=== PATIENT | male | born 1955 | race Caucasian/White ===

== ENCOUNTER 2017-01-17 13:46 | Inpatient (IN) ==
--- NOTE | 2017-01-17 13:54 | Emergency Department Note ---
Disposition Clinical Impression: Atrial fibrillation with rapid ventricular response, CHF (congestive heart failure) Disposition: Admitted As Inpatient Condition: Good General Adult HPI - General Stated complaint: "Afib" from UC Time Seen by Provider: 01/17/17 13:52 - Related Data Home Medications Medication Instructions Recorded Confirmed Doxycycline Hyclate [Doxycycline 100 mg PO Q48H 01/17/17 01/17/17 Hyclate] Lisinopril [Zestril] 20 mg PO DAILY 01/17/17 01/17/17 Metoprolol [Lopressor] 50 mg PO BID 01/17/17 01/17/17 Allergies Allergy/AdvReac Type Severity Reaction Status Date / Time Amoxicillin Allergy Rash Verified 01/17/17 16:26 Milk Containing Products Allergy Rash Verified 01/17/17 16:26 Penicillins [PCN] Allergy Rash Verified 07/26/15 14:43 Past Medical History - Past Medical History Medical history: Reports: hypertension Surgical history: Reports: non-contributory Psychiatric history: Reports: no psych history - Social History Smoking Status: Never smoker Smokeless Tobacco Status: No Alcohol use: Reports: none Drug use: Reports: none Course Vital Signs Temperature 97.6 F 01/17/17 13:50 Pulse Rate 131 01/17/17 13:50 Respiratory Rate 16 01/17/17 13:50 Blood Pressure 188/153 01/17/17 13:50 O2 Sat by Pulse Oximetry 96 01/17/17 13:50 Temperature 97.6 F 01/17/17 19:25 Pulse Rate 112 01/17/17 19:25 Respiratory Rate 18 01/17/17 19:25 Blood Pressure 144/97 01/17/17 19:25 O2 Sat by Pulse Oximetry 94 L 01/17/17 19:25 Oxygen Delivery Oxygen Delivery Room Air Medical Decision Making - Lab Data Result diagrams: 01/17/17 14:09 01/17/17 14:09 Lab Results 01/17/17 01/17/17 01/17/17 Range/Units 14:09 14:09 14:09 WBC 11.5 H (4.3-11.1) K/mcL RBC 5.43 (4.19-5.50) M/mcL Hgb 14.4 (12.9-16.9) g/dL Hct 45.1 (37.5-50.1) % MCV 83.1 (83.0-100.0) fL MCH 26.5 L (28.0-33.3) pg MCHC 31.9 (31.6-35.5) g/dL RDW 18.4 H (11.5-14.5) % Plt Count 389 (140-400) K/mcL MPV 11.6 (9.4-12.4) fL Immature Gran % 0.5 (0-4) % Seg Neutrophils % 78.9 % Lymphocytes % 12.8 % Monocytes % 6.2 % Eosinophils % 0.9 % Basophils % 0.7 % Neutrophils # 9.1 H (1.6-8.9) K/mcL Lymphocytes # 1.5 (0.6-4.6) K/mcL Monocytes # 0.7 (0.0-1.3) K/mcL Eosinophils # 0.1 (0.0-0.6) K/mcL Basophils # 0.1 (0.0-0.2) K/mcL PT (9.4-12.1) Seconds INR APTT (26.0-36.0) Seconds Sodium 140 (136-145) mEq/L Potassium 4.6 H (3.5-4.5) mEq/L Chloride 108 (98-109) mEq/L Carbon Dioxide 19 (19-29) mEq/L BUN 25 (8-26) mg/dL Creatinine 1.11 (0.72-1.25) mg/dL Est GFR ( Amer) > 60 (> 60) Est GFR (Non-Af Amer) > 60 (> 60) BUN/Creatinine Ratio 23 (6-26) Glucose 128 H (70-99) mg/dL Calculated Osmolality 296 (280-300) Calcium 9.4 (8.6-10.8) mg/dL Magnesium 1.6 (1.6-2.6) mg/dL Total Bilirubin 1.8 H (0.2-1.2) mg/dL AST 45 H (5-34) Units/L ALT 50 (0-55) Units/L Alkaline Phosphatase 264 H (38-126) Units/L Troponin I 0.09 H* (0-0.03) ng/mL B-Natriuretic Peptide (0-100) pg/mL Serum Total Protein 7.5 (6.0-8.3) g/dL Albumin 3.4 L (3.5-5.0) g/dL Globulin 4.1 H (2.4-3.5) g/dL Albumin/Globulin Ratio 0.8 L (1.1-2.2) TSH 3.653 (0.350-4.840) mcIU/mL 01/17/17 01/17/17 Range/Units 14:09 14:09 WBC (4.3-11.1) K/mcL RBC (4.19-5.50) M/mcL Hgb (12.9-16.9) g/dL Hct (37.5-50.1) % MCV (83.0-100.0) fL MCH (28.0-33.3) pg MCHC (31.6-35.5) g/dL RDW (11.5-14.5) % Plt Count (140-400) K/mcL MPV (9.4-12.4) fL Immature Gran % (0-4) % Seg Neutrophils % % Lymphocytes % % Monocytes % % Eosinophils % % Basophils % % Neutrophils # (1.6-8.9) K/mcL Lymphocytes # (0.6-4.6) K/mcL Monocytes # (0.0-1.3) K/mcL Eosinophils # (0.0-0.6) K/mcL Basophils # (0.0-0.2) K/mcL PT 15.7 H (9.4-12.1) Seconds INR 1.4 APTT 27.1 (26.0-36.0) Seconds Sodium (136-145) mEq/L Potassium (3.5-4.5) mEq/L Chloride (98-109) mEq/L Carbon Dioxide (19-29) mEq/L BUN (8-26) mg/dL Creatinine (0.72-1.25) mg/dL Est GFR ( Amer) (> 60) Est GFR (Non-Af Amer) (> 60) BUN/Creatinine Ratio (6-26) Glucose (70-99) mg/dL Calculated Osmolality (280-300) Calcium (8.6-10.8) mg/dL Magnesium (1.6-2.6) mg/dL Total Bilirubin (0.2-1.2) mg/dL AST (5-34) Units/L ALT (0-55) Units/L Alkaline Phosphatase (38-126) Units/L Troponin I (0-0.03) ng/mL B-Natriuretic Peptide 1175 H (0-100) pg/mL Serum Total Protein (6.0-8.3) g/dL Albumin (3.5-5.0) g/dL Globulin (2.4-3.5) g/dL Albumin/Globulin Ratio (1.1-2.2) TSH (0.350-4.840) mcIU/mL Critical Care Time Critical Care Time: Yes Total Critical Care Time: 30 Attestation: New-onset A. fib with RVR requiring IV rate control agents. Troponin positive. Patient admitted to the medicine service Attestation Statement - Attestation Attestation: I examined this patient and my medical decision-making was reviewed with the ENGINEERING TECHNICIAN PARKING/PA/Advanced Practice Nurse/Resident Physician. I agree with the documented findings, disposition and treatment plan as described except to the extent set forth below. [id number] time provided Patient sent from urgent care due to new onset atrial fibrillation. The patient appears in no acute distress on exam. EKG reviewed by me. 14:45: Patient's troponin is elevated. This could be due to demand ischemia. He will be admitted to the medicine service
[2017-01-17] MEDS ORDERED: *HR* Metoprolol 5 MG/5 ML VIAL IVP ONE ×2 (13:56→14:35)
[2017-01-17 14:16] LABS: Basophils # 0.1 K/mcL (0.0-0.2); Basophils % 0.7 %; Eosinophils # 0.1 K/mcL (0.0-0.6); Eosinophils % 0.9 %; Hematocrit 45.1 % (37.5-50.1); Hemoglobin 14.4 g/dL (12.9-16.9); Immature Granulocytes % 0.5 % (0-4); Lymphocytes # 1.5 K/mcL (0.6-4.6); Lymphocytes % 12.8 %; Mean Corpuscular HGB Conc 31.9 g/dL (31.6-35.5); Mean Corpuscular Hemoglobin 26.5 pg (28.0-33.3); Mean Corpuscular Volume 83.1 fL (83.0-100.0); Mean Platelet Volume 11.6 fL (9.4-12.4); Monocytes # 0.7 K/mcL (0.0-1.3); Monocytes % 6.2 %; Neutrophils # 9.1 K/mcL (1.6-8.9); Platelet Count 389 K/mcL (140-400); Red Blood Count 5.43 M/mcL (4.19-5.50); Red Cell Distribution Width 18.4 % (11.5-14.5); Segmented Neutrophils % 78.9 %
[2017-01-17 14:30] LABS: Alanine Aminotransferase 50 Units/L (0-55); Albumin 3.4 g/dL (3.5-5.0); Albumin/Globulin Ratio 0.8 (1.1-2.2); Alkaline Phosphatase 264 Units/L (38-126); Aspartate Amino Transferase 45 Units/L (5-34); BUN/Creatinine Ratio 23 (6-26); Bilirubin,Total 1.8 mg/dL (0.2-1.2); Blood Urea Nitrogen 25 mg/dL (8-26); Calcium 9.4 mg/dL (8.6-10.8); Carbon Dioxide 19 mEq/L (19-29); Chloride 108 mEq/L (98-109); Globulin 4.1 g/dL (2.4-3.5); Glucose 128 mg/dL (70-99); Magnesium 1.6 mg/dL (1.6-2.6); Osmolality,Calculated 296 (280-300); Potassium 4.6 mEq/L (3.5-4.5); Sodium 140 mEq/L (136-145); Total Protein 7.5 g/dL (6.0-8.3); eGFR For African Americans > 60 (> 60); eGFR For Non-African Americans > 60 (> 60)
[2017-01-17] MEDS ORDERED: Aspirin 81 MG TAB.CHEW PO ONE (14:35)
[2017-01-17 14:36] LABS: INR 1.4; Prothrombin Time 15.7 Seconds (9.4-12.1)
[2017-01-17 14:39] LABS: Activated Partial Thrombo Time 27.1 Seconds (26.0-36.0)
[2017-01-17] MEDS ORDERED: *HR* Enoxaparin 100 MG/ML SYRINGE SQ STA (14:39)
--- NOTE | 2017-01-17 14:43 | Emergency Department Note ---
Disposition Clinical Impression: Atrial fibrillation with rapid ventricular response CHF (congestive heart failure) Qualifiers: Congestive heart failure type: unspecified congestive heart failure type Congestive heart failure chronicity: acute Qualified Code(s): I50.9 - Heart failure, unspecified Disposition: Admitted As Inpatient Condition: Good Referrals: NO,PCP [Non-Partnered Physician] - Forms: ED Satisfaction Letter Time of Disposition: 14:50 SOB HPI - General Chief Complaint: ED Arrhythmia/Palpitations Stated Complaint: "Afib" from UC Time Seen by Provider: 01/17/17 13:52 Source: patient, family Mode of arrival: ambulatory Limitations: no limitations Nursing Notes Reviewed: Yes Vital Signs Reviewed: Yes - History of Present Illness 61-year-old male with past medical history of hypertension presents with shortness of breath worsening over the last week with associated nonproductive cough, fever and chills, and diarrhea. He has sick contacts similar symptoms and thought that he must have a viral syndrome. Additionally, he notes 2 pedal edema bilaterally and 10 pounds of weight gain over the last 2 weeks. He was seen in urgent care for this and found to be in atrial fibrillation with rapid ventricular response at 140. He was sent here for further evaluation and management. He denies any headache, confusion, chest pain, abdominal pain, nausea or vomiting, rashes, or calf tenderness. Pt Subjective Complaint: shortness of breath - Related Data Home Medications Medication Instructions Recorded Confirmed Blood Pressure Medication 12/19/16 Losartan 12/19/16 Previous Rx's Medication Instructions Recorded GuaiFENesin/Codeine [Robitussin 5 ml PO Q6HR PRN #120 ml 12/19/16 w/Codeine] Levofloxacin [Levaquin] 500 mg PO DAILY #10 tablet 12/19/16 MethylPREDNISolone [Medrol] 4 mg PO TAPER #21 tablet 12/19/16 Allergies Allergy/AdvReac Type Severity Reaction Status Date / Time Penicillins [PCN] Allergy Rash Verified 07/26/15 14:43 All systems ED: reviewed and negative except as stated. Past Medical History - Past Medical History Attestation: Yes The following information was validated with the patient. Source: patient Medical history: Reports: hypertension Surgical history: Reports: non-contributory Psychiatric history: Reports: no psych history - Social History Smoking Status: Never smoker Smokeless Tobacco Status: No Alcohol use: Reports: none Drug use: Reports: none Physical Exam - Head Head exam: atraumatic, normocephalic, normal inspection - Eye Eye exam: Present: normal appearance, PERRL, EOMI - ENT ENT exam: normal exam, normal oropharynx, mucous membranes moist - Neck Neck exam: Present: normal inspection, full ROM, trachea midline - Chest Chest inspection: Present: normal inspection, symmetric chest wall rise - Respiratory Respiratory exam: Clear to auscultation bilaterally without wheezes rales or rhonchi Cardiovascular Irregularly irregular without murmurs, rubs, or gallops. - Abdominal Exam Abdominal exam: Present: soft, Non-Tender. Absent: tenderness, distention, guarding, rebound, rigidity - Extremities Exam Mild bilateral pedal edema without erythema or Tenderness. Normal Pulses in all extremities. - Back Exam Back exam: Present: normal inspection, full ROM. Absent: tenderness, CVA tenderness (R), CVA tenderness (L) - Neurological Exam Neurological exam: Present: alert, oriented X3, CN II-XII intact - Psychiatric Psychiatric exam: Present: normal affect, normal mood - Skin Skin exam: Present: warm, dry, intact, normal color - General Limitations: no limitations General appearance: alert Course - Reevaluation(s) Reevaluation #1: Patient found to be in atrial fibrillation with rapid ventricular response initially at 144. Patient received 5 mg of Lopressor IV with significant improvement. Repeat EKG shows A. fib at 106. Chest x-ray shows congestive heart failure. Fluid bolus was canceled and not given by nurse. Patient is given Lasix in the emergency department. Troponin mildly elevated at 0.09. Note chest pain. No signs of ischemia on either EKG. This is likely due to elevated demand. Patient received aspirin and Lovenox in the emergency department. Hospitalist was paged. Time: 14:59 Reevaluation #2: Heart rate 107 on reevaluation. Blood pressure 150 systolic. Patient accepted to Dr[address] Reyes. Time: 15:44 Vital Signs Temperature 97.6 F 01/17/17 13:50 Pulse Rate 131 01/17/17 13:50 Respiratory Rate 16 01/17/17 13:50 Blood Pressure 188/153 01/17/17 13:50 O2 Sat by Pulse Oximetry 96 01/17/17 13:50 Temperature 97.6 F 01/17/17 13:50 Pulse Rate 123 01/17/17 14:12 Respiratory Rate 16 01/17/17 14:12 Blood Pressure 188/153 01/17/17 14:12 O2 Sat by Pulse Oximetry 96 01/17/17 14:12 Oxygen Delivery Oxygen Delivery Room Air Shortness of Breath/Dyspnea - Lab Data Result diagrams: 01/17/17 14:09 01/17/17 14:09 Lab Results 01/17/17 01/17/17 01/17/17 Range/Units 14:09 14:09 14:09 WBC 11.5 H (4.3-11.1) K/mcL RBC 5.43 (4.19-5.50) M/mcL Hgb 14.4 (12.9-16.9) g/dL Hct 45.1 (37.5-50.1) % MCV 83.1 (83.0-100.0) fL MCH 26.5 L (28.0-33.3) pg MCHC 31.9 (31.6-35.5) g/dL RDW 18.4 H (11.5-14.5) % Plt Count 389 (140-400) K/mcL MPV 11.6 (9.4-12.4) fL Immature Gran % 0.5 (0-4) % Seg Neutrophils % 78.9 % Lymphocytes % 12.8 % Monocytes % 6.2 % Eosinophils % 0.9 % Basophils % 0.7 % Neutrophils # 9.1 H (1.6-8.9) K/mcL Lymphocytes # 1.5 (0.6-4.6) K/mcL Monocytes # 0.7 (0.0-1.3) K/mcL Eosinophils # 0.1 (0.0-0.6) K/mcL Basophils # 0.1 (0.0-0.2) K/mcL PT (9.4-12.1) Seconds INR APTT (26.0-36.0) Seconds Sodium 140 (136-145) mEq/L Potassium 4.6 H (3.5-4.5) mEq/L Chloride 108 (98-109) mEq/L Carbon Dioxide 19 (19-29) mEq/L BUN 25 (8-26) mg/dL Creatinine 1.11 (0.72-1.25) mg/dL Est GFR ( Amer) > 60 (> 60) Est GFR (Non-Af Amer) > 60 (> 60) BUN/Creatinine Ratio 23 (6-26) Glucose 128 H (70-99) mg/dL Calculated Osmolality 296 (280-300) Calcium 9.4 (8.6-10.8) mg/dL Magnesium 1.6 (1.6-2.6) mg/dL Total Bilirubin 1.8 H (0.2-1.2) mg/dL AST 45 H (5-34) Units/L ALT 50 (0-55) Units/L Alkaline Phosphatase 264 H (38-126) Units/L Troponin I 0.09 H* (0-0.03) ng/mL Serum Total Protein 7.5 (6.0-8.3) g/dL Albumin 3.4 L (3.5-5.0) g/dL Globulin 4.1 H (2.4-3.5) g/dL Albumin/Globulin Ratio 0.8 L (1.1-2.2) TSH 3.653 (0.350-4.840) mcIU/mL 01/17/17 Range/Units 14:09 WBC (4.3-11.1) K/mcL RBC (4.19-5.50) M/mcL Hgb (12.9-16.9) g/dL Hct (37.5-50.1) % MCV (83.0-100.0) fL MCH (28.0-33.3) pg MCHC (31.6-35.5) g/dL RDW (11.5-14.5) % Plt Count (140-400) K/mcL MPV (9.4-12.4) fL Immature Gran % (0-4) % Seg Neutrophils % % Lymphocytes % % Monocytes % % Eosinophils % % Basophils % % Neutrophils # (1.6-8.9) K/mcL Lymphocytes # (0.6-4.6) K/mcL Monocytes # (0.0-1.3) K/mcL Eosinophils # (0.0-0.6) K/mcL Basophils # (0.0-0.2) K/mcL PT 15.7 H (9.4-12.1) Seconds INR 1.4 APTT 27.1 (26.0-36.0) Seconds Sodium (136-145) mEq/L Potassium (3.5-4.5) mEq/L Chloride (98-109) mEq/L Carbon Dioxide (19-29) mEq/L BUN (8-26) mg/dL Creatinine (0.72-1.25) mg/dL Est GFR ( Amer) (> 60) Est GFR (Non-Af Amer) (> 60) BUN/Creatinine Ratio (6-26) Glucose (70-99) mg/dL Calculated Osmolality (280-300) Calcium (8.6-10.8) mg/dL Magnesium (1.6-2.6) mg/dL Total Bilirubin (0.2-1.2) mg/dL AST (5-34) Units/L ALT (0-55) Units/L Alkaline Phosphatase (38-126) Units/L Troponin I (0-0.03) ng/mL Serum Total Protein (6.0-8.3) g/dL Albumin (3.5-5.0) g/dL Globulin (2.4-3.5) g/dL Albumin/Globulin Ratio (1.1-2.2) TSH (0.350-4.840) mcIU/mL - EKG Data EKG attestation: Yes I reviewed and interpreted this EKG. EKG results narrative: Atrial fibrillation with rapid ventricular response at 144. No ST elevation or definite depression. Nonspecific diffuse T wave changes. Atrial fibrillation is new when compared with 08/25/2011. Repeat EKG shows atrial fibrillation at 106 with left axis deviation. No ST elevation or depression. Unchanged from prior EKG other than rate.
[2017-01-17 14:52] LABS: Thyroid Stimulating Hormone 3.653 mcIU/mL (0.350-4.840)
[2017-01-17] MEDS ORDERED: Furosemide 40 MG/4 ML VIAL IVP ONE (14:54)
[2017-01-17] MEDS: 0.9 % Sodium Chloride 500 ML IV ONE ×2 (16:14→20:18)
[2017-01-17] MEDS ORDERED: Naloxone 0.4 MG/ML INJ IVP PRN (16:39)
--- NOTE | 2017-01-17 16:55 | Internal Med History&Physical ---
Date of Encounter: 01/17/17 Time of Encounter: 16:52 Assessment and Plan (1) Atrial fibrillation with rapid ventricular response Current visit: Yes Status: Acute Patient with new onset Afib with RVR, initial HR 144. Patient already taking 50mg lopressor BID for hypertension. Given total of 10mg IVP metoprolol in ED. 1mg/kg Lovenox SQ BID Cardizem drip continuous hotel guest service agent consult to cardiology (2) CHF (congestive heart failure) Current visit: Yes Status: Acute Patient presents with SOB and BLE edema, with increase in weiht by 10 obs in the last 2 weeks. Patient denies any history of CHF. He had an echocardiogram which showed LVEF of 60%, normal LV systolic function, Severe LV concentric hypertrophy, moderate diastolic dysfunction. CXR today shows mild cardiomegaly, pulmonary edema, and probable small pleural effusions, compatible with CHF. Lasix 40mg IVP given in ED Lasix 40mg IVP BID continuous hotel guest service agent serial troponins consult to cardiology Qualifiers: Congestive heart failure type: diastolic Congestive heart failure chronicity: acute Qualified Code(s): I50.31 - Acute diastolic (congestive) heart failure (3) Hypertension Current visit: Yes Status: Acute Continue home dose of lisinopril and metoprolol. Qualifiers: Hypertension type: essential hypertension Qualified Code(s): I10 - Essential (primary) hypertension (4) Elevated troponin Current visit: Yes Status: Acute Troponin of 0.09. EKG shows Afib with RVR, no ST elevations or depressions. Troponin elevation likely demand ischemia. Continuous hotel guest service agent serial troponins (5) DVT prophylaxis Current visit: Yes Status: Acute anti-embolic stockings therapeutic dose of lovenox given for new onset afib. Internal Medicine - H&P: HPI Chief complaint: shortness of breath Admitted From: Emergency Dept Plans for Post Hospital Care: Home History of present illness: Mr. Munguia is a 61 year old male with hypertension, and arthritis who presented to the emergency department after being sent over from urgent care for atrial fibrillation with rapid ventricular response. Patient reports he had a cough, chills, and sweats since about Thursday, he reports his lower extremities started swelling. He noticed he was feeling short of breath going up stairs and walking around. He reports he has gained 10 pounds of weight in the last 2 weeks. He thought he had a viral illness which is why he went to urgent care. He was found to be in atrial fibrillation with rapid ventricular response and heart rate of 144. Evaluation in the emergency department included a chest x-ray which showed mild cardiomegaly, pulmonary edema, and probable small pleural effusions, compatible with CHF. Troponin was found to be elevated 0.09. This is felt to be demand ischemia. EKG was repeated with a rate of [address] elevations or depressions. Patient was given a therapeutic dose of Lovenox, 40 mg of IV Lasix, and a total of 10 mg of IV metoprolol. On my exam, patient is alert and oriented in no acute distress. Heart is tachycardic, bilateral lower extremities have +2 edema. Lungs with fine crackles. Past Med Surg Social Fam HX - Past Medical History Medical history: arthritis, hypertension Psychiatric history: no psych history - Past Surgical History Surgical History: orthopedic, other (Left knee, right knee, left shoulder replacement, urethral stent) - Social History Smoking Status: Never smoker Smokeless Tobacco Status: No Alcohol use: rarely Drug use: none - Family History Mother Living Status: Age at : 86 Father Living Status: Age at : 86 Hx Family Cardiac Disorders: Yes Hx Family Endocrine Disorder: Yes (diabetes) Internal Medicine - H&P: Meds Doxycycline Hyclate [Doxycycline Hyclate] 100 mg PO Q48H 01/17/17 [History] Lisinopril [Zestril] 20 mg PO DAILY 01/17/17 [History] Metoprolol [Lopressor] 50 mg PO BID 01/17/17 [History] Allergies Amoxicillin Allergy (Verified 01/17/17 16:26) Rash Milk Containing Products Allergy (Verified 01/17/17 16:26) Rash Penicillins [PCN] Allergy (Verified 07/26/15 14:43) Rash All Systems PM: A 10-system review of systems was performed and is negative for pertinent findings except as documented above in the HPI. - Constitutional Constitutional: chills, night sweats, weight gain, no fever(s) - EENT Eyes: no change in vision, no discharge, no pain, no photophobia Ears: no ear discharge, no ear pain, no tinnitus Nose, mouth and throat: nasal congestion, nasal discharge, sinus pressure, no dysphagia, no neck pain, no sore throat - Cardiovascular Cardiovascular ROS IM: dyspnea, dyspnea on exertion, no chest pain, no diaphoresis, no lightheadedness, no palpitations, no syncope - Respiratory Respiratory: cough, dyspnea, dyspnea on exertion, no wheezing, no excessive phlegm production - Gastrointestinal Gastrointestinal: no abdominal pain, no diarrhea, no hematemesis, no hematochezia, no melena, no nausea, no vomiting - Musculoskeletal Musculoskeletal ROS IM: no numbness, no tingling - Integumentary Integumentary IM: no rash, no unusual bruising - Neurological Neurological ROS: no confusion, no convulsions, no focal weakness, no numbness, no tingling, no tremor(s) - Hematologic/Lymphatic Hematologic/Lymphatic: no easy bruising - Constitutional Vitals: Temp Pulse Resp BP Pulse Ox 97.6 F 125 16 129/114 96 01/17/17 13:50 01/17/17 16:30 01/17/17 16:42 01/17/17 16:42 01/17/17 16:30 General appearance: Present: A&O X 3, pleasant, no acute distress - Head Head exam: Present: atraumatic, normocephalic - Eye Eye exam: Present: PERRL, conjuntiva pink, sclera anicteric Pupils: Present: PERRL - Neck Neck exam general surgery: Present: supple, trachea midline. Absent: lymphadenopathy - Respiratory Respiratory exam: Absent: accessory muscle use, rales, rhonchi, wheezes Additional comments: mild crackles - Cardiovascular Cardiovascular exam: Present: +S1, +S2, tachycardia. Absent: diastolic murmur, gallop, rubs, systolic murmur - GI/Abdominal GI/Abdominal exam: Present: normal bowel sounds, soft, no peritoneal signs. Absent: distended, tenderness - Extremities Exam Extremities exam: Present: warm, radial pulses palpable and symetrical. Absent : calf tenderness, cyanotic, pedal edema - Neurological Exam Neurological exam: Present: CN II-XII intact, oriented X3, no focal deficits. Absent: facial droop, speech deficit - Skin Skin exam: Present: dry, intact Internal Med - H&P Results - Labs CBC & Chem 7: 01/17/17 14:09 01/17/17 14:09 Labs: All Lab Results (24 Hours) 01/17/17 01/17/17 01/17/17 Range/Units 14:09 14:09 14:09 WBC 11.5 H (4.3-11.1) K/mcL RBC 5.43 (4.19-5.50) M/mcL Hgb 14.4 (12.9-16.9) g/dL Hct 45.1 (37.5-50.1) % MCV 83.1 (83.0-100.0) fL MCH 26.5 L (28.0-33.3) pg MCHC 31.9 (31.6-35.5) g/dL RDW 18.4 H (11.5-14.5) % Plt Count 389 (140-400) K/mcL MPV 11.6 (9.4-12.4) fL Immature Gran % 0.5 (0-4) % Seg Neutrophils % 78.9 % Lymphocytes % 12.8 % Monocytes % 6.2 % Eosinophils % 0.9 % Basophils % 0.7 % Neutrophils # 9.1 H (1.6-8.9) K/mcL Lymphocytes # 1.5 (0.6-4.6) K/mcL Monocytes # 0.7 (0.0-1.3) K/mcL Eosinophils # 0.1 (0.0-0.6) K/mcL Basophils # 0.1 (0.0-0.2) K/mcL PT (9.4-12.1) Seconds INR APTT (26.0-36.0) Seconds Sodium 140 (136-145) mEq/L Potassium 4.6 H (3.5-4.5) mEq/L Chloride 108 (98-109) mEq/L Carbon Dioxide 19 (19-29) mEq/L BUN 25 (8-26) mg/dL Creatinine 1.11 (0.72-1.25) mg/dL Est GFR ( Amer) > 60 (> 60) Est GFR (Non-Af Amer) > 60 (> 60) BUN/Creatinine Ratio 23 (6-26) Glucose 128 H (70-99) mg/dL Calculated Osmolality 296 (280-300) Calcium 9.4 (8.6-10.8) mg/dL Magnesium 1.6 (1.6-2.6) mg/dL Total Bilirubin 1.8 H (0.2-1.2) mg/dL AST 45 H (5-34) Units/L ALT 50 (0-55) Units/L Alkaline Phosphatase 264 H (38-126) Units/L Troponin I 0.09 H* (0-0.03) ng/mL B-Natriuretic Peptide (0-100) pg/mL Serum Total Protein 7.5 (6.0-8.3) g/dL Albumin 3.4 L (3.5-5.0) g/dL Globulin 4.1 H (2.4-3.5) g/dL Albumin/Globulin Ratio 0.8 L (1.1-2.2) TSH 3.653 (0.350-4.840) mcIU/mL 01/17/17 01/17/17 Range/Units 14:09 14:09 WBC (4.3-11.1) K/mcL RBC (4.19-5.50) M/mcL Hgb (12.9-16.9) g/dL Hct (37.5-50.1) % MCV (83.0-100.0) fL MCH (28.0-33.3) pg MCHC (31.6-35.5) g/dL RDW (11.5-14.5) % Plt Count (140-400) K/mcL MPV (9.4-12.4) fL Immature Gran % (0-4) % Seg Neutrophils % % Lymphocytes % % Monocytes % % Eosinophils % % Basophils % % Neutrophils # (1.6-8.9) K/mcL Lymphocytes # (0.6-4.6) K/mcL Monocytes # (0.0-1.3) K/mcL Eosinophils # (0.0-0.6) K/mcL Basophils # (0.0-0.2) K/mcL PT 15.7 H (9.4-12.1) Seconds INR 1.4 APTT 27.1 (26.0-36.0) Seconds Sodium (136-145) mEq/L Potassium (3.5-4.5) mEq/L Chloride (98-109) mEq/L Carbon Dioxide (19-29) mEq/L BUN (8-26) mg/dL Creatinine (0.72-1.25) mg/dL Est GFR ( Amer) (> 60) Est GFR (Non-Af Amer) (> 60) BUN/Creatinine Ratio (6-26) Glucose (70-99) mg/dL Calculated Osmolality (280-300) Calcium (8.6-10.8) mg/dL Magnesium (1.6-2.6) mg/dL Total Bilirubin (0.2-1.2) mg/dL AST (5-34) Units/L ALT (0-55) Units/L Alkaline Phosphatase (38-126) Units/L Troponin I (0-0.03) ng/mL B-Natriuretic Peptide 1175 H (0-100) pg/mL Serum Total Protein (6.0-8.3) g/dL Albumin (3.5-5.0) g/dL Globulin (2.4-3.5) g/dL Albumin/Globulin Ratio (1.1-2.2) TSH (0.350-4.840) mcIU/mL - Diagnostic Studies Chest x-ray Additional comments: Chest X-Ray 01/17/17 14:35 IMPRESSION: Cardiomegaly, pulmonary edema, and probable small pleural effusions, compatible with CHF. D/ / Tera Llamas MD / Tera Llamas MD Interpreting Provider: Tera Llamas MD
[2017-01-17] MEDS ORDERED: Calcium Gluconate 1,000 MG in D5% in Water 100 ML IVPB ONE (20:03)
[2017-01-17] MEDS ORDERED: Furosemide 20 MG/2 ML VIAL IVP ONE (23:23)
--- NOTE | 2017-01-17 23:44 | Event Note ---
Date of Encounter: 01/17/17 Time of Encounter: 23:41 Patient seen and examined with nurse practitioner. Agree with assessment and plan. Patient presents with heart failure symptoms due to atrial fibrillation with rapid ventricular response. Patient was started on Cardizem drip for a control. Will start Lasix 40 mg IV twice a day. He had the recent echo showing concentric LVH and diastolic dysfunction. His child's score is tool because of hypertension and congestive heart failure. He is on full dose Lovenox. He denies any chest pain. He has risk factors for coronary disease including a huge hypertension male sex and the brother who recently had cabbage at the age of 56. cardiology service to see the patient. He has been getting doxycycline by his orthopedic surgeon for left shoulder infection. Inpatient admission
[2017-01-18 04:33] LABS: Basophils # 0.1 K/mcL (0.0-0.2); Basophils % 0.8 %; Eosinophils # 0.1 K/mcL (0.0-0.6); Eosinophils % 1.3 %; Hematocrit 41.4 % (37.5-50.1); Immature Granulocytes % 0.7 % (0-4); Lymphocytes # 1.7 K/mcL (0.6-4.6); Lymphocytes % 16.1 %; Mean Corpuscular HGB Conc 31.4 g/dL (31.6-35.5); Mean Corpuscular Hemoglobin 26.1 pg (28.0-33.3); Mean Platelet Volume 11.3 fL (9.4-12.4); Monocytes # 0.6 K/mcL (0.0-1.3); Monocytes % 6.2 %; Neutrophils # 7.8 K/mcL (1.6-8.9); Platelet Count 331 K/mcL (140-400); Red Blood Count 4.99 M/mcL (4.19-5.50); Red Cell Distribution Width 17.8 % (11.5-14.5); Segmented Neutrophils % 74.9 %
[2017-01-18 04:50] LABS: BUN/Creatinine Ratio 25 (6-26); Blood Urea Nitrogen 31 mg/dL (8-26); Carbon Dioxide 21 mEq/L (19-29); Chloride 107 mEq/L (98-109); Glucose 126 mg/dL (70-99); Osmolality,Calculated 298 (280-300); Sodium 140 mEq/L (136-145); eGFR For African Americans > 60 (> 60); eGFR For Non-African Americans 59 (> 60)
[2017-01-18] MEDS: *HR* Enoxaparin 100 MG/ML SYRINGE SQ SCH ×2 (05:47→17:25)
[2017-01-18] MEDS ORDERED: Furosemide 20 MG/2 ML VIAL IVP SCH (08:00)
[2017-01-18] MEDS: Aspirin Enteric Coated 81 MG Tablet PO SCH (08:32)
[2017-01-18] MEDS: Doxycycline 100 MG CAPSULE PO SCH (08:32)
[2017-01-18] MEDS: Lisinopril 20 MG TABLET PO SCH (08:33)
[2017-01-18] MEDS: Furosemide 20 MG/2 ML VIAL IVP SCH ×2 (08:37→17:25)
--- NOTE | 2017-01-18 08:39 | Cardiology Consult Note ---
Date of Encounter: 01/18/17 Time of Encounter: 08:34 Assessment and Plan (1) Atrial fibrillation with rapid ventricular response Current Visit: Yes Status: Acute Patient with new onset Afib with RVR, initial HR 140s. Reports previously drinking 80 fluid oz of pop/day. Reports stopped 2 weeks ago. On Lopressor 50mg BID as home med. Currently on Cardizem gtt at 5mg/hr and HR 70s at bedside. Will transition to PO Cardizem CD 120mg daily. CHADSVASC 2 (HTN, CHF). Anticoagulation warranted. Currently on therapeutic Lovenox. Discussed Coumadin vs. NOACs. He prefers NOAC. Will [place] check. Echo to evaluate structure and function. Most recent echo 07/2016 showed preserved EF 60% with moderate diastolic dysfunction, severe concentric LVH, mild MR. K 4.0, Mag 1.6--replace. TSH 3.653. Recommend sleep study as outpt for DANA evaluation. (2) CHF (congestive heart failure) Current Visit: Yes Status: Acute Patient presents with SOB and BLE edema, with 12 pound weight gain in the last 2 weeks. CHF likely secondary to A-Fib with RVR onset. Suspected diastolic CHF. Echo 07/2016 LVEF of 60%, severe concentric LVH, moderate diastolic dysfunction. CXR today shows mild cardiomegaly, pulmonary edema, and probable small pleural effusions, compatible with CHF. BNP 1175. Agree with IV Lasix 40mg BID. Cumulative I/O negative -1365mL. Recommend Strict I/O, daily weights, Na and fluid restriction. Recheck echo to evaluate structure and function. Qualifiers: Congestive heart failure type: diastolic Congestive heart failure chronicity: acute Qualified Code(s): I50.31 - Acute diastolic (congestive) heart failure (3) Elevated troponin Current Visit: Yes Status: Acute Troponin 0.09, 0.10, 0.08--flat and adynamic in setting of A-Fib with RVR, rate 140s on presentation and with hypertensive urgency on admission--BP recorded as 188/153. Suspect demand ischemia, nondiagnostic for ACS. Pt denies chest pain. Check echo to evaluate structure and function. (4) Hypertension Current Visit: Yes Status: Acute Not well controlled. 160s systolic this AM. Continue Lopressor and Lisinopril. Starting PO Cardizem for HR control. Continue to monitor and adjust antihypertensives as necessary. Qualifiers: Hypertension type: essential hypertension Qualified Code(s): I10 - Essential (primary) hypertension Discussion w patient/family: The assessment and plan as outlined above was discussed with the patient and/or family members who expressed understanding and agreement. All questions were answered. Thank you for involving us in the care of your patient. Please call with any questions. I will discuss all the above with Dr. Alex and make changes as necessary. History of Present Illness Consult date: 01/18/17 Requesting physician: Jonny Randhawa Consult reason: A-Fib Chief complaint: Dyspnea, lower extremity edema History of present illness: Mr. Munguia is a 61 year old male with PMH of hypertension and arthritis who presented to the ED after being sent over from urgent care for A-Fib with RVR. Reports cough, chills, and sweats since Thursday. He started having lower extremity edema on Thursday. He noticed he was feeling short of breath going up stairs Thursday evening, which was new. He reports he has gained 12 pounds of weight in the last 2 weeks. He thought he had a viral illness which is why he went to urgent care. He was found to be in A-Fib with RVR, HR of 144. CXR shows mild cardiomegaly, pulmonary edema, and probable small pleural effusions, compatible with CHF. BNP 1175. Troponin 0.09, 0.10, 0.08. Patient was given a therapeutic dose of Lovenox, 40 mg of IV Lasix, and a total of 10 mg of IV metoprolol, started on Cardizem gtt. HR currently 70s at bedside, A-Fib on Cardizem gtt 5mg/hr. Pt denies chest pain or palpitations. Negative stress test 2013. Echo 07/2016 EF 60%, severe concentric LVH, moderate diastolic dysfunction , RV mildly dilated with normal function, mild [place] Pt admits to drinking up to 80 fluid ounces of pop up until 2 weeks ago when he stopped. Past Med Surg Social Fam HX - Past Medical History Medical history: arthritis, hypertension Psychiatric history: no psych history - Past Surgical History Surgical History: orthopedic, other (Left knee, right knee, left shoulder replacement, urethral stent) - Social History Smoking Status: Never smoker Smokeless Tobacco Status: No Alcohol use: rarely Drug use: none - Family History Mother Living Status: Age at : 86 Father Living Status: Age at : 86 Hx Family Cardiac Disorders: Yes Hx Family Endocrine Disorder: Yes (diabetes) Medications and Allergies Doxycycline Hyclate [Doxycycline Hyclate] 100 mg PO Q48H 01/17/17 [History] Lisinopril [Zestril] 20 mg PO DAILY 01/17/17 [History] Metoprolol [Lopressor] 50 mg PO BID 01/17/17 [History] Allergies Amoxicillin Allergy (Verified 01/17/17 16:26) Rash Milk Containing Products Allergy (Verified 01/17/17 16:26) Rash Penicillins [PCN] Allergy (Verified 07/26/15 14:43) Rash All Systems Review: A 10-system review of systems was performed and is negative for pertinent findings except as documented above in the HPI. - Constitutional Constitutional: chills, night sweats, weight gain - Cardiovascular Cardiovascular: as per HPI, dyspnea on exertion, leg edema - Respiratory Respiratory: cough, dyspnea Physical Examination Vital Signs, Last 4 Hours Temp Pulse Resp BP Pulse Ox 01/18/17 07:02 98.0 F 76 16 167/98 95 Vital Signs Temp Pulse Resp BP Pulse Ox 01/18/17 07:02 98.0 F 76 16 167/98 95 01/18/17 03:42 97.4 F L 87 18 170/94 95 01/17/17 23:44 97.4 F L 88 16 156/105 96 01/17/17 19:25 97.6 F 112 18 144/97 94 L 01/17/17 16:42 16 129/114 01/17/17 16:30 125 16 129/114 96 01/17/17 16:00 110 16 143/125 96 01/17/17 15:11 114 16 150/114 97 01/17/17 14:41 127 16 151/138 96 01/17/17 14:12 123 16 188/153 96 01/17/17 13:50 97.6 F 131 16 188/153 96 Intake and Output 01/17/17 01/18/17 01/18/17 22:59 07:59 15:59 Intake Total 120 / 120 Output Total Balance 120 / 120 Intake: IV Fluids Cardizem 125 MG In Dextrose 5% 100 ML @ 5 MG /HR 5 mls/hr IVC .Q24H [facility] Rx#:[id number] Calcium Gluconate 1,000 MG In Dextrose 5% 100 ML @ 220 mls/hr IVPB ONCE ONE Rx#:[id number] Oral 120 / 120 Output: Urine Other: Meal Breakfast Percent of Meal Consumed 100% Weight Patient Weight 01/19/17 00:59 Weight 93.803 kg General: Conversant, No Apparent Distress HEENT: Atraumatic, Normocephaly, Mucus Membranes Moist Neck: Normal carotid pulses Cardiac: Other (irregularly irregular) Lungs: Other (mild crackles at bases) Neuro: Alert and responsive, No focal deficits noted Abdomen: Soft, Non-Tender Skin: No rashes noted on visualized skin Musculoskeletal: No Chest Wall Tenderness Extremities: Other (mild BLE edema, WILBERT hose on) Results 01/18/17 04:01 01/18/17 04:01 Lab Results 01/17/17 01/18/17 01/18/17 19:47 04:01 04:01 WBC 10.4 Hgb 13.0 Hct 41.4 Plt Count 331 Sodium Potassium Chloride Carbon Dioxide BUN Creatinine Glucose Calcium Troponin I 0.10 H* 0.08 H* 01/18/17 04:01 WBC Hgb Hct Plt Count Sodium 140 Potassium 4.0 Chloride 107 Carbon Dioxide 21 BUN 31 H Creatinine 1.24 Glucose 126 H Calcium 9.0 Troponin I Short CBC 01/18/17 01/17/17 Range/Units 04:01 14:09 WBC 10.4 11.5 H (4.3-11.1) K/mcL Hgb 13.0 14.4 (12.9-16.9) g/dL Hct 41.4 45.1 (37.5-50.1) % Plt Count 331 389 (140-400) K/mcL Neutrophils # 7.8 9.1 H (1.6-8.9) K/mcL BMP 01/18/17 01/17/17 Range/Units 04:01 14:09 Sodium 140 140 (136-145) mEq/L Potassium 4.0 4.6 H (3.5-4.5) mEq/L Chloride 107 108 (98-109) mEq/L Carbon Dioxide 21 19 (19-29) mEq/L BUN 31 H 25 (8-26) mg/dL Creatinine 1.24 1.11 (0.72-1.25) mg/dL Glucose 126 H 128 H (70-99) mg/dL Calcium 9.0 9.4 (8.6-10.8) mg/dL Cardiac Enzymes 01/18/17 01/17/17 01/17/17 Range/Units 04:01 19:47 14:09 Troponin I 0.08 H* 0.10 H* 0.09 H* (0-0.03) ng/mL Liver Function 01/17/17 Range/Units 14:09 Total Bilirubin 1.8 H (0.2-1.2) mg/dL AST 45 H (5-34) Units/L ALT 50 (0-55) Units/L Alkaline Phosphatase 264 H (38-126) Units/L Albumin 3.4 L (3.5-5.0) g/dL Impressions Chest X-Ray 01/17/17 14:35 IMPRESSION: Cardiomegaly, pulmonary edema, and probable small pleural effusions, compatible with CHF. D/ / Tera Llamas MD / Tera Llamas MD Interpreting Provider: Tera Llamas MD Active Medications Aspirin (Aspirin Ec) 81 mg PO DAILY [facility] Stop: 07/20/17 09:01 Last Admin: 01/18/17 08:32 Dose: 81 mg Doxycycline Hyclate (Doxycycline) 100 mg PO Q48H [facility] Stop: 07/20/17 09:01 Last Admin: 01/18/17 08:32 Dose: 100 mg Enoxaparin Sodium (Lovenox) 90 mg 1 mg/kg (90 mg) SQ Q12HR [facility] PRN Reason: Protocol Stop: 07/20/17 06:01 Last Admin: 01/18/17 05:47 Dose: 90 mg Furosemide (Lasix) 40 mg IVP BIDDIURETIC [facility] Stop: 07/20/17 08:01 Last Admin: 01/18/17 08:37 Dose: 40 mg Diltiazem HCl 125 mg/ Dextrose 125 mls @ 5 mls/hr IVC .Q24H [facility] PRN Reason: 5 MG/HR Stop: 07/19/17 18:31 Last Infusion: 01/18/17 05:51 Dose: 5 mg/hr, 5 mls/hr Lisinopril (Zestril) 20 mg PO DAILY [facility] PRN Reason: Protocol Stop: 07/20/17 09:01 Last Admin: 01/18/17 08:33 Dose: 20 mg Metoprolol Tartrate (Lopressor) 50 mg PO BID [facility] Stop: 07/19/17 21:01 Last Admin: 01/18/17 08:32 Dose: 50 mg Naloxone HCl (Narcan) 0.4 mg IVP Q2MIN PRN PRN Reason: Opioid Reversal Stop: 07/19/17 16:40 - Imaging and Cardiology Chest Xray: report reviewed Stress Test: report reviewed Echo: report reviewed - EKG Interpretation EKG results cardiology: personally reviewed (A-Fib, rate 106.), other (24 hour tele AVG HR 90, A-Fib, 4 beat run NSVT) Consult Discharge Plan - Plan Referrals: Miriam Marinelli MD [Primary Care Provider] - (web request sent on )
[2017-01-18] MEDS ORDERED: Magnesium Sulfate 2 GM in D5% in Water 100 ML IVPB ONE (09:24)
[2017-01-18] MEDS: Diltiazem CD (24hr) 120 MG CAPSULE PO SCH (11:01)
--- NOTE | 2017-01-18 11:05 | Internal Med Progress Note ---
Date of Encounter: 01/18/17 Time of Encounter: 09:20 - Assessment and plan (1) Atrial fibrillation with rapid ventricular response Current Visit: Yes Status: Acute Assessment and plan: Newly diagnosed Afib with RVR, initial HR 140s. On Lopressor 50mg BID as home med. d/c Cardizem drip and transition to po CHADSVASC 2 (HTN, CHF). Follow ECHO Continue Lovenox Will transition to po before d/c Continuous telemetry (2) CHF (congestive heart failure) Current Visit: Yes Status: Acute Assessment and plan: Patient with evidence of fulid overload on admission-Crackles, Pulm edema on CXR , leg swelling ECHO 07/2016 LVEF of 60%, severe concentric LVH, moderate diastolic dysfunction. I/O negative -1365mL Continue Lasix IV 40bid Continue Strict I/O Daily weights Follow ECHO Qualifiers: Congestive heart failure type: diastolic Congestive heart failure chronicity: acute Qualified Code(s): I50.31 - Acute diastolic (congestive) heart failure (3) DVT prophylaxis Current Visit: Yes Status: Acute Assessment and plan: On lovenox for Afib (4) Elevated troponin Current Visit: Yes Status: Acute Assessment and plan: Secondary to ischemia, downtrending now (5) Hypertension Current Visit: Yes Status: Chronic Assessment and plan: Controlled, continue meds Qualifiers: Hypertension type: essential hypertension Qualified Code(s): I10 - Essential (primary) hypertension - Subjective Interval history: Seen and examined at bedside reports improvement His leg edema is decreasing and his shortness of breath has improved - Constitutional Vitals: Temp Pulse Resp BP Pulse Ox 98.2 F 65 16 101/59 94 L 01/18/17 11:02 01/18/17 11:02 01/18/17 11:02 01/18/17 11:02 01/18/17 11:02 General appearance: Present: A&O X 3, pleasant, no acute distress - Head Head exam: Present: atraumatic - Eye Eye exam: Present: PERRL, conjuntiva pink, sclera anicteric Pupils: Present: PERRL - Neck Neck exam general surgery: Present: supple, trachea midline. Absent: lymphadenopathy - Respiratory Respiratory exam: Present: rales. Absent: accessory muscle use, rhonchi, wheezes - Cardiovascular Cardiovascular exam: Present: irregular rhythm, +S1, +S2. Absent: diastolic murmur, gallop, JVD, rubs, systolic murmur - GI/Abdominal GI/Abdominal exam: Present: normal bowel sounds, soft, no peritoneal signs. Absent: distended, tenderness - Extremities Exam Extremities exam: Present: warm, radial pulses palpable and symetrical. Absent : calf tenderness, cyanotic, pedal edema - Neurological Exam Neurological exam: Present: CN II-XII intact, oriented X3, no focal deficits. Absent: pronater drift, facial droop, speech deficit - Skin Skin exam: Present: dry, intact Internal Medicine: Result - Labs CBC & Chem 7: 01/18/17 04:01 01/18/17 04:01 Labs: Short CBC 01/18/17 Range/Units 04:01 WBC 10.4 (4.3-11.1) K/mcL Hgb 13.0 (12.9-16.9) g/dL Hct 41.4 (37.5-50.1) % Plt Count 331 (140-400) K/mcL Neutrophils # 7.8 (1.6-8.9) K/mcL BMP 01/18/17 04:01 Sodium 140 Potassium 4.0 Chloride 107 Carbon Dioxide 21 BUN 31 H Creatinine 1.24 Glucose 126 H Calcium 9.0 Cardiac Enzymes 01/17/17 01/18/17 Range/Units 19:47 04:01 Troponin I 0.10 H* 0.08 H* (0-0.03) ng/mL - ABG Interpretation ABG results: PT/INR, D-dimer PT 15.7 Seconds (9.4-12.1) H 01/17/17 14:09 - VTE Documentation of Mechanical Device: Graduated compression elastic hosiery Consult Discharge Plan - Plan Referrals: Miriam Marinelli MD [Primary Care Provider] - (web request sent on )
--- NOTE | 2017-01-18 21:30 | ECHO - Doppler Report ---
Echocardiogram Name: Perfecto Munguia Date of Study: 01/18/2017 Date: 1955 Ht: 67.0 in Medical Record#: [id number] Age: 61 Wt: 200.0 lb Gender: Male BSA: 2.02 Order #: [id number] Location: [facility] Room #: [id number] Reading Physician: Robert Alex DO, AYAKA, GOLD JOSUE [employer] Technician: Kenia Gastelum RDCS Ordering Physician: Luis Enrique Bearden CNP Primary Physician: Miriam Marinelli MD Indications: Atrial fibrillation, Congestive heart failure Impressions: LVEF 35%. Severe concentric left ventricular hypertrophy. Moderate global left ventricular systolic dysfunction. Indeterminate diastolic function. Mildly dilated and hypokinetic right ventricle. Moderate to severe biatrial enlargement. Mild mitral regurgitation. Mild pulmonary hypertension. Left Ventricular Wall Motion: Rest Echo Findings The apex, apical inferior, mid inferior, basal inferior, apical anterior, mid anterior, basal anterior, apical septal, mid inferior septal, basal inferior septal, apical lateral, mid anterior lateral, basal anterior lateral, mid anterior septal, mid inferior lateral, basal anterior septal and basal inferior lateral avila were hypokinetic. Findings: Study Quality * Technically adequate exam. ECG Findings * Atrial fibrillation. Left Ventricle * LVEF 35%. * Severe concentric left ventricular hypertrophy. * Moderate global left ventricular systolic dysfunction. * Indeterminate diastolic function. Right Ventricle * Mildly dilated and hypokinetic right ventricle. Left Atrium * Moderate to severely dilated left atrium. Right Atrium * Moderate to severely dilated right atrium. Interatrial Septum * No evidence of PFO by color Doppler. Aortic Valve * Trileaflet aortic valve. * Mildly sclerotic aortic valve leaflets. * No aortic regurgitation. * No aortic stenosis. Mitral Valve * Moderate mitral annular calcification * Mildly thickened mitral valve leaflets. * Mild mitral regurgitation. * No mitral stenosis. Tricuspid Valve * Normal tricuspid valve structure and function. * Trace tricuspid regurgitation. * Mild pulmonary hypertension. Pulmonic Valve * Normal pulmonic valve structure. * Mild pulmonic regurgitation. Aorta * Normally sized aortic root. Pericardium * The pericardium appears normal. IVC * Normal IVC dimensions and inspiratory collapse. Pulmonary Artery * Normal visualized portions of the main pulmonary artery. History Hypertension 07-21-16 a Previous Echo was performed. Measurements: BP: 152/ 93 2D Normal Values RVIDd: 3.60 cm <2.7 cm IVSd: 1.70 cm 0.6 - 1.0 cm LVIDd: 5.00 cm 3.7 - 5.6 cm LVPWd: 1.70 cm 0.6 - 1.1 cm LVIDs: 4.20 cm 1.5 - 3.6 cm AO: 3.50 cm < 4.0 cm LA: 4.25 cm 2.0 - 4.0cm %FS: 16.00 cm >25 % LVOT Diam: 2.00 cm LA volume: 88 Mitral Valve Peak E:1.47 m/sec Peak A:.35 m/sec E/A Ratio:4.2 Peak E' Lat Marquis:6.04 cm/s Peak E' Med Marquis:4.41 cm/s E/E' Lat Ratio:24.3 E/E' Med Ratio:33.3 Tricuspid Valve TV Regurg Peak Grad: 31.00mmHg TV Regurg Peak Marquis: 2.80m/sec Updated by Robert Alex DO, AYAKA, GOLD JOSUE on 01/18/2017 9:23:11 PM electronically signed on 01/18/2017 9:24:04 PM with status of Final Wall Motion Rosales: 1=Normal, 2=Hypokinesis, 3=Akinesis, 4=Dyskinesis, 5=Aneurysmal, 6=Hyperkinetic, X=Not Visualized (Blank)=Missing
[2017-01-19 05:33] LABS: Basophils # 0.1 K/mcL (0.0-0.2); Basophils % 0.7 %; Eosinophils # 0.4 K/mcL (0.0-0.6); Hematocrit 40.5 % (37.5-50.1); Immature Granulocytes % 0.3 % (0-4); Lymphocytes # 1.8 K/mcL (0.6-4.6); Lymphocytes % 24.4 %; Mean Corpuscular HGB Conc 32.1 g/dL (31.6-35.5); Mean Corpuscular Hemoglobin 26.7 pg (28.0-33.3); Mean Corpuscular Volume 83.2 fL (83.0-100.0); Mean Platelet Volume 11.2 fL (9.4-12.4); Monocytes # 0.6 K/mcL (0.0-1.3); Monocytes % 8.6 %; Neutrophils # 4.4 K/mcL (1.6-8.9); Platelet Count 282 K/mcL (140-400); Red Blood Count 4.87 M/mcL (4.19-5.50); Red Cell Distribution Width 18.3 % (11.5-14.5)
[2017-01-19] MEDS: *HR* Enoxaparin 100 MG/ML SYRINGE SQ SCH (05:34)
[2017-01-19 05:47] LABS: BUN/Creatinine Ratio 26 (6-26); Blood Urea Nitrogen 24 mg/dL (8-26); Calcium 8.4 mg/dL (8.6-10.8); Carbon Dioxide 27 mEq/L (19-29); Chloride 106 mEq/L (98-109); Glucose 88 mg/dL (70-99); Osmolality,Calculated 297 (280-300); Potassium 3.4 mEq/L (3.5-4.5); Sodium 142 mEq/L (136-145); eGFR For African Americans > 60 (> 60); eGFR For Non-African Americans > 60 (> 60)
[2017-01-19] MEDS: Aspirin Enteric Coated 81 MG Tablet PO SCH (08:46)
[2017-01-19] MEDS: Furosemide 20 MG/2 ML VIAL IVP SCH ×2 (08:46→17:37)
[2017-01-19] MEDS: Spironolactone 25 MG TABLET PO SCH (08:46)
[2017-01-19] MEDS: Diltiazem CD (24hr) 120 MG CAPSULE PO SCH (08:46)
[2017-01-19] MEDS: Lisinopril 20 MG TABLET PO SCH (08:46)
--- NOTE | 2017-01-19 09:49 | Internal Med Progress Note ---
Date of Encounter: 01/19/17 Time of Encounter: 09:47 - Assessment and plan (1) Epistaxis Current Visit: Yes Status: Acute Assessment and plan: ENT consulted Hold Lovenox Continue ASA Monitor hemoglobin (2) Atrial fibrillation with rapid ventricular response Current Visit: Yes Status: Acute Assessment and plan: Newly diagnosed Afib with RVR, initial HR 140s. Edwin has been controlled on metoprolol and Cardizem Findings noted on left ventricular systolic dysfunction d/c Cardizem CHADSVASC 2 (HTN, CHF). Increase metoprolol po, due to epistaxis, add spironolactone. Cardiology input appreciated. (3) CHF (congestive heart failure) Current Visit: Yes Status: Acute Assessment and plan: Patient with evidence of fulid overload on admission-Crackles, Pulm edema on CXR , leg swelling ECHO 07/2016 LVEF of 60%, severe concentric LVH, moderate diastolic dysfunction. ECHO today with severe LV dysfunction, EF 35%, I/O negative -1365mL Continue Lasix IV 40bid Continue Strict I/O Daily weights Qualifiers: Congestive heart failure type: combined Congestive heart failure chronicity : acute Qualified Code(s): I50.41 - Acute combined systolic (congestive) and diastolic (congestive) heart failure (4) DVT prophylaxis Current Visit: Yes Status: Acute Assessment and plan: SCDs for now (5) Elevated troponin Current Visit: Yes Status: Acute Assessment and plan: Secondary to ischemia, downtrending now (6) Hypertension Current Visit: Yes Status: Chronic Assessment and plan: Controlled, continue meds Qualifiers: Hypertension type: essential hypertension Qualified Code(s): I10 - Essential (primary) hypertension - Subjective Interval history: Seen and examined at bedside reports improvement His leg edema is decreasing and his shortness of breath has improved He has nose bleed this morning, not responding to pressure/pinchmg the nose ENT has been consulted and Lovenox has been held Vital signs are stable. Echocardiogram revealed left ventricular ejection fraction 55%, severe left ventricular hypertrophy, moderate global hypokinesis, moderate to severe biatrial enlargement. Patient will be continued on metoprolol, with increasing doses, Cardizem was stopped, spironolactone will be added. - Constitutional Vitals: Temp Pulse Resp BP Pulse Ox 97.4 F L 85 16 175/97 96 01/19/17 08:17 01/19/17 08:17 01/19/17 08:17 01/19/17 08:17 01/19/17 08:17 General appearance: Present: A&O X 3, pleasant, no acute distress - Head Head exam: Present: atraumatic, normocephalic - Eye Eye exam: Present: PERRL, conjuntiva pink, sclera anicteric Pupils: Present: PERRL - ENT Additional comments: Dileep epistaxis from left nostril - Neck Neck exam general surgery: Present: supple, trachea midline. Absent: lymphadenopathy - Respiratory Respiratory exam: Present: CTAB. Absent: accessory muscle use, rales, rhonchi, wheezes - Cardiovascular Cardiovascular exam: Present: RRR, +S1, +S2. Absent: diastolic murmur, gallop, rubs, systolic murmur - GI/Abdominal GI/Abdominal exam: Present: normal bowel sounds, soft, no peritoneal signs. Absent: distended, tenderness - Extremities Exam Extremities exam: Present: pedal edema (trace), warm, radial pulses palpable and symetrical. Absent: calf tenderness, cyanotic - Neurological Exam Neurological exam: Present: CN II-XII intact, oriented X3, no focal deficits. Absent: pronater drift, facial droop, speech deficit - Skin Skin exam: Present: dry, intact Internal Medicine: Result - Labs CBC & Chem 7: 01/19/17 05:07 01/19/17 05:07 Labs: Short CBC 01/19/17 Range/Units 05:07 WBC 7.2 (4.3-11.1) K/mcL Hgb 13.0 (12.9-16.9) g/dL Hct 40.5 (37.5-50.1) % Plt Count 282 (140-400) K/mcL Neutrophils # 4.4 (1.6-8.9) K/mcL BMP 01/19/17 05:07 Sodium 142 Potassium 3.4 L Chloride 106 Carbon Dioxide 27 BUN 24 Creatinine 0.91 Glucose 88 Calcium 8.4 L - ABG Interpretation ABG results: PT/INR, D-dimer PT 15.7 Seconds (9.4-12.1) H 01/17/17 14:09 - VTE Documentation of Mechanical Device: Graduated compression elastic hosiery Consult Discharge Plan - Plan Referrals: Miriam Marinelli MD [Primary Care Provider] - (web request sent on )
[2017-01-19] MEDS ORDERED: *HR* Metoprolol 5 MG/5 ML VIAL IVP ONE ×2 (10:07→10:15)
--- NOTE | 2017-01-19 10:27 | Cardiology Progress Note ---
Date of Encounter: 01/19/17 Time of Encounter: 10:23 Assessment and Plan (1) Atrial fibrillation with rapid ventricular response Current Visit: Yes Status: Acute Patient with presumed new onset Afib with RVR, initial HR 140s. Reports previously drinking 80 fluid oz of pop/day. Reports stopped 2 weeks ago. On Lopressor 50mg BID as home med. Was transitioned to PO Cardizem CD 120mg daily yesterday. Echo resulted--EF declined 35%, severe concentic LVH, moderate global LV systolic dysfunction, mildly dilated and hypokinetic RV. Moderate-severe biatrial enlargement, mild MR. Tachycardia induced vs ischemic. Given low EF, will stop Cardizem. HR currently 120s at bedside. Will give dose of IV Lopressor 5mg and increase BB to Lopressor 100mg BID. Plan to transition to long acting Toprol XL once HR control is achieved. CHADSVASC 2 (HTN, CHF). Anticoagulation warranted. Currently on therapeutic Lovenox, but AM dose held due to epistaxis that started last night. ENT consulted.. Discussed Coumadin vs. NOACs. He prefers NOAC. Will [place] check, but AC on hold due to the epistaxis. Recommend sleep study as outpt for DANA evaluation. (2) CHF (congestive heart failure) Current Visit: Yes Status: Acute Patient presents with SOB and BLE edema, with 12 pound weight gain in the last 2 weeks. CHF could be secondary to A-Fib with RVR onset, but cannot rule out ischemic cause. Echo 07/2016 LVEF of 60%, severe concentric LVH, moderate diastolic dysfunction. Echo yesterday shows EF has declined to 35%, severe concentic LVH, moderate global LV systolic dysfunction, mildly dilated and hypokinetic RV. Moderate- severe biatrial enlargement, mild MR. CXR mild cardiomegaly, pulmonary edema, and probable small pleural effusions, compatible with CHF. BNP 1175. Agree with IV Lasix 40mg BID. Cumulative I/O negative -1880mL. Recommend Strict I/O, daily weights, Na and fluid restriction. Given new EF of 35%, recommend ischemic evaluation with LHC. R/B/A discussed. Pt declines today, but will consider during stay. Also having epistaxis, ENT consult placed. Once epistaxis resolves and if pt is agreeable, recommend LHC during stay. Qualifiers: Congestive heart failure type: combined Congestive heart failure chronicity : acute Qualified Code(s): I50.41 - Acute combined systolic (congestive) and diastolic (congestive) heart failure (3) Elevated troponin Current Visit: Yes Status: Acute Troponin 0.09, 0.10, 0.08--flat and adynamic in setting of A-Fib with RVR, rate 140s on presentation and with hypertensive urgency on admission--BP recorded as 188/153. Suspect demand ischemia, nondiagnostic for ACS. Pt denies chest pain. Echo shows reduced EF, recommend LHC during stay if pt agreeable and once epistaxis resolves. (4) Hypertension Current Visit: Yes Status: Chronic Not well controlled. Increasing BB for HR and BP control. Continue to monitor and adjust antihypertensives as necessary. Qualifiers: Hypertension type: essential hypertension Qualified Code(s): I10 - Essential (primary) hypertension (5) Cardiomyopathy Current Visit: Yes Status: Acute EF previously 60% 07/2016, now 35%--tachycardia induced vs. ischemic. Recommend LHC for further evaluation. Pt considering, declines today. Also with epistaxis. Possible LHC during stay. On BB, TERESA-I, Aldactone. Transition to long acting BB once HR control achieved. Qualifiers: Cardiomyopathy type: unspecified Qualified Code(s): I42.9 - Cardiomyopathy , unspecified (6) Epistaxis Current Visit: Yes Status: Acute Lovenox on hold. Will not start any anticoagulation until this resolves. Recheck H&H at noon. ENT consult placed. Discussion w patient/family: The assessment and plan as outlined above was discussed with the patient and/or family members who expressed understanding and agreement. All questions were answered. Thank you for involving us in the care of your patient. Please call with any questions. I will discuss all the above with Dr. Rick Ames and make changes as necessary. Subjective Principal diagnosis: A-Fib, CHF Interval history: Echo resulted--EF 35%, severe concentic LVH, moderate global LV systolic dysfunction, mildly dilated and hypokinetic RV. Moderate-severe biatrial enlargement, mild MR. 24 hour tele AVG HR 78, A-Fib, 5 beat run NSVT. Pt reports persistent epistaxis since last night. AM Lovenox held. Reports dyspnea and lower extremity edema have improved. Denies chest pain. Objective Vital Signs, Last 4 Hours Temp Pulse Resp BP Pulse Ox 01/19/17 08:17 97.4 F L 85 16 175/97 96 Vital Signs Temp Pulse Resp BP Pulse Ox 01/19/17 08:17 97.4 F L 85 16 175/97 96 01/19/17 04:35 97.4 F L 72 20 159/108 96 01/18/17 23:12 97.7 F 65 20 126/81 92 L 01/18/17 20:23 97.4 F L 80 20 164/93 95 01/18/17 15:22 97.8 F 81 16 152/93 98 01/18/17 11:02 98.2 F 65 16 101/59 94 L Intake and Output 01/18/17 01/19/17 01/19/17 23:59 07:59 15:59 Intake Total 360 / 360 240 / 240 Output Total 700 / 700 700 / 700 Balance -340 / -340 -700 / -700 240 / 240 Intake: Oral 360 / 360 240 / 240 Output: Urine 700 / 700 700 / 700 Other: Meal Dinner Breakfast Percent of Meal Consumed 100% 100% # Voids 1 Weight 90.356 kg Patient Weight 01/19/17 23:59 Weight 90.356 kg General: Conversant, No Apparent Distress HEENT: Atraumatic, Normocephaly, Mucus Membranes Moist Neck: Normal carotid pulses Cardiac: Other (irregularly irregular) Lungs: Other (diminished) Neuro: Alert and responsive, No focal deficits noted Abdomen: Soft, Non-Tender Skin: No rashes noted on visualized skin Musculoskeletal: No Chest Wall Tenderness Extremities: Other (mild BLE edema) Results 01/19/17 05:07 01/19/17 05:07 Lab Results 01/19/17 01/19/17 05:07 05:07 WBC 7.2 Hgb 13.0 Hct 40.5 Plt Count 282 Sodium 142 Potassium 3.4 L Chloride 106 Carbon Dioxide 27 BUN 24 Creatinine 0.91 Glucose 88 Calcium 8.4 L Short CBC 01/19/17 Range/Units 05:07 WBC 7.2 (4.3-11.1) K/mcL Hgb 13.0 (12.9-16.9) g/dL Hct 40.5 (37.5-50.1) % Plt Count 282 (140-400) K/mcL Neutrophils # 4.4 (1.6-8.9) K/mcL BMP 01/19/17 Range/Units 05:07 Sodium 142 (136-145) mEq/L Potassium 3.4 L (3.5-4.5) mEq/L Chloride 106 (98-109) mEq/L Carbon Dioxide 27 (19-29) mEq/L BUN 24 (8-26) mg/dL Creatinine 0.91 (0.72-1.25) mg/dL Glucose 88 (70-99) mg/dL Calcium 8.4 L (8.6-10.8) mg/dL Active Medications Aspirin (Aspirin Ec) 81 mg PO DAILY BENY Stop: 07/20/17 09:01 Last Admin: 01/19/17 08:46 Dose: Not Given Doxycycline Hyclate (Doxycycline) 100 mg PO Q48H BENY Stop: 07/20/17 09:01 Last Admin: 01/18/17 08:32 Dose: 100 mg Enoxaparin Sodium (Lovenox) 90 mg 1 mg/kg (90 mg) SQ Q12HR BENY PRN Reason: Protocol Stop: 07/20/17 06:01 Last Admin: 01/19/17 05:34 Dose: Not Given Furosemide (Lasix) 40 mg IVP BIDDIURETIC BENY Stop: 07/20/17 08:01 Last Admin: 01/19/17 08:46 Dose: 40 mg Lisinopril (Zestril) 20 mg PO DAILY BENY PRN Reason: Protocol Stop: 07/20/17 09:01 Last Admin: 01/19/17 08:46 Dose: 20 mg Metoprolol Tartrate (Lopressor) 100 mg PO BID [facility] Stop: 07/21/17 21:01 Metoprolol Tartrate (Lopressor) 5 mg IVP ONCE ONE Stop: 01/19/17 10:16 Naloxone HCl (Narcan) 0.4 mg IVP Q2MIN PRN PRN Reason: Opioid Reversal Stop: 07/19/17 16:40 Spironolactone (Aldactone) 25 mg PO DAILY [facility] Stop: 07/21/17 09:01 Last Admin: 01/19/17 08:46 Dose: 25 mg - Imaging and Cardiology Echo: report reviewed (EF 35%, severe concentic LVH, moderate global LV systolic dysfunction, mildly dilated and hypokinetic RV. Moderate-severe biatrial enlargement, mild MR.) - EKG Interpretation EKG results cardiology: other (24 hour tele AVG HR 78, A-Fib, 5 beat run NSVT.) - VTE Documentation of Mechanical Device: Graduated compression elastic hosiery Consult Discharge Plan - Plan Referrals: Miriam Marinelli MD [Primary Care Provider] - (web request sent on )
--- NOTE | 2017-01-19 11:57 | ENT - Consult Note ---
Date of Encounter: 01/19/17 Time of Encounter: 11:54 Assessment and Plan (1) Epistaxis Current Visit: Yes Status: Acute Left acute anterior nosebleed. Stopped with Cautery and Surgicel. Avoid nose blowing, picking or rubbing Saline sprays 4 times daily Afrin BID x 4 days and stop Will follow History of Present Illness Consult date: 01/19/17 Reason for ENT Consult: epistaxis Requesting physician: Felton Sanders History of present illness: 61 year old male with a fib and started on anticoagulatoin developed a left sided nosebleed this morning around 6 am. On and off left side only. brisk at first after sneezing and tapered down. Floor staff placed 7.5 cm rapid rhino partially in 1/2 hour prior to my arrival . no more bleeding. H/o nosebleeds in past and cauterized. Dry nose and uses saline sprays at home but non for the past 2 days. No nasal congestion, rhionrrhea, PND, trauma or nose picking. Needs anticoagulation for nosebleeds. Asked to see for acute nose bleed left side. Past Med Surg Social Fam HX - Past Medical History Medical history: arthritis, hypertension Psychiatric history: no psych history - Past Surgical History Surgical History: orthopedic, other (Left knee, right knee, left shoulder replacement, urethral stent) - Social History Smoking Status: Never smoker Smokeless Tobacco Status: No Alcohol use: rarely Drug use: none - Family History Mother Living Status: Age at : 86 Father Living Status: Age at : 86 Hx Family Cardiac Disorders: Yes Hx Family Endocrine Disorder: Yes (diabetes) Medications and Allergies Doxycycline Hyclate [Doxycycline Hyclate] 100 mg PO Q48H 01/17/17 [History] Lisinopril [Zestril] 20 mg PO DAILY 01/17/17 [History] Metoprolol [Lopressor] 50 mg PO BID 01/17/17 [History] Allergies Amoxicillin Allergy (Verified 01/17/17 16:26) Rash Milk Containing Products Allergy (Verified 01/17/17 16:26) Rash Penicillins [PCN] Allergy (Verified 07/26/15 14:43) Rash ENT - ROS All systems PM: reviewed and no additional remarkable complaints except as stated ENT Exam Initial Vital Signs Temp Pulse Resp BP Pulse Ox 97.6 F 131 16 188/153 96 01/17/17 13:50 01/17/17 13:50 01/17/17 13:50 01/17/17 13:50 01/17/17 13:50 Awake,alert WM in NAD Voice and speech clear No facial of neck asymmetry Left nasal rapid rhino partially in and no bleeding Auricles WNl,no skin lesions EAC clear and no wax or drainage TM's intact and no lesions or asymmetries No hemotympanum Nose right moderate crusting. No bleeding or clot and paritally crusting No nasal deformity / Packing removed and no bleeding Clot and fresh blood caudal septum Mild left SD and no pus or polyps OC/OP no lesions ro asymmetries 1+ tonsils No Bleeding or clot Neck supple,no LAD or neck masses No thyroid ro salivary gland lesions CN'sII-XII grossly intact Packing removed. Afrin and Lidocaine on cottonoid placed in nose for 10 minutes After removal caudal septum wtih slow bleeding and AGNO3 cauterization performed. Tolerated well Surgicel coated wtih Afrin placed over cauterized site Observed for 10 minutes and no bleeding OC/OP no PND or clots Exam Initial Vital Signs Temp Pulse Resp BP Pulse Ox 97.6 F 131 16 188/153 96 01/17/17 13:50 01/17/17 13:50 01/17/17 13:50 01/17/17 13:50 01/17/17 13:50 Results - Labs 01/19/17 05:07 01/19/17 05:07 Abnormal lab results MCH 26.7 pg (28.0-33.3) L 01/19/17 05:07 RDW 18.3 % (11.5-14.5) H 01/19/17 05:07 PT 15.7 Seconds (9.4-12.1) H 01/17/17 14:09 Potassium 3.4 mEq/L (3.5-4.5) L 01/19/17 05:07 Calcium 8.4 mg/dL (8.6-10.8) L 01/19/17 05:07 Total Bilirubin 1.8 mg/dL (0.2-1.2) H 01/17/17 14:09 AST 45 Units/L (5-34) H 01/17/17 14:09 Alkaline Phosphatase 264 Units/L (38-126) H 01/17/17 14:09 Troponin I 0.08 ng/mL (0-0.03) H* 01/18/17 04:01 B-Natriuretic Peptide 1175 pg/mL (0-100) H 01/17/17 14:09 Albumin 3.4 g/dL (3.5-5.0) L 01/17/17 14:09 Globulin 4.1 g/dL (2.4-3.5) H 01/17/17 14:09 Albumin/Globulin Ratio 0.8 (1.1-2.2) L 01/17/17 14:09 Diabetes panel 01/19/17 Range/Units 05:07 Sodium 142 (136-145) mEq/L Potassium 3.4 L (3.5-4.5) mEq/L Chloride 106 (98-109) mEq/L Carbon Dioxide 27 (19-29) mEq/L BUN 24 (8-26) mg/dL Creatinine 0.91 (0.72-1.25) mg/dL Glucose 88 (70-99) mg/dL Calcium 8.4 L (8.6-10.8) mg/dL Calcium panel 01/19/17 Range/Units 05:07 Calcium 8.4 L (8.6-10.8) mg/dL Pituitary panel 01/19/17 Range/Units 05:07 Sodium 142 (136-145) mEq/L Potassium 3.4 L (3.5-4.5) mEq/L Chloride 106 (98-109) mEq/L Carbon Dioxide 27 (19-29) mEq/L BUN 24 (8-26) mg/dL Creatinine 0.91 (0.72-1.25) mg/dL Glucose 88 (70-99) mg/dL Calcium 8.4 L (8.6-10.8) mg/dL Adrenal panel 01/19/17 Range/Units 05:07 Sodium 142 (136-145) mEq/L Potassium 3.4 L (3.5-4.5) mEq/L Chloride 106 (98-109) mEq/L Carbon Dioxide 27 (19-29) mEq/L BUN 24 (8-26) mg/dL Creatinine 0.91 (0.72-1.25) mg/dL Glucose 88 (70-99) mg/dL Calcium 8.4 L (8.6-10.8) mg/dL All other labs normal. Consult Discharge Plan - Plan Referrals: Miriam Marinelli MD [Primary Care Provider] - (web request sent on )
--- NOTE | 2017-01-19 12:05 | Electrocardiograph Report ---
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
[2017-01-19] MEDS: Saline Nasal Spray 44 ML BOTTLE NS SCH ×3 (13:28→20:04)
[2017-01-19 15:14] LABS: Basophils # 0.1 K/mcL (0.0-0.2); Basophils % 0.7 %; Eosinophils # 0.3 K/mcL (0.0-0.6); Hematocrit 41.7 % (37.5-50.1); Hemoglobin 13.4 g/dL (12.9-16.9); Immature Granulocytes % 0.6 % (0-4); Lymphocytes # 1.2 K/mcL (0.6-4.6); Lymphocytes % 12.2 %; Mean Corpuscular HGB Conc 32.1 g/dL (31.6-35.5); Mean Corpuscular Hemoglobin 26.4 pg (28.0-33.3); Mean Corpuscular Volume 82.2 fL (83.0-100.0); Mean Platelet Volume 10.9 fL (9.4-12.4); Monocytes # 0.9 K/mcL (0.0-1.3); Monocytes % 8.7 %; Neutrophils # 7.6 K/mcL (1.6-8.9); Platelet Count 342 K/mcL (140-400); Red Blood Count 5.07 M/mcL (4.19-5.50); Red Cell Distribution Width 17.9 % (11.5-14.5); Segmented Neutrophils % 74.8 %
--- NOTE | 2017-01-19 15:22 | Electrocardiograph Report ---
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
--- NOTE | 2017-01-19 15:39 | Event Note ---
Date of Encounter: 01/19/17 Time of Encounter: 15:38 - Cardiology Event Note HR currently 60s. ENT saw pt--left acute anterior nosebleed. Stopped with Cautery and Surgicel. Start Xarelto tonight. Sal[place] checked--$25/month, which pt reports is affordable. At this time, declines [facility]. Rate control and anticoagulate. Can re-check echo in 3 months as outpt to re-evaluate EF once rate controlled. Continue to follow. Re-evaluate in AM.
[2017-01-19] MEDS ORDERED: *HR* Rivaroxaban 10 MG TABLET PO SCH (17:00)
[2017-01-19] MEDS: Oxymetazoline Nasal SPRAY BOTTLE NS SCH (17:38)
--- NOTE | 2017-01-20 04:04 | ENT - Progress Note ---
Date of Encounter: 01/20/17 Time of Encounter: 03:58 - Assessment and Plan (1) Epistaxis Current Visit: Yes Status: Acute Left acute anterior nosebleed. Stopped with Cautery and Surgicel. Avoid nose blowing, picking or rubbing Saline sprays 4 times daily Afrin BID x 4 days and stop Will follow 01/20 Surgicel fibrillar packing and appears anterior. Will see how he does and then plan on formal packing if he rebleeds at this time. Patient agrees with plan. Subjective Narrative: Called by Hospitalist that patient has been bleeding from the left side of the nose for two hours. Pinching and attempt at rhinorocket did not help. On and off bleeding. None from right. no trauma. Had nose cauterized this am by me. Objective Initial Vital Signs Temp Pulse Resp BP Pulse Ox 97.6 F 131 16 188/153 96 01/17/17 13:50 01/17/17 13:50 01/17/17 13:50 01/17/17 13:50 01/17/17 13:50 Awake, alert, in NAD Oozing from left nostril OC/OP clot and scant slow drip of blood Left nare large clot and removed. Afrin/4% lidocaine placed cotton ball left nostril x 2 for 10 minutes Posterior nose appeared clear and bleeding from caudal to mid septum and slow ooze Packed with afrin coated Surgicel Fibrillar on the left. Observed for 10 minutes and stopped OC/Op Dry and no clot or bleeding noted. - Labs 01/19/17 15:03 01/19/17 05:07 Diabetes panel 01/19/17 Range/Units 05:07 Sodium 142 (136-145) mEq/L Potassium 3.4 L (3.5-4.5) mEq/L Chloride 106 (98-109) mEq/L Carbon Dioxide 27 (19-29) mEq/L BUN 24 (8-26) mg/dL Creatinine 0.91 (0.72-1.25) mg/dL Glucose 88 (70-99) mg/dL Calcium 8.4 L (8.6-10.8) mg/dL Calcium panel 01/19/17 Range/Units 05:07 Calcium 8.4 L (8.6-10.8) mg/dL Pituitary panel 01/19/17 Range/Units 05:07 Sodium 142 (136-145) mEq/L Potassium 3.4 L (3.5-4.5) mEq/L Chloride 106 (98-109) mEq/L Carbon Dioxide 27 (19-29) mEq/L BUN 24 (8-26) mg/dL Creatinine 0.91 (0.72-1.25) mg/dL Glucose 88 (70-99) mg/dL Calcium 8.4 L (8.6-10.8) mg/dL Adrenal panel 01/19/17 Range/Units 05:07 Sodium 142 (136-145) mEq/L Potassium 3.4 L (3.5-4.5) mEq/L Chloride 106 (98-109) mEq/L Carbon Dioxide 27 (19-29) mEq/L BUN 24 (8-26) mg/dL Creatinine 0.91 (0.72-1.25) mg/dL Glucose 88 (70-99) mg/dL Calcium 8.4 L (8.6-10.8) mg/dL - VTE Documentation of Mechanical Device: Graduated compression elastic hosiery Consult Discharge Plan - Plan Referrals: Miriam Marinelli MD [Primary Care Provider] - (web request sent on )
[2017-01-20 06:45] LABS: Basophils # 0.1 K/mcL (0.0-0.2); Basophils % 0.7 %; Eosinophils # 0.3 K/mcL (0.0-0.6); Hematocrit 38.3 % (37.5-50.1); Hemoglobin 12.2 g/dL (12.9-16.9); Immature Granulocytes % 0.6 % (0-4); Lymphocytes # 1.2 K/mcL (0.6-4.6); Lymphocytes % 14.4 %; Mean Corpuscular HGB Conc 31.9 g/dL (31.6-35.5); Mean Corpuscular Hemoglobin 26.9 pg (28.0-33.3); Mean Corpuscular Volume 84.5 fL (83.0-100.0); Mean Platelet Volume 11.6 fL (9.4-12.4); Monocytes # 0.9 K/mcL (0.0-1.3); Monocytes % 10.3 %; Platelet Count 298 K/mcL (140-400); Red Blood Count 4.53 M/mcL (4.19-5.50); Red Cell Distribution Width 17.7 % (11.5-14.5)
[2017-01-20 07:01] LABS: BUN/Creatinine Ratio 23 (6-26); Blood Urea Nitrogen 20 mg/dL (8-26); Calcium 8.7 mg/dL (8.6-10.8); Carbon Dioxide 26 mEq/L (19-29); Chloride 105 mEq/L (98-109); Glucose 93 mg/dL (70-99); Osmolality,Calculated 294 (280-300); Potassium 3.5 mEq/L (3.5-4.5); Sodium 141 mEq/L (136-145); eGFR For African Americans > 60 (> 60); eGFR For Non-African Americans > 60 (> 60)
[2017-01-20] MEDS: Oxymetazoline Nasal SPRAY BOTTLE NS SCH ×2 (07:34→17:12)
--- NOTE | 2017-01-20 07:48 | ENT - Progress Note ---
Date of Encounter: 01/20/17 Time of Encounter: 07:46 - Assessment and Plan (1) Epistaxis Current Visit: Yes Status: Acute Left acute anterior nosebleed. Stopped with Cautery and Surgicel. Avoid nose blowing, picking or rubbing Saline sprays 4 times daily Afrin BID x 4 days and stop Will follow 01/20 Surgicel fibrillar packing and appears anterior. Will see how he does and then plan on formal packing if he rebleeds at this time. Patient agrees with plan. 01/20/17 745am No current bleeding. Continue with saline sprays at this time. Subjective Narrative: No complaints. Resting comfortably. Denies further bleeding anteriorly or clots in the back of the throat. Objective Initial Vital Signs Temp Pulse Resp BP Pulse Ox 97.6 F 131 16 188/153 96 01/17/17 13:50 01/17/17 13:50 01/17/17 13:50 01/17/17 13:50 01/17/17 13:[address] left nares. no bleeding or dried blood. Right side with dry crusting but no bleeding or clot OC/OP dry mucosa and no bleeding or clots seen - Labs 01/20/17 05:53 01/20/17 05:53 Diabetes panel 01/20/17 Range/Units 05:53 Sodium 141 (136-145) mEq/L Potassium 3.5 (3.5-4.5) mEq/L Chloride 105 (98-109) mEq/L Carbon Dioxide 26 (19-29) mEq/L BUN 20 (8-26) mg/dL Creatinine 0.87 (0.72-1.25) mg/dL Glucose 93 (70-99) mg/dL Calcium 8.7 (8.6-10.8) mg/dL Calcium panel 01/20/17 Range/Units 05:53 Calcium 8.7 (8.6-10.8) mg/dL Pituitary panel 01/20/17 Range/Units 05:53 Sodium 141 (136-145) mEq/L Potassium 3.5 (3.5-4.5) mEq/L Chloride 105 (98-109) mEq/L Carbon Dioxide 26 (19-29) mEq/L BUN 20 (8-26) mg/dL Creatinine 0.87 (0.72-1.25) mg/dL Glucose 93 (70-99) mg/dL Calcium 8.7 (8.6-10.8) mg/dL Adrenal panel 01/20/17 Range/Units 05:53 Sodium 141 (136-145) mEq/L Potassium 3.5 (3.5-4.5) mEq/L Chloride 105 (98-109) mEq/L Carbon Dioxide 26 (19-29) mEq/L BUN 20 (8-26) mg/dL Creatinine 0.87 (0.72-1.25) mg/dL Glucose 93 (70-99) mg/dL Calcium 8.7 (8.6-10.8) mg/dL - VTE Documentation of Mechanical Device: Graduated compression elastic hosiery Consult Discharge Plan - Plan Referrals: Miriam Marinelli MD [Primary Care Provider] - (web request sent on )
[2017-01-20] MEDS: Aspirin Enteric Coated 81 MG Tablet PO SCH (08:14)
--- NOTE | 2017-01-20 08:22 | Internal Med Progress Note ---
Date of Encounter: 01/20/17 Time of Encounter: 08:00 - Assessment and plan (1) Epistaxis Current Visit: Yes Status: Acute Assessment and plan: ENT consulted, appreciate input s/p cauterization, no bleeds this a.m, last bleeds ~3a.m Will observe one more day Continue ASA, Eliquis Monitor hemoglobin (2) Atrial fibrillation with rapid ventricular response Current Visit: Yes Status: Acute Assessment and plan: Newly diagnosed Afib with RVR, initial HR 140s. Possibly chronic Afib HR controlled on current medications, Toprol, continue same CHADSVASC 2 (HTN, CHF). Continue Eliquis (3) CHF (congestive heart failure) Current Visit: Yes Status: Acute Assessment and plan: Patient with evidence of fulid overload on admission-Crackles, Pulm edema on CXR , leg swelling ECHO 07/2016 LVEF of 60%, severe concentric LVH, moderate diastolic dysfunction. ECHO this admission with severe LV dysfunction, EF 35%, I/O negative -1880 mL Continue Lasix IV 40bid Continue Strict I/O Daily weights Added spironolactone, continue same Continue Lisinopril Qualifiers: Congestive heart failure type: combined Congestive heart failure chronicity : acute Qualified Code(s): I50.41 - Acute combined systolic (congestive) and diastolic (congestive) heart failure (4) DVT prophylaxis Current Visit: Yes Status: Acute Assessment and plan: On Eliquis (5) Elevated troponin Current Visit: Yes Status: Acute Assessment and plan: Secondary to ischemia, downtrending now (6) Hypertension Current Visit: Yes Status: Chronic Assessment and plan: Uncontrolled this a.m, but toprol was just increased to 100mg po daily Controlled, continue meds Qualifiers: Hypertension type: essential hypertension Qualified Code(s): I10 - Essential (primary) hypertension - Subjective Interval history: Seen and examined at bedside Patient with Afib with RVR, CHFrEF exacerbation, epistaxis on anticoagulation, He is seen sleeping soundly at bedside He denies new complains SOB and leg edema ihas significantly improved He had one more episode of prolonged left anterior nasal bleed overnight, ENT on board, s/p cauterization Vital signs are stable. Echocardiogram revealed left ventricular ejection fraction 55%, severe left ventricular hypertrophy, moderate global hypokinesis, moderate to severe biatrial enlargement. - Constitutional Vitals: Temp Pulse Resp BP Pulse Ox 97.4 F L 87 18 157/97 97 01/20/17 07:40 01/20/17 07:40 01/20/17 07:40 01/20/17 07:40 01/20/17 07:40 General appearance: Present: A&O X 3, pleasant, no acute distress, answers questions appropriately - Head Head exam: Present: atraumatic, normocephalic - Eye Eye exam: Present: PERRL, conjuntiva pink, sclera anicteric Pupils: Present: PERRL - Neck Neck exam general surgery: Present: supple, trachea midline. Absent: lymphadenopathy - Respiratory Respiratory exam: Present: CTAB. Absent: accessory muscle use, rales, rhonchi, wheezes - Cardiovascular Cardiovascular exam: Present: RRR, +S1, +S2. Absent: diastolic murmur, gallop, rubs, systolic murmur - GI/Abdominal GI/Abdominal exam: Present: normal bowel sounds, soft, no peritoneal signs. Absent: distended, tenderness - Extremities Exam Extremities exam: Present: warm, radial pulses palpable and symetrical. Absent : calf tenderness, cyanotic, pedal edema - Neurological Exam Neurological exam: Present: CN II-XII intact, oriented X3, no focal deficits. Absent: pronater drift, facial droop, speech deficit - Skin Skin exam: Present: dry, intact Internal Medicine: Result - Labs CBC & Chem 7: 01/20/17 05:53 01/20/17 05:53 Labs: Short CBC 01/19/17 01/20/17 Range/Units 15:03 05:53 WBC 10.2 8.5 (4.3-11.1) K/mcL Hgb 13.4 12.2 L (12.9-16.9) g/dL Hct 41.7 38.3 (37.5-50.1) % Plt Count 342 298 (140-400) K/mcL Neutrophils # 7.6 6.0 (1.6-8.9) K/mcL BMP 01/20/17 05:53 Sodium 141 Potassium 3.5 Chloride 105 Carbon Dioxide 26 BUN 20 Creatinine 0.87 Glucose 93 Calcium 8.7 - ABG Interpretation ABG results: PT/INR, D-dimer PT 15.7 Seconds (9.4-12.1) H 01/17/17 14:09 - VTE Documentation of Mechanical Device: Graduated compression elastic hosiery Consult Discharge Plan - Plan Referrals: Miriam Marinelli MD [Primary Care Provider] - (web request sent on )
[2017-01-20] MEDS: Lisinopril 20 MG TABLET PO SCH (08:23)
[2017-01-20] MEDS: Doxycycline 100 MG CAPSULE PO SCH (08:24)
[2017-01-20] MEDS: Furosemide 20 MG/2 ML VIAL IVP SCH ×2 (08:24→17:50)
[2017-01-20] MEDS: Saline Nasal Spray 44 ML BOTTLE NS SCH ×4 (08:24→20:21)
[2017-01-20] MEDS: Spironolactone 25 MG TABLET PO SCH (08:24)
[2017-01-20] MEDS ORDERED: Metoprolol XL (24 HR) Succ 50 MG TAB.ER.24H PO SCH (09:00)
[2017-01-20] MEDS ORDERED: Metoprolol XL (24 HR) Succ 50 MG TAB.ER.24H PO ONE (10:00)
--- NOTE | 2017-01-20 10:04 | Cardiology Progress Note ---
Date of Encounter: 01/20/17 Time of Encounter: 10:02 Assessment and Plan (1) Atrial fibrillation with rapid ventricular response Current Visit: Yes Status: Acute Patient with presumed new onset Afib with RVR, initial HR 140s. Reports previously drinking 80 fluid oz of pop/day. Reports stopped 2 weeks ago. Echo resulted--EF declined 35%, severe concentic LVH, moderate global LV systolic dysfunction, mildly dilated and hypokinetic RV. Moderate-severe biatrial enlargement, mild MR. Tachycardia induced vs ischemic. Given low EF, recommend BB for rate control. Received 100mg Lopressor BID yesterday with adequate HR control. Cardizem stopped yesterday. 24 hour tele AVG HR 76, A-Fib, 3 beat run NSVT. Will transition to 200mg daily of Toprol XL. CHADSVASC 2 (HTN, CHF). Anticoagulation warranted, prefers NOAC. Xarelto [place] checked and started last night. $25/month. Had epistaxis on Lovenox, s/p cautery yesterday with ENT following. Had recurrent epistaxis overnight, packed. Discussed with ENT--Hold Xarelto for 5 days. Will need to monitor for recurrent bleeding on Xarelto after resumed. Recommend sleep study as outpt for DANA evaluation. Cardiology signing off. Reconsult PRN. Follow-up as outpt in 2 weeks--will coordinate. (2) CHF (congestive heart failure) Current Visit: Yes Status: Acute Patient presents with SOB and BLE edema, with 12 pound weight gain in the last 2 weeks. CHF could be secondary to A-Fib with RVR onset, but cannot rule out ischemic cause. EF previously 60% has declined to 35%, severe concentic LVH, moderate global LV systolic dysfunction, mildly dilated and hypokinetic RV. Moderate-severe biatrial enlargement, mild MR. CXR mild cardiomegaly, pulmonary edema, and probable small pleural effusions, compatible with CHF. BNP 1175. Agree with IV Lasix 40mg BID. Cumulative I/O negative -1880mL. Recommend Strict I/O, daily weights, Na and fluid restriction. Given new EF of 35%, recommend ischemic evaluation with C. R/B/A discussed. Pt declines at this time. Denies chest pain. Recommend echo to re-evaluate EF as outpt now that HR is controlled. If EF remains low, will recommend LHC as outpt. Recommend transitioning to PO maintenance dose of Lasix at discharge. Qualifiers: Congestive heart failure type: combined Congestive heart failure chronicity : acute Qualified Code(s): I50.41 - Acute combined systolic (congestive) and diastolic (congestive) heart failure (3) Elevated troponin Current Visit: Yes Status: Acute Troponin 0.09, 0.10, 0.08--flat and adynamic in setting of A-Fib with RVR, rate 140s on presentation and with hypertensive urgency on admission--BP recorded as 188/153. Suspect demand ischemia, nondiagnostic for ACS. Pt denies chest pain. Echo shows reduced EF 35%. Recommended LHC. R/B/A discussed. Pt declines at this time. (4) Hypertension Current Visit: Yes Status: Chronic Not at goal. Increasing BB for HR and BP control. Continue to monitor and adjust antihypertensives as necessary. Qualifiers: Hypertension type: essential hypertension Qualified Code(s): I10 - Essential (primary) hypertension (5) Cardiomyopathy Current Visit: Yes Status: Acute EF previously 60% 07/2016, now 35%--tachycardia induced vs. ischemic. Recommend LHC for further evaluation. R/B/A discussed. Pt declines. Also with epistaxis-- ENT recommends holding anticoagulation for 3-5 days. On BB, TERESA-I, Aldactone. Recheck EF as outpt and if remains low despite rate control, then will recommend LHC at that time. Qualifiers: Cardiomyopathy type: unspecified Qualified Code(s): I42.9 - Cardiomyopathy , unspecified Discussion w patient/family: The assessment and plan as outlined above was discussed with the patient and/or family members who expressed understanding and agreement. All questions were answered. Thank you for involving us in the care of your patient. Please call with any questions. I will discuss all the above with Dr. Rick Ames and make changes as necessary. Subjective Principal diagnosis: A-Fib, CHF Interval history: Echo--EF 35%, severe concentic LVH, moderate global LV systolic dysfunction, mildly dilated and hypokinetic RV. Moderate-severe biatrial enlargement, mild MR. 24 hour tele AVG HR 76, A-Fib, 3 beat run NSVT. Seen by ENT yesterday s/p cauterization for epistaxis. Had recurrent nose bleed overnight, seen by ENT again, packed. No active bleeding. Objective Vital Signs, Last 4 Hours Temp Pulse Resp BP Pulse Ox 01/20/17 07:40 97.4 F L 87 18 157/97 97 Vital Signs Temp Pulse Resp BP Pulse Ox 01/20/17 07:40 97.4 F L 87 18 157/97 97 01/20/17 04:00 98.2 F 70 16 170/111 98 01/19/17 23:49 98.2 F 64 17 143/103 95 01/19/17 20:32 97.9 F 77 16 138/89 95 01/19/17 16:16 97.9 F 72 16 157/99 96 01/19/17 10:37 97.7 F 81 18 170/119 92 L Intake and Output 01/19/17 01/20/17 01/20/17 23:59 07:59 15:59 Intake Total 0 / 0 Balance 0 / 0 Intake: Oral 0 / 0 Other: Meal npo Weight 89.7 kg Patient Weight 01/20/17 23:59 Weight 89.7 kg General: Conversant, No Apparent Distress HEENT: Atraumatic, Normocephaly, Mucus Membranes Moist Neck: No JVD, Normal carotid pulses Cardiac: Other (irregularly irregular) Lungs: Other (diminished) Neuro: Alert and responsive, No focal deficits noted Abdomen: Soft, Non-Tender Skin: No rashes noted on visualized skin Musculoskeletal: No Chest Wall Tenderness Extremities: Other (mild BLE edema) Results 01/20/17 05:53 01/20/17 05:53 Lab Results 01/19/17 01/20/17 01/20/17 15:03 05:53 05:53 WBC 10.2 8.5 Hgb 13.4 12.2 L Hct 41.7 38.3 Plt Count 342 298 Sodium 141 Potassium 3.5 Chloride 105 Carbon Dioxide 26 BUN 20 Creatinine 0.87 Glucose 93 Calcium 8.7 Short CBC 01/20/17 01/19/17 Range/Units 05:53 15:03 WBC 8.5 10.2 (4.3-11.1) K/mcL Hgb 12.2 L 13.4 (12.9-16.9) g/dL Hct 38.3 41.7 (37.5-50.1) % Plt Count 298 342 (140-400) K/mcL Neutrophils # 6.0 7.6 (1.6-8.9) K/mcL BMP 01/20/17 Range/Units 05:53 Sodium 141 (136-145) mEq/L Potassium 3.5 (3.5-4.5) mEq/L Chloride 105 (98-109) mEq/L Carbon Dioxide 26 (19-29) mEq/L BUN 20 (8-26) mg/dL Creatinine 0.87 (0.72-1.25) mg/dL Glucose 93 (70-99) mg/dL Calcium 8.7 (8.6-10.8) mg/dL Active Medications Aspirin (Aspirin Ec) 81 mg PO DAILY BENY Stop: 07/20/17 09:01 Last Admin: 01/20/17 08:14 Dose: Not Given Doxycycline Hyclate (Doxycycline) 100 mg PO Q48H BENY Stop: 07/20/17 09:01 Last Admin: 01/20/17 08:24 Dose: 100 mg Furosemide (Lasix) 40 mg IVP BIDDIURETIC BENY Stop: 07/20/17 08:01 Last Admin: 01/20/17 08:24 Dose: 40 mg Lisinopril (Zestril) 20 mg PO DAILY BENY PRN Reason: Protocol Stop: 07/20/17 09:01 Last Admin: 01/20/17 08:23 Dose: 20 mg Metoprolol Succinate (Toprol Xl) 200 mg PO DAILY BENY Stop: 07/23/17 09:01 Naloxone HCl (Narcan) 0.4 mg IVP Q2MIN PRN PRN Reason: Opioid Reversal Stop: 07/19/17 16:40 Oxymetazoline HCl (Afrin) 2 spray NS Q12HR BENY Stop: 01/23/17 06:01 Last Admin: 01/20/17 07:34 Dose: Not Given Rivaroxaban (Xarelto) 20 mg PO 1700 BENY Stop: 07/21/17 17:01 Last Admin: 01/19/17 17:38 Dose: Not Given Sodium Chloride (Pinal Nasal Lehr) 2 spray NS QID BENY Stop: 07/21/17 13:01 Last Admin: 01/20/17 08:24 Dose: 2 spray Spironolactone (Aldactone) 25 mg PO DAILY BENY Stop: 07/21/17 09:01 Last Admin: 01/20/17 08:24 Dose: 25 mg - Imaging and Cardiology Echo: report reviewed - EKG Interpretation EKG results cardiology: other (24 hour tele AVG HR 76, A-Fib, 3 beat run NSVT noted) - VTE Documentation of Mechanical Device: Graduated compression elastic hosiery Consult Discharge Plan - Plan Referrals: Miriam Marinelli MD [Primary Care Provider] - (web request sent on )
--- NOTE | 2017-01-20 15:44 | Electrocardiograph Report ---
[place] [id number] Test Date: 2017-01-19 Pat Name: Perfecto Munguia Department: 112 Room: 2A26 Gender: M Group Cio: : 1955 Requested By: Felton Sanders Order Number: [id number] Reading MD: Ирина Ames Measurements Intervals [place] Rate: 94 P: SC: 0 QRS: -8 QRSD: 98 T: -32 QT: 390 QTc: 442 Interpretive Statements ATRIAL FIBRILLATION WITH ABERRANT CONDUCTION OR VENTRICULAR PREMATURE COMPLEXES MINIMAL VOLTAGE CRITERIA FOR LVH, CONSIDER NORMAL VARIANT NONSPECIFIC ST \T\ T-WAVE ABNORMALITY ABNORMAL RHYTHM ECG V3 unsuitable for interpretation Electronically Signed On 01-20-2017 15:42:51 EDT by Ирина Ames
[2017-01-21] MEDS: Oxymetazoline Nasal SPRAY BOTTLE NS SCH (05:10)
[2017-01-21 06:50] LABS: Basophils # 0.1 K/mcL (0.0-0.2); Eosinophils # 0.3 K/mcL (0.0-0.6); Eosinophils % 2.9 %; Hematocrit 46.9 % (37.5-50.1); Immature Granulocytes % 0.5 % (0-4); Lymphocytes # 1.4 K/mcL (0.6-4.6); Lymphocytes % 15.4 %; Mean Corpuscular HGB Conc 31.8 g/dL (31.6-35.5); Mean Corpuscular Volume 81.8 fL (83.0-100.0); Monocytes # 0.8 K/mcL (0.0-1.3); Monocytes % 9.1 %; Neutrophils # 6.5 K/mcL (1.6-8.9); Platelet Count 374 K/mcL (140-400); Red Blood Count 5.73 M/mcL (4.19-5.50); Red Cell Distribution Width 18.2 % (11.5-14.5); Segmented Neutrophils % 71.1 %
[2017-01-21 06:56] LABS: Hemoglobin 14.9 g/dL (12.9-16.9)
[2017-01-21 07:03] LABS: BUN/Creatinine Ratio 21 (6-26); Blood Urea Nitrogen 19 mg/dL (8-26); Calcium 9.3 mg/dL (8.6-10.8); Carbon Dioxide 24 mEq/L (19-29); Chloride 103 mEq/L (98-109); Glucose 136 mg/dL (70-99); Osmolality,Calculated 292 (280-300); Potassium 3.7 mEq/L (3.5-4.5); Sodium 139 mEq/L (136-145); eGFR For African Americans > 60 (> 60); eGFR For Non-African Americans > 60 (> 60)
--- NOTE | 2017-01-21 07:59 | ENT - Progress Note ---
Date of Encounter: 01/21/17 Time of Encounter: 07:57 - Assessment and Plan (1) Epistaxis Current Visit: Yes Status: Acute Left acute anterior nosebleed. Stopped with Cautery and Surgicel. Avoid nose blowing, picking or rubbing Saline sprays 4 times daily Afrin BID x 4 days and stop Will follow 01/20 Surgicel fibrillar packing and appears anterior. Will see how he does and then plan on formal packing if he rebleeds at this time. Patient agrees with plan. 01/20/17 745am No current bleeding. Continue with saline sprays at this time. 01/21/17 No further bleeding. Anterior bleeding secondary to nasal dryness, anticoagulation, and HTN Packing will slowly dissolve. Continue saline sprays 4 times daily and use afrin nasal decongestant spray BID for three days and then stop the Afrin. F/u with ENT in 2 weeks. Subjective Patient reports: feels better Narrative: Mr. Munguia reports some mucous, clear from left nostril but no further bleeding for the past 28 hours. No oral bleeding or clots. Feeling better and anxious to go home. Objective Initial Vital Signs Temp Pulse Resp BP Pulse Ox 97.6 F 131 16 188/153 96 01/17/17 13:50 01/17/17 13:50 01/17/17 13:50 01/17/17 13:50 01/17/17 13:50 Awake, alert, in NAD Right nose with mild crusting. no bleeding or clots Left with fibrillar packing in place and clear rhinorrhea. NO bleeding or clot OC/OP dry, no bleeding or clots - Labs 01/21/17 06:12 01/21/17 06:12 Diabetes panel 01/21/17 Range/Units 06:12 Sodium 139 (136-145) mEq/L Potassium 3.7 (3.5-4.5) mEq/L Chloride 103 (98-109) mEq/L Carbon Dioxide 24 (19-29) mEq/L BUN 19 (8-26) mg/dL Creatinine 0.92 (0.72-1.25) mg/dL Glucose 136 H (70-99) mg/dL Calcium 9.3 (8.6-10.8) mg/dL Calcium panel 01/21/17 Range/Units 06:12 Calcium 9.3 (8.6-10.8) mg/dL Pituitary panel 01/21/17 Range/Units 06:12 Sodium 139 (136-145) mEq/L Potassium 3.7 (3.5-4.5) mEq/L Chloride 103 (98-109) mEq/L Carbon Dioxide 24 (19-29) mEq/L BUN 19 (8-26) mg/dL Creatinine 0.92 (0.72-1.25) mg/dL Glucose 136 H (70-99) mg/dL Calcium 9.3 (8.6-10.8) mg/dL Adrenal panel 01/21/17 Range/Units 06:12 Sodium 139 (136-145) mEq/L Potassium 3.7 (3.5-4.5) mEq/L Chloride 103 (98-109) mEq/L Carbon Dioxide 24 (19-29) mEq/L BUN 19 (8-26) mg/dL Creatinine 0.92 (0.72-1.25) mg/dL Glucose 136 H (70-99) mg/dL Calcium 9.3 (8.6-10.8) mg/dL - VTE Documentation of Mechanical Device: Graduated compression elastic hosiery Consult Discharge Plan - Plan Additional Instructions: Instructed to avoid nose blowing, nose picking or rubbing for the next two weeks. Use nasal saline sprays 2-3 sprays at least 4 times daily. Afrin nasal decongestant spray 2 sprays to each nostril twice a day for 3 days and then stop the afrin. Cool mist humidifier at night stand can help increase moisturization in the nose. F/u with ENT in 2 weeks to recheck the nose in hopes of starting Xarelto. Referrals: Miriam Marinelli MD [Primary Care Provider] - (web request sent on )
[2017-01-21] MEDS: Lisinopril 20 MG TABLET PO SCH (08:14)
[2017-01-21] MEDS: Aspirin Enteric Coated 81 MG Tablet PO SCH (08:14)
[2017-01-21] MEDS: Spironolactone 25 MG TABLET PO SCH (08:14)
[2017-01-21] MEDS: Furosemide 20 MG/2 ML VIAL IVP SCH (08:14)
[2017-01-21] MEDS: Saline Nasal Spray 44 ML BOTTLE NS SCH ×2 (08:14→12:53)
--- NOTE | 2017-01-21 08:45 | Discharge Summary ---
Date of Encounter: 01/21/17 Time of Encounter: 08:44 - Discharge Diagnosis (1) Epistaxis Priority: Primary Status: Resolved (2) Atrial fibrillation with rapid ventricular response Priority: Primary Status: Resolved (3) CHF (congestive heart failure) Priority: Secondary Status: Acute Qualifiers: Congestive heart failure type: combined Congestive heart failure chronicity : acute Qualified Code(s): I50.41 - Acute combined systolic (congestive) and diastolic (congestive) heart failure (4) DVT prophylaxis Priority: Secondary Status: Acute (5) Elevated troponin Priority: Primary Status: Resolved (6) Hypertension Priority: Secondary Status: Chronic Qualifiers: Hypertension type: essential hypertension Qualified Code(s): I10 - Essential (primary) hypertension - Discharge Medications Prescriptions: Oxymetazoline [Afrin] 2 spray NS Q12HR #1 bottle Amlodipine [Norvasc] 5 mg PO DAILY #30 tablet Aspirin Enteric Coated [Aspirin EC] 81 mg PO DAILY #30 tablet. Furosemide [Lasix] 40 mg PO BID #60 tablet Metoprolol XL (24 HR) Succ [Toprol Xl] 200 mg PO DAILY #60 tab.er.24h Rivaroxaban [Xarelto] 20 mg PO QPM #30 tablet Spironolactone [Aldactone] 25 mg PO DAILY #30 tablet Home Medications: Lisinopril [Zestril] 20 mg PO DAILY 01/17/17 [History] Amlodipine [Norvasc] 5 mg PO DAILY #30 tablet 01/21/17 [Rx] Aspirin Enteric Coated [Aspirin EC] 81 mg PO DAILY #30 tablet. 01/21/17 [Rx] Furosemide [Lasix] 40 mg PO BID #60 tablet 01/21/17 [Rx] Metoprolol XL (24 HR) Succ [Toprol Xl] 200 mg PO DAILY #60 tab.er.24h 01/21/17 [ Rx] Oxymetazoline [Afrin] 2 spray NS Q12HR #1 bottle 01/21/17 [Rx] Rivaroxaban [Xarelto] 20 mg PO QPM #30 tablet 01/21/17 [Rx] Spironolactone [Aldactone] 25 mg PO DAILY #30 tablet 01/21/17 [Rx] Allergies/Adverse Reactions: Allergies Amoxicillin Allergy (Verified 01/17/17 16:26) Rash Milk Containing Products Allergy (Verified 01/17/17 16:26) Rash Penicillins [PCN] Allergy (Verified 07/26/15 14:43) Rash Procedures/tests Complete & Pending: Procedures Performed prior 72 hours Category Date Time Status ECG 12 lead ECG [ECG] Routine Y 01/19/17 09:27 Completed EV echocardiogram Routine Y 01/18/17 09:27 Completed Date of admission: 01/17/17 16:39 Primary care physician: Miriam Marinelli Consults: 01/17/17 18:00 Consult to Nutrition [CONS] Routine Comment: fluctuations in weight Consulting Provider: NUTRITION Reason for Dietary Consult: Other 01/17/17 18:43 Consult to Cardiology [CONS] Routine Comment: Consulting Provider: Cardiology [place] Reason for Consult: new onset Afib RVR, new CHF Call Completed: Yes 01/19/17 09:57 Consult to ENT [CONS] Stat Consulting Provider: [facility] [place] Reason for Consult: Epistaxis Call Completed: Yes Discharging clinician: Felton Sanders Anticipated date of discharge: 01/21/17 - Patient Status Disposition: Home, Self-Care Condition: Good Functional capacity at discharge: independent ambulation Overall status at discharge: patient is back to baseline - Discharge Instructions Follow Up With: Ирина Ames MD [Partnered Physician] - (Cardiology office will call patient at home to schedule appointment.) Miriam Marinelli MD [Primary Care Provider] - 01/26/17 11:15 am () Dior Finch DO [Non-Partnered Physician] - 01/29/17 1:00 pm (Post hospital follow up for nose bleeds.) Additional Instructions: Instructed to avoid nose blowing, nose picking or rubbing for the next two weeks. Use nasal saline sprays 2-3 sprays at least 4 times daily. Afrin nasal decongestant spray 2 sprays to each nostril twice a day for 3 days and then stop the afrin. Cool mist humidifier at night stand can help increase moisturization in the nose. F/u with ENT in 2 weeks to recheck the nose in hopes of starting Xarelto. Interval History: See below Hospital course: Mr. Munguia is a 61 year old male admitted and managed for presumed new onset Atrial fibrillation and acute on chronic combined CHF exacerbation his hospital stay was complicated by epistaxis while on anticoagulation He is seen at bedside today, clinically improved with adequate diuresis and ~20 pound weight loss His left nostril has stopped bleeding He had presented with SOB, leg swelling and weight gain, he presented to urgent care where he was referred to the ER due to new afib with RVR diagnosis He was started on Cardizem IV, anticoagulation and diuretics, cardiology was consulted His fluid overload has improved He developed L anterior epistaxis while on admission and ENT was consulted. Bleeding stopped with packing and cuaterization Echo done revealed EF 35%, severe concentic LVH, moderate global LV systolic dysfunction, mildly dilated and hypokinetic RV. Moderate-severe biatrial enlargement, mild MR. Tachycardia induced vs ischemic. Given low EF, Diltiazem was stopped and his metoprolol was titrated to achieve rate control He has a CHADSVASC score of 2 (HTN, CHF) and qualifies for anticoagulation Elevated troponin was from demand ischemia, patient declined having LHC for now We will discharge him on current medications-Lisinopril, Spironolactone, Toprol , Norvasc, and ASA, as well as Xarelto. He is instructed to start Xarelto 5 days from now He will follow up with PCP, Cardiology and ENT Plan of care discussed, verbalized understanding - Time Spent with Patient Total time spent providing and/or coordinating discharge services: Less than 30 minutes - Constitutional Vitals: Temp Pulse Resp BP Pulse Ox 98.2 F 65 16 155/91 94 L 01/21/17 07:00 01/21/17 07:00 01/21/17 07:00 01/21/17 07:00 01/21/17 08:23 General appearance: Present: A&O X 3, pleasant, no acute distress, answers questions appropriately - Head Head exam: Present: atraumatic, normocephalic - Eye Eye exam: Present: PERRL, conjuntiva pink, sclera anicteric Pupils: Present: PERRL - Neck Neck exam general surgery: Present: supple, trachea midline. Absent: lymphadenopathy - Respiratory Respiratory exam: Present: CTAB. Absent: accessory muscle use, rales, rhonchi, wheezes - Cardiovascular Cardiovascular exam: Present: RRR, +S1, +S2. Absent: diastolic murmur, gallop, rubs, systolic murmur - GI/Abdominal GI/Abdominal exam: Present: normal bowel sounds, soft, no peritoneal signs. Absent: distended, tenderness - Extremities Exam Extremities exam: Present: warm, radial pulses palpable and symetrical. Absent : calf tenderness, cyanotic, pedal edema - Neurological Exam Neurological exam: Present: CN II-XII intact, oriented X3, no focal deficits. Absent: pronater drift, facial droop, speech deficit - Skin Skin exam: Present: dry, intact - VTE Documentation of Mechanical Device: Graduated compression elastic hosiery
[2017-01-21] MEDS ORDERED: Metoprolol XL (24 HR) Succ 50 MG TAB.ER.24H PO SCH (09:00)
[2017-01-21 11:23] VITALS: BP 151/109
[2017-01-21] MEDS ORDERED: amLODIPine 5 MG TABLET PO SCH (12:30)
== END 2017-01-21 13:36 | disposition home or self-care (01) | DRG 264 ==
LOC: 2ANU 13:46 → EMEROO 13:46 → SUATTDRO 16:39 → 2ANU 17:02
PROVIDERS: ADMIT Internal Medicine; ATTEND Internal Medicine

== ENCOUNTER 2017-02-02 06:41 | Observation (INO) ==
[2017-02-02] MEDS ORDERED: 0.9 % Sodium Chloride 1,000 ML IVC ONE (07:00)
--- NOTE | 2017-02-02 07:09 | Emergency Department Note ---
Disposition Clinical Impression: Atrial fibrillation with rapid ventricular response, Elevated troponin Disposition: Admitted As Inpatient Condition: Fair Referrals: NO,PCP [Non-Partnered Physician] - Forms: ED Satisfaction Letter Time of Disposition: 08:33 Epistaxis HPI - General Chief complaint: ED Epistaxis Stated complaint: epistaxis Time Seen by Provider: 02/02/17 06:48 Source: patient Limitations: no limitations Nursing Notes Reviewed: Yes Vital Signs Reviewed: Yes - History of Present Illness HPI Narrative: 61-year-old nontoxic-appearing male presents emergency Department with a chief complaint of epistasis. The patient states that at approximately midnight last night, he noticed bright red blood coming out of his left nostril as well as swallowing blood. He states that this persisted until approximately 5:00 this morning despite nonpharmacologic measures such as leaning his head forward and pinching his nose. He states that at the time that his nosebleed subsided, he noticed that he was feeling weak, lightheaded, and dizzy. He denies any chest pain or shortness of breath. He denies any fevers or recent illnesses. He does state that he is slightly nauseated from "swallowing so much blood". Patient states a history of previous similar symptoms. In fact, he was evaluated in the emergency department on January 17 for another episode of epistasis. At this time, he was found to be a new onset atrial fibrillation with a rapid ventricular rate of 144 bpm. He was also found to have a new onset /previously undiagnosed CHF as well as an elevated troponin. He was hospitalized for this new onset atrial fibrillation and elevated troponin. At that time, he was placed on Xarelto. During his hospital stay, he developed a nosebleed which required ENT consult. He states he was taken off Xarelto, but has since been resumed this medication. He is followed by Dr. Alex, cardiology. He states he has an appointment with Dr. Alex on February 17 for further workup and evaluation of his atrial fibrillation/congestive heart failure. Pt Subjective Complaint: epistaxis Location: left nostril Onset (ago): hour(s) (At approximately midnight last night) Duration: now resolved Context: history of previous, other anticoagulant use (xarelto), hypertension Treatment prior to arrival: nose pinching, head leaned forward - Related Data Home Medications Medication Instructions Recorded Confirmed Lisinopril [Zestril] 20 mg PO DAILY 01/17/17 02/02/17 Previous Rx's Medication Instructions Recorded Amlodipine [Norvasc] 5 mg PO DAILY #30 tablet 01/21/17 Aspirin Enteric Coated [Aspirin EC] 81 mg PO DAILY #30 tablet. 01/21/17 Furosemide [Lasix] 40 mg PO BID #60 tablet 01/21/17 Metoprolol XL (24 HR) Succ [Toprol 200 mg PO DAILY #60 tab.er.24h 01/21/17 Xl] Oxymetazoline [Afrin] 2 spray NS Q12HR #1 bottle 01/21/17 Rivaroxaban [Xarelto] 20 mg PO QPM #30 tablet 01/21/17 Spironolactone [Aldactone] 25 mg PO DAILY #30 tablet 01/21/17 Allergies Allergy/AdvReac Type Severity Reaction Status Date / Time Amoxicillin Allergy Rash Verified 02/02/17 06:43 Milk Containing Products Allergy Rash Verified 02/02/17 06:43 Penicillins [PCN] Allergy Rash Verified 02/02/17 06:43 All systems ED: reviewed and negative except as stated. Constitutional: Denies: fever, chills, weakness, weight change Eyes: Denies: eye pain, eye discharge, vision change ENT ED: Reports: as per HPI, epistaxis. Denies: ear pain, throat pain, dental pain, hearing loss, congestion, dysphagia Cardiovascular: Denies: chest pain, palpitations, dyspnea on exertion, edema, syncope Respiratory: Denies: cough, dyspnea, wheezes, hemoptysis, stridor Gastrointestinal: Denies: abdominal pain, nausea, vomiting, diarrhea, constipation, hematemesis, melena, hematochezia Genitourinary: Denies: urgency, dysuria, frequency, hematuria Musculoskeletal: Denies: back pain, neck pain, arthralgia, myalgia Integumentary: Denies: rash, abrasion, lesions Neurological: Reports: as per HPI, other ("Dizzy and lightheaded"). Denies: headache, weakness, numbness, paresthesias, confusion, abnormal gait, vertigo Psychiatric: Denies: anxiety, depression, suicidal thoughts, homicidal thoughts , auditory hallucinations, visual hallucinations Endocrine: Denies: fatigue Hematological/Lymphatic: Denies: easy bleeding, easy bruising Allergic/Immunologic: Denies: facial swelling, urticaria Past Medical History - Past Medical History Attestation: Yes The following information was validated with the patient. Source: patient Medical history: Reports: arthritis, atrial fibrillation, CHF, hypertension Surgical history: Reports: orthopedic, other (Left knee, right knee, left shoulder replacement, urethral stent) Psychiatric history: Reports: no psych history - Social History Smoking Status: Never smoker Smokeless Tobacco Status: No Alcohol use: Reports: rarely Drug use: Reports: none Physical Exam - General Limitations: no limitations General appearance: alert - Head Head exam: atraumatic, normocephalic, normal inspection - Eye Eye exam: Present: normal appearance, PERRL, EOMI. Absent: nystagmus - Expanded Eye Exam Pupils: Bilateral: regular, round, reactive, size (2) - Expanded ENT Exam Nasal speculum exam: Bilateral: epistaxis (No active bleeding, however dried blood and clots noted to both nares, left more so than right.) Mouth exam: Present: normal external inspection Throat exam: Present: normal inspection - Neck Neck exam: Present: normal inspection, full ROM, trachea midline. Absent: lymphadenopathy - Chest Chest inspection: Present: normal inspection, symmetric chest wall rise - Respiratory Respiratory exam: Present: normal lung sounds bilaterally. Absent: respiratory distress, wheezes, stridor, accessory muscle use, prolonged expiratory phase - Cardiovascular Cardiovascular exam: Present: tachycardia, irregular rhythm, normal heart sounds - Abdominal Exam Abdominal exam: Present: soft, Non-Tender, normal bowel sounds. Absent: tenderness, distention, guarding, rebound, rigidity - Extremities Exam Extremities exam: Present: normal inspection, full ROM. Absent: tenderness, pedal edema - Neurological Exam Neurological exam: Present: alert, oriented X3 - Psychiatric Psychiatric exam: Present: normal affect, normal mood - Skin Skin exam: Present: warm, dry, intact, normal color Course Course Narrative: 0710: At this time, the patient's epistasis is controlled. No active bleeding. EKG will be performed. Chest x-ray and laboratory results are pending. I have discussed this patient's case with Dr. Piedra. Dr. Piedra recommends consultation with on-call cardiology for further recommendations of the management of his atrial fibrillation with RVR. 0800: Spoke with Dr. Boudreaux, on-call facilities locator. Dr. Boudreaux recommends withholding any pharmacologic measures such as amiodarone or other anti- arrhythmics, as she states that since the patient is hemodynamically stable and his blood pressures are within normal limits. Cardizem is advised against as well because of his ejection fraction of 35% on a recent echocardiogram. She recommends admission to the hospitalist service with cardiology consult as an inpatient. 0850: I spoke with MICHAEL Keenan of the hospitalist service. She accepts the patient for admission to the hospital. Vital Signs Temperature 97.9 F 02/02/17 06:43 Pulse Rate 151 02/02/17 06:43 Respiratory Rate 20 02/02/17 06:43 Blood Pressure 131/88 02/02/17 06:43 O2 Sat by Pulse Oximetry 98 02/02/17 06:43 Temperature 97.9 F 02/02/17 06:43 Pulse Rate 151 02/02/17 06:43 Respiratory Rate 20 02/02/17 06:43 Blood Pressure 131/88 02/02/17 06:43 O2 Sat by Pulse Oximetry 98 02/02/17 06:43 Oxygen Delivery Oxygen Delivery Room Air Epistaxis - Medical Records Medical records reviewed: Yes I reviewed the patient's medical records. - Lab Data Lab results reviewed: Yes I reviewed the patient's lab results. Lab results narrative: Laboratory Last Values WBC 8.7 K/mcL (4.3-11.1) 02/02/17 07:14 RBC 5.34 M/mcL (4.19-5.50) 02/02/17 07:14 Hgb 14.0 g/dL (12.9-16.9) 02/02/17 07:14 Hct 44.2 % (37.5-50.1) 02/02/17 07:14 MCV 82.8 fL (83.0-100.0) L 02/02/17 07:14 MCH 26.2 pg (28.0-33.3) L 02/02/17 07:14 MCHC 31.7 g/dL (31.6-35.5) 02/02/17 07:14 RDW 16.6 % (11.5-14.5) H 02/02/17 07:14 Plt Count 332 K/mcL (140-400) 02/02/17 07:14 MPV 10.2 fL (9.4-12.4) 02/02/17 07:14 Immature Gran % 1.2 % (0-4) 02/02/17 07:14 Seg Neutrophils % 67.7 % 02/02/17 07:14 Lymphocytes % 18.7 % 02/02/17 07:14 Monocytes % 7.9 % 02/02/17 07:14 Eosinophils % 3.7 % 02/02/17 07:14 Basophils % 0.8 % 02/02/17 07:14 Neutrophils # 5.9 K/mcL (1.6-8.9) 02/02/17 07:14 Lymphocytes # 1.6 K/mcL (0.6-4.6) 02/02/17 07:14 Monocytes # 0.7 K/mcL (0.0-1.3) 02/02/17 07:14 Eosinophils # 0.3 K/mcL (0.0-0.6) 02/02/17 07:14 Basophils # 0.1 K/mcL (0.0-0.2) 02/02/17 07:14 PT 11.6 Seconds (9.4-12.1) 02/02/17 07:14 INR 1.1 02/02/17 07:14 APTT 28.6 Seconds (26.0-36.0) 02/02/17 07:14 Sodium 142 mEq/L (136-145) 02/02/17 07:14 Potassium 4.2 mEq/L (3.5-4.5) 02/02/17 07:14 Chloride 110 mEq/L (98-109) H 02/02/17 07:14 Carbon Dioxide 21 mEq/L (19-29) 02/02/17 07:14 BUN 16 mg/dL (8-26) 02/02/17 07:14 Creatinine 0.80 mg/dL (0.72-1.25) 02/02/17 07:14 Est GFR ( Amer) > 60 (> 60) 02/02/17 07:14 Est GFR (Non-Af Amer) > 60 (> 60) 02/02/17 07:14 BUN/Creatinine Ratio 20 (6-26) 02/02/17 07:14 Glucose 123 mg/dL (70-99) H 02/02/17 07:14 Calculated Osmolality 297 (280-300) 02/02/17 07:14 Calcium 9.9 mg/dL (8.6-10.8) 02/02/17 07:14 Troponin I 0.04 ng/mL (0-0.03) H* 02/02/17 07:14 B-Natriuretic Peptide 259 pg/mL (0-100) H 02/02/17 07:14 Result diagrams: 02/02/17 07:14 02/02/17 07:14 Lab Results 02/02/17 02/02/17 02/02/17 Range/Units 07:14 07:14 07:14 WBC 8.7 (4.3-11.1) K/mcL RBC 5.34 (4.19-5.50) M/mcL Hgb 14.0 (12.9-16.9) g/dL Hct 44.2 (37.5-50.1) % MCV 82.8 L (83.0-100.0) fL MCH 26.2 L (28.0-33.3) pg MCHC 31.7 (31.6-35.5) g/dL RDW 16.6 H (11.5-14.5) % Plt Count 332 (140-400) K/mcL MPV 10.2 (9.4-12.4) fL Immature Gran % 1.2 (0-4) % Seg Neutrophils % 67.7 % Lymphocytes % 18.7 % Monocytes % 7.9 % Eosinophils % 3.7 % Basophils % 0.8 % Neutrophils # 5.9 (1.6-8.9) K/mcL Lymphocytes # 1.6 (0.6-4.6) K/mcL Monocytes # 0.7 (0.0-1.3) K/mcL Eosinophils # 0.3 (0.0-0.6) K/mcL Basophils # 0.1 (0.0-0.2) K/mcL PT 11.6 (9.4-12.1) Seconds INR 1.1 APTT 28.6 (26.0-36.0) Seconds Sodium 142 (136-145) mEq/L Potassium 4.2 (3.5-4.5) mEq/L Chloride 110 H (98-109) mEq/L Carbon Dioxide 21 (19-29) mEq/L BUN 16 (8-26) mg/dL Creatinine 0.80 (0.72-1.25) mg/dL Est GFR ( Amer) > 60 (> 60) Est GFR (Non-Af Amer) > 60 (> 60) BUN/Creatinine Ratio 20 (6-26) Glucose 123 H (70-99) mg/dL Calculated Osmolality 297 (280-300) Calcium 9.9 (8.6-10.8) mg/dL Troponin I (0-0.03) ng/mL B-Natriuretic Peptide (0-100) pg/mL 02/02/17 02/02/17 Range/Units 07:14 07:14 WBC (4.3-11.1) K/mcL RBC (4.19-5.50) M/mcL Hgb (12.9-16.9) g/dL Hct (37.5-50.1) % MCV (83.0-100.0) fL MCH (28.0-33.3) pg MCHC (31.6-35.5) g/dL RDW (11.5-14.5) % Plt Count (140-400) K/mcL MPV (9.4-12.4) fL Immature Gran % (0-4) % Seg Neutrophils % % Lymphocytes % % Monocytes % % Eosinophils % % Basophils % % Neutrophils # (1.6-8.9) K/mcL Lymphocytes # (0.6-4.6) K/mcL Monocytes # (0.0-1.3) K/mcL Eosinophils # (0.0-0.6) K/mcL Basophils # (0.0-0.2) K/mcL PT (9.4-12.1) Seconds INR APTT (26.0-36.0) Seconds Sodium (136-145) mEq/L Potassium (3.5-4.5) mEq/L Chloride (98-109) mEq/L Carbon Dioxide (19-29) mEq/L BUN (8-26) mg/dL Creatinine (0.72-1.25) mg/dL Est GFR ( Amer) (> 60) Est GFR (Non-Af Amer) (> 60) BUN/Creatinine Ratio (6-26) Glucose (70-99) mg/dL Calculated Osmolality (280-300) Calcium (8.6-10.8) mg/dL Troponin I 0.04 H* (0-0.03) ng/mL B-Natriuretic Peptide 259 H (0-100) pg/mL - Radiology Data Radiology results reviewed: Yes I reviewed the patient's radiology results. Chest X-Ray 02/02/17 06:59 IMPRESSION: 1. Persistent enlargement of the cardiac silhouette. 2. Minimal prominence of the pulmonary vasculature, which appears not as severe as on the prior exam. D/ / William Mesa MD / William Mesa MD Interpreting Provider: William Mesa MD - EKG Data EKG attestation: Yes I reviewed and interpreted this EKG. EKG results narrative: EKG reviewed by Dr. Ghosh as well. EKG shows atrial fibrillation with a rapid ventricular response and a marked left axis deviation at a rate of 143 bpm. Critical Care Time Critical Care Time: Yes Total Critical Care Time: 30 Attestation: The high probability of a clinically significant, sudden or life threatening deterioration of the [cardiovascular] system(s) required my full and direct attention, intervention and personal management. The aggregate critical care time was [30] minutes. This time is in addition to time spent performing reported procedures but includes the following: [x] Data Review and interpretation [x] Patient assessment and monitoring of vital signs [x] Documentation [x] Medication orders and management Attestation Statement - Attestation Attestation: For this encounter, I have reviewed the [employer] or PA documentation, treatment plan, and medical decision making; and I have had face to face time with this patient. 61-year-old with a recent history of being admitted for A. fib RVR. Was started on Xarelto while in the hospital and developed a nosebleed. Patient was seen by ENT and was restarted back on several toe. Patient went home and developed nosebleed. Patient is found to have rapid irregular heartbeat in the 140s. His examination patient's irregularly irregular with a rate of 140s. Previous echo shows an EF about 30-35%. Patient will be admitted on rate controlling medication. Will obtain consultation with cardiology prior to starting the medications.
[2017-02-02 07:24] LABS: Basophils # 0.1 K/mcL (0.0-0.2); Basophils % 0.8 %; Eosinophils # 0.3 K/mcL (0.0-0.6); Eosinophils % 3.7 %; Hematocrit 44.2 % (37.5-50.1); Immature Granulocytes % 1.2 % (0-4); Lymphocytes # 1.6 K/mcL (0.6-4.6); Lymphocytes % 18.7 %; Mean Corpuscular HGB Conc 31.7 g/dL (31.6-35.5); Mean Corpuscular Hemoglobin 26.2 pg (28.0-33.3); Mean Corpuscular Volume 82.8 fL (83.0-100.0); Mean Platelet Volume 10.2 fL (9.4-12.4); Monocytes # 0.7 K/mcL (0.0-1.3); Monocytes % 7.9 %; Neutrophils # 5.9 K/mcL (1.6-8.9); Platelet Count 332 K/mcL (140-400); Red Blood Count 5.34 M/mcL (4.19-5.50); Red Cell Distribution Width 16.6 % (11.5-14.5); Segmented Neutrophils % 67.7 %
[2017-02-02 07:26] LABS: INR 1.1; Prothrombin Time 11.6 Seconds (9.4-12.1)
[2017-02-02 07:29] LABS: Activated Partial Thrombo Time 28.6 Seconds (26.0-36.0)
[2017-02-02 07:33] LABS: BUN/Creatinine Ratio 20 (6-26); Blood Urea Nitrogen 16 mg/dL (8-26); Calcium 9.9 mg/dL (8.6-10.8); Carbon Dioxide 21 mEq/L (19-29); Chloride 110 mEq/L (98-109); Glucose 123 mg/dL (70-99); Osmolality,Calculated 297 (280-300); Potassium 4.2 mEq/L (3.5-4.5); Sodium 142 mEq/L (136-145); eGFR For African Americans > 60 (> 60); eGFR For Non-African Americans > 60 (> 60)
[2017-02-02] MEDS ORDERED: Naloxone 0.4 MG/ML INJ IVP PRN (10:56)
[2017-02-02] MEDS ORDERED: Acetaminophen 325 MG TABLET PO PRN (10:56)
[2017-02-02] MEDS ORDERED: *HR* Metoprolol 5 MG/5 ML VIAL IVP PRN (11:03)
[2017-02-02] MEDS ORDERED: *HR* Metoprolol 5 MG/5 ML VIAL IVP ONE ×2 (11:03→11:04)
--- NOTE | 2017-02-02 11:55 | Internal Med History&Physical ---
Date of Encounter: 02/02/17 Time of Encounter: 09:00 Assessment and Plan (1) Atrial fibrillation with rapid ventricular response Current visit: Yes Status: Acute 1 Rate is 130-140 Did not take home metoprolol, given IVP lopressor resumed home dose of metoprolol Will adminster lopressor IV PRN for continued HR >130. 2 Consulted cardiology 3 will hold Xarelto for now, cardiology to manage anticoagulation 4 continuos cardiac monitoring 5 oxygen as needed (2) CHF (congestive heart failure) Current visit: No Status: Chronic 1 presently stable we will continue with home lasix 2 monitor I/O daily weights 3 low Na diet Qualifiers: Congestive heart failure type: systolic Congestive heart failure chronicity : chronic Qualified Code(s): I50.22 - Chronic systolic (congestive) heart failure (3) Hypertension Current visit: No Status: Chronic 1 BP elevated, given IV lopressor. Will continue with TERESA BB 2 goal is to maintain systolic less than 140 Qualifiers: Hypertension type: essential hypertension Qualified Code(s): I10 - Essential (primary) hypertension (4) DVT prophylaxis Current visit: Yes Status: Acute 1 WILBERT moniquee (5) Epistaxis Current visit: No Status: Resolved 1 Bleeding has stopped. Will hold Xarelto 2 monitor H/H transfuse as needed 3 consult ENT as needed Internal Medicine - H&P: HPI Admitted From: Emergency Dept Plans for Post Hospital Care: Home History of present illness: Mr. Munguia is a 61 year old male past medical history of arthritis atrial fibrillation congestive heart failure hypertension. According to the patient he woke up this morning approximately 12 AM he does bright red blood from his left nostril he was also swallowing blood. He attempted to stop the bleeding through manual means( applying pressure leaning his head forward pinching his nose) however the bleeding continued until 5 AM. After 5 AM the bleeding did subside some however he did feel weak and lightheaded and dizzy. He denies any chest pain shortness of breath palpitations. He denies any fevers chills he is slightly nauseated from swallowing blood but no vomiting. The patient did have a similar episode on January 17 when he presented with epistaxis and at that time he was found to be in atrial fibrillation with RVR. This was new onset as well as he was in CHF with an elevated troponin. He was hospitalized with atrial fibrillation and was placed on Xarelto and rate controlling medications.He has not been been compliant with Xarelto dt it causes nose bleeds when he takes it. He is to follow with Dr. Alex on February 17 He was discharged home. he presented to the ER with the above complaints. According to ER records of her presentation EKG revealed atrial fibrillation with RVR heart rate is bleeding had resolved. Heart rate was 151 blood pressure was 131/88 on presentation lab work was unremarkable troponin 0.04 BNP 259 which is down from previous chest x- ray showed persistent enlargement of cardiac silhouette and minimal prominence and pulmonary vascular. ED physician did speak to Dr. Boudreaux concerning antiarrhythmics which she recommended withholding amiodarone blood pressures are within normal limits and advised against Cardizem because of ejection fraction of 35%. He has been admitted for further workup and evaluation. Presently patient denies any chest pain or shortness of breath he is tachycardic with heart rate 130-140 his blood pressure is 160/100. I reviewed this case with Dr. Pate who agrees with plan Past Med Surg Social Fam HX - Past Medical History Medical history: arthritis, atrial fibrillation, CHF, hypertension Psychiatric history: no psych history - Past Surgical History Surgical History: orthopedic, other (Left knee, right knee, left shoulder replacement, urethral stent) - Social History Smoking Status: Never smoker Smokeless Tobacco Status: No Alcohol use: rarely Drug use: none - Family History Mother Living Status: Father Living Status: Hx Family Cardiac Disorders: Yes Hx Family Endocrine Disorder: Yes (diabetes) Internal Medicine - H&P: Meds Lisinopril [Zestril] 20 mg PO DAILY 01/17/17 [History] Amlodipine [Norvasc] 5 mg PO DAILY #30 tablet 01/21/17 [Rx] Aspirin Enteric Coated [Aspirin EC] 81 mg PO DAILY #30 tablet. 01/21/17 [Rx] Furosemide [Lasix] 40 mg PO BID #60 tablet 01/21/17 [Rx] Metoprolol XL (24 HR) Succ [Toprol Xl] 200 mg PO DAILY #60 tab.er.24h 01/21/17 [ Rx] Oxymetazoline [Afrin] 2 spray NS Q12HR #1 bottle 01/21/17 [Rx] Rivaroxaban [Xarelto] 20 mg PO QPM #30 tablet 01/21/17 [Rx] Spironolactone [Aldactone] 25 mg PO DAILY #30 tablet 01/21/17 [Rx] Allergies Amoxicillin Allergy (Verified 02/02/17 06:43) Rash Milk Containing Products Allergy (Verified 02/02/17 06:43) Rash Penicillins [PCN] Allergy (Verified 02/02/17 06:43) Rash All Systems PM: A 10-system review of systems was performed and is negative for pertinent findings except as documented above in the HPI. - Constitutional Constitutional: no chills, no fever(s), no night sweats - Cardiovascular Cardiovascular ROS IM: lightheadedness, no chest pain, no diaphoresis, no dyspnea, no palpitations, no syncope - Respiratory Respiratory: no cough, no dyspnea, no wheezing, no excessive phlegm production - Gastrointestinal Gastrointestinal: nausea, no abdominal pain, no diarrhea, no hematemesis, no hematochezia, no melena, no vomiting - Musculoskeletal Musculoskeletal ROS IM: no numbness, no tingling - Neurological Neurological ROS: no confusion, no convulsions, no focal weakness, no numbness, no tingling, no tremor(s) - Constitutional Vitals: Temp Pulse Resp BP Pulse Ox 97.9 F 129 28 163/115 95 02/02/17 06:43 02/02/17 11:13 02/02/17 11:36 02/02/17 11:36 02/02/17 11:13 General appearance: Present: A&O X 3, answers questions appropriately - Head Head exam: Present: atraumatic, normocephalic - ENT Additional comments: Left nares with dried blood clot no active bleeding - Respiratory Respiratory exam: Present: CTAB. Absent: accessory muscle use, rales, rhonchi, wheezes - Cardiovascular Cardiovascular exam: Present: irregular rhythm, +S1, +S2. Absent: diastolic murmur, gallop, rubs, systolic murmur - GI/Abdominal GI/Abdominal exam: Present: normal bowel sounds, soft, no peritoneal signs. Absent: distended, tenderness - Extremities Exam Extremities exam: Present: warm, radial pulses palpable and symetrical. Absent : calf tenderness, cyanotic, pedal edema - Neurological Exam Neurological exam: Present: CN II-XII intact, oriented X3, no focal deficits. Absent: pronater drift, facial droop, speech deficit - Skin Skin exam: Present: dry, intact Internal Med - H&P Results - Labs CBC & Chem 7: 02/02/17 07:14 02/02/17 07:14 - EKG Data EKG comments: 02/02/17 13:17 Atrial fibrillation with RVR - Diagnostic Studies Other Images Additional comments: Chest X-Ray 02/02/17 06:59 IMPRESSION: 1. Persistent enlargement of the cardiac silhouette. 2. Minimal prominence of the pulmonary vasculature, which appears not as severe as on the prior exam. D/ / William Mesa MD / William Mesa MD Interpreting Provider: William Mesa MD
[2017-02-02] MEDS: Aspirin Enteric Coated 81 MG Tablet PO SCH (12:51)
[2017-02-02] MEDS: Spironolactone 25 MG TABLET PO SCH (12:52)
[2017-02-02] MEDS: Lisinopril 20 MG TABLET PO SCH (12:52)
[2017-02-02] MEDS: Metoprolol XL (24 HR) Succ 50 MG TAB.ER.24H PO SCH (12:52)
[2017-02-02] MEDS: amLODIPine 5 MG TABLET PO SCH (12:52)
[2017-02-02] MEDS: Furosemide 40 MG TABLET PO SCH ×2 (12:52→19:59)
--- NOTE | 2017-02-02 13:36 | Cardiology Consult Note ---
<Luis Enrique Bearden R - Last Filed: 02/02/17 14:30> Date of Encounter: 02/02/17 Time of Encounter: 13:30 Assessment and Plan (1) Atrial fibrillation with rapid ventricular response Current Visit: Yes Status: Acute Missed AM dose of Toprol. A-Fib RVR HR 150s on presentation. Currently 120s- 150s at bedside. 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 Given IV Lopressor 5mg and home dose of PO Toprol XL 200mg. Attempt to rate control on BB. Previously started on Xarelto for anticoagulation and has been experiencing recurrent nose bleeds. Reports not taking Xarelto consistently and that nearly each time he takes it, he develops epistaxis. H&H Stable. Hold Xarelto. K 4.2. Check Mag. Recent TSH within normal range. (2) CHF (congestive heart failure) Current Visit: No Status: Chronic Diagnosed with systolic CHF earlier this month--EF 35%. BNP 259. CXR minimal prominence of pulmonary vasculature, improved from prior exam. No pleural effusions. Pt appears euvolemic on exam. IV Lasix started by hospitalist. Qualifiers: Congestive heart failure type: systolic Congestive heart failure chronicity : chronic Qualified Code(s): I50.22 - Chronic systolic (congestive) heart failure (3) Cardiomyopathy Current Visit: Yes Status: Chronic EF 35% on echo earlier this month. Ischemic vs. nonischemic. [facility] ordered by Dr. Alex as outpt for ischemic evaluation. Will consider during inpt stay, but complicated by epistaxis. Will trial on Plavix 75mg daily to see if he is able to tolerate this prior to LHC. Continue BB, TERESA-I, Lasix, and Aldactone. Qualifiers: Cardiomyopathy type: unspecified Qualified Code(s): I42.9 - Cardiomyopathy , unspecified (4) Elevated troponin Current Visit: Yes Status: Acute Borderline--0.04 in setting of A-Fib with RVR. Nondiagnostic for ACS. Pt denies chest pain. Discussion w patient/family: The assessment and plan as outlined above was discussed with the patient and/or family members who expressed understanding and agreement. All questions were answered. Thank you for involving us in the care of your patient. Please call with any questions. I will discuss all the above with Dr. Boudreaux and make changes as necessary. History of Present Illness Consult date: 02/02/17 Requesting physician: Ree Argueta Consult reason: A-Fib RVR Chief complaint: nose bleeds History of present illness: Mr. Munguia is a 61 year old male with PMH of HTN and arthritis, also recently diagnosed earlier this month with A-Fib and CMP--systolic CHF with EF 35%. Recent inpt stay earlier this month he was started on BB for rate control and Xarelto for anticoagulation. He developed nosebleeds on Xarelto, was seen by ENT as inpt at that time s/p cautery and packing. Ischemic evaluation was discussed, but postponed due to nosebleeds and recommendations to avoid antiplatelets for 5 days. Pt followed-up with Dr. Alex and [facility] was ordered. Nose bleed reported. Saw ENT and had nasal endoscopy. Pt reports he has been taking the xarelto intermittently, as each time he takes it he experiences the nosebleeds. He took Xarelto last night and experienced a "bad" nosebleed that he could not get stopped, prompting ED evaluation. HR found to be 150s on presentation, A-Fib RVR. Nosebleed has since stopped. Pt denies chest pain, dyspnea or palpitations. Troponin 0.04. He did not take his home BB this AM. Past Med Surg Social Fam HX - Past Medical History Medical history: arthritis, atrial fibrillation, CHF, hypertension Psychiatric history: no psych history - Past Surgical History Surgical History: orthopedic, other (Left knee, right knee, left shoulder replacement, urethral stent) - Social History Smoking Status: Never smoker Smokeless Tobacco Status: No Alcohol use: rarely Drug use: none - Family History Mother Living Status: Father Living Status: Hx Family Cardiac Disorders: Yes Hx Family Endocrine Disorder: Yes (diabetes) Medications and Allergies Lisinopril [Zestril] 20 mg PO DAILY 01/17/17 [History] Amlodipine [Norvasc] 5 mg PO DAILY #30 tablet 01/21/17 [Rx] Aspirin Enteric Coated [Aspirin EC] 81 mg PO DAILY #30 tablet. 01/21/17 [Rx] Furosemide [Lasix] 40 mg PO BID #60 tablet 01/21/17 [Rx] Metoprolol XL (24 HR) Succ [Toprol Xl] 200 mg PO DAILY #60 tab.er.24h 01/21/17 [ Rx] Oxymetazoline [Afrin] 2 spray NS Q12HR #1 bottle 01/21/17 [Rx] Rivaroxaban [Xarelto] 20 mg PO QPM #30 tablet 01/21/17 [Rx] Spironolactone [Aldactone] 25 mg PO DAILY #30 tablet 01/21/17 [Rx] Allergies Amoxicillin Allergy (Verified 02/02/17 06:43) Rash Milk Containing Products Allergy (Verified 02/02/17 06:43) Rash Penicillins [PCN] Allergy (Verified 02/02/17 06:43) Rash All Systems Review: A 10-system review of systems was performed and is negative for pertinent findings except as documented above in the HPI. - EENT Nose, mouth and throat: epistaxis Physical Examination Vital Signs, Last 4 Hours Temp Pulse Resp BP Pulse Ox 02/02/17 11:58 97.7 F 125 16 142/108 95 02/02/17 11:36 28 163/115 02/02/17 11:13 129 28 163/115 95 02/02/17 10:40 142 163/115 02/02/17 10:38 164/108 02/02/17 09:54 148 23 163/145 96 General: Conversant, No Apparent Distress HEENT: Atraumatic, Normocephaly, Mucus Membranes Moist Neck: No JVD, Normal carotid pulses Cardiac: Other (irregularly irregular) Lungs: Normal Breath Sounds, No Wheeze, Rales, Rhonchi Neuro: Alert and responsive, No focal deficits noted Abdomen: Soft, Non-Tender Skin: No rashes noted on visualized skin Musculoskeletal: No Chest Wall Tenderness Extremities: No Clubbing, No Cyanosis, No Edema, Normal Pulses Results 02/02/17 07:14 02/02/17 07:14 Short CBC 02/02/17 Range/Units 07:14 WBC 8.7 (4.3-11.1) K/mcL Hgb 14.0 (12.9-16.9) g/dL Hct 44.2 (37.5-50.1) % Plt Count 332 (140-400) K/mcL Neutrophils # 5.9 (1.6-8.9) K/mcL BMP 02/02/17 Range/Units 07:14 Sodium 142 (136-145) mEq/L Potassium 4.2 (3.5-4.5) mEq/L Chloride 110 H (98-109) mEq/L Carbon Dioxide 21 (19-29) mEq/L BUN 16 (8-26) mg/dL Creatinine 0.80 (0.72-1.25) mg/dL Glucose 123 H (70-99) mg/dL Calcium 9.9 (8.6-10.8) mg/dL Cardiac Enzymes 02/02/17 Range/Units 07:14 Troponin I 0.04 H* (0-0.03) ng/mL Impressions Chest X-Ray 02/02/17 06:59 IMPRESSION: 1. Persistent enlargement of the cardiac silhouette. 2. Minimal prominence of the pulmonary vasculature, which appears not as severe as on the prior exam. D/ / William Mesa MD / William Mesa MD Interpreting Provider: William Mesa MD Active Medications Acetaminophen (Tylenol) 650 mg PO Q6HR PRN PRN Reason: Mild Pain (1-3) Stop: 08/04/17 10:57 Amlodipine Besylate (Norvasc) 5 mg PO DAILY BENY PRN Reason: Protocol Stop: 08/04/17 11:01 Last Admin: 02/02/17 12:52 Dose: 5 mg Aspirin (Aspirin Ec) 81 mg PO DAILY BENY Stop: 08/04/17 11:01 Last Admin: 02/02/17 12:51 Dose: Not Given Furosemide (Lasix) 40 mg PO BIDDIURETIC BENY Stop: 08/04/17 11:01 Last Admin: 02/02/17 12:52 Dose: 40 mg Lisinopril (Zestril) 20 mg PO DAILY BENY PRN Reason: Protocol Stop: 08/04/17 11:01 Last Admin: 02/02/17 12:52 Dose: 20 mg Metoprolol Succinate (Toprol Xl) 200 mg PO DAILY ON LICENSE OF [facility] Stop: 08/04/17 11:01 Last Admin: 02/02/17 12:52 Dose: 200 mg Metoprolol Tartrate (Lopressor) 5 mg IVP Q6HR PRN PRN Reason: Tachyarrhythmias Stop: 08/04/17 11:04 Naloxone HCl (Narcan) 0.4 mg IVP Q2MIN PRN PRN Reason: Opioid Reversal Stop: 08/04/17 10:57 Spironolactone (Aldactone) 25 mg PO DAILY BNEY Stop: 08/04/17 11:01 Last Admin: 02/02/17 12:52 Dose: 25 mg - Imaging and Cardiology Chest Xray: report reviewed Echo: report reviewed - EKG Interpretation EKG results cardiology: personally reviewed (A-Fib RVR rate 143) Consult Discharge Plan - Plan Referrals: Miriam Marinelli MD [Primary Care Provider] - <Joanne Boudreaux - Last Filed: 02/02/17 17:14> Assessment and Plan Discussion w patient/family: The assessment and plan as outlined above was discussed with the patient and/or family members who expressed understanding and agreement. All questions were answered. Thank you for involving us in the care of your patient. Please call with any questions. History of Present Illness History of present illness: Mr. Munguia is a 61 year old male All Systems Review: A 10-system review of systems was performed and is negative for pertinent findings except as documented above in the HPI. Physical Examination Vital Signs, Last 4 Hours Temp Pulse Resp BP Pulse Ox 02/02/17 16:00 97.9 F 129 16 136/96 97 02/02/17 14:02 140/90 Results 02/02/17 07:14 02/02/17 07:14 Lab Results 02/02/17 13:14 Troponin I 0.04 H* - Attending Attestation I examined this patient and my medical decision-making was reviewed with the PULLING MACHINE OPERATOR/PA/Advanced Practice Nurse/Resident Physician. I agree with the documented findings, disposition and treatment plan. Assessment: Mr. Munguia was recently hospitalized earlier this month for AFIB and newly discovered cardiomyopathy. Unfortunately, he developed epistaxis on xarelto, was seen by ENT s/p cautery and packing and therefore ischemic evaluation was postponed and planned as an outpatient. The patient has been taking xarelto intermittently at home and has had a nosebleed with each dose. He presents today because of an uncontrolled nose bleed that has now resolved. Also presented with AFIB RVR after missing morning dose of Toprol which we will administer. We otherwise discussed proceeding with LHC while he is here since this was already planned. However, we are concerned that he may develop significant epistaxis on DAPT if PCI is performed. Therefore, we recommend consulting ENT for further evaluation before considering doing a heart catheterization. PLAN: 1. Epistaxis: Recommend ENT evaluation. 2. Cardiomyopathy: Recommend ENT evaluation before proceeding with LHC. Continue BB, ACEI, aldactone and diuretic. 3. AFIB RVR: Continue BB and observe. May need to uptitrate. Xarelto on hold. Tolerating aspirin.
--- NOTE | 2017-02-03 06:53 | Electrocardiograph Report ---
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
[2017-02-03 06:57] LABS: Basophils # 0.1 K/mcL (0.0-0.2); Basophils % 0.9 %; Eosinophils # 0.4 K/mcL (0.0-0.6); Eosinophils % 4.7 %; Hematocrit 42.8 % (37.5-50.1); Hemoglobin 13.8 g/dL (12.9-16.9); Immature Granulocytes % 0.7 % (0-4); Lymphocytes # 1.4 K/mcL (0.6-4.6); Lymphocytes % 16.5 %; Mean Corpuscular HGB Conc 32.2 g/dL (31.6-35.5); Mean Corpuscular Hemoglobin 26.4 pg (28.0-33.3); Mean Corpuscular Volume 81.8 fL (83.0-100.0); Mean Platelet Volume 10.1 fL (9.4-12.4); Monocytes # 0.7 K/mcL (0.0-1.3); Monocytes % 8.2 %; Platelet Count 301 K/mcL (140-400); Red Blood Count 5.23 M/mcL (4.19-5.50); Red Cell Distribution Width 16.5 % (11.5-14.5)
[2017-02-03 07:06] LABS: BUN/Creatinine Ratio 19 (6-26); Blood Urea Nitrogen 15 mg/dL (8-26); Calcium 9.9 mg/dL (8.6-10.8); Carbon Dioxide 26 mEq/L (19-29); Chloride 103 mEq/L (98-109); Glucose 104 mg/dL (70-99); Osmolality,Calculated 289 (280-300); Sodium 139 mEq/L (136-145); eGFR For African Americans > 60 (> 60); eGFR For Non-African Americans > 60 (> 60)
[2017-02-03] MEDS: Furosemide 40 MG TABLET PO SCH ×2 (08:48→17:41)
[2017-02-03] MEDS: Metoprolol XL (24 HR) Succ 50 MG TAB.ER.24H PO SCH (08:48)
[2017-02-03] MEDS: Spironolactone 25 MG TABLET PO SCH (08:48)
[2017-02-03] MEDS: amLODIPine 5 MG TABLET PO SCH (08:48)
[2017-02-03] MEDS: Aspirin Enteric Coated 81 MG Tablet PO SCH (08:48)
[2017-02-03] MEDS: Lisinopril 20 MG TABLET PO SCH (08:48)
--- NOTE | 2017-02-03 11:44 | Cardiology Progress Note ---
Date of Encounter: 02/03/17 Time of Encounter: 11:42 Assessment and Plan (1) Atrial fibrillation with rapid ventricular response Current Visit: Yes Status: Acute Rate better controlled since BB resumed. 24 hour tele AVG HR 98, A-Fib. Continue Toprol XL 200mg daily. EF 35%--not a good candidate for cardizem long-term. Previously started on Xarelto for anticoagulation and has been experiencing recurrent nose bleeds. Reports not taking Xarelto consistently and that nearly each time he takes it, he develops epistaxis. H&H Stable. Hold Xarelto. Consult ENT. (2) CHF (congestive heart failure) Current Visit: No Status: Chronic Diagnosed with systolic CHF earlier this month--EF 35%. BNP 259. CXR minimal prominence of pulmonary vasculature, improved from prior exam. No pleural effusions. Pt appears euvolemic on exam. Continue PO Lasix. Qualifiers: Congestive heart failure type: systolic Congestive heart failure chronicity : chronic Qualified Code(s): I50.22 - Chronic systolic (congestive) heart failure (3) Cardiomyopathy Current Visit: Yes Status: Chronic EF 35% on echo earlier this month. Ischemic vs. nonischemic. [facility] ordered by Dr. Alex as outpt for ischemic evaluation. Will consider during inpt stay, but complicated by epistaxis. Will trial on Plavix 75mg daily to see if he is able to tolerate this prior to C once okay with ENT. Consult to ENT. Continue BB, TERESA-I, Lasix, and Aldactone. Qualifiers: Cardiomyopathy type: unspecified Qualified Code(s): I42.9 - Cardiomyopathy , unspecified (4) Elevated troponin Current Visit: Yes Status: Acute Borderline--0.04, 0.04, 0.02 in setting of A-Fib with RVR. Nondiagnostic for ACS. Pt denies chest pain. Discussion w patient/family: The assessment and plan as outlined above was discussed with the patient and/or family members who expressed understanding and agreement. All questions were answered. Thank you for involving us in the care of your patient. Please call with any questions. I will discuss all the above with Dr. Boudreaux and make changes as necessary. Subjective Principal diagnosis: A-Fib RVR, CMP Interval history: No acute complaints this AM. Objective Vital Signs Temp Pulse Resp BP Pulse Ox 02/03/17 07:00 98.5 F 91 17 136/92 02/03/17 04:00 97.9 F 92 16 132/94 99 02/03/17 00:00 97.9 F 90 16 134/94 98 02/02/17 21:58 98 02/02/17 21:00 97.7 F 02/02/17 20:03 103 16 138/90 98 02/02/17 16:00 97.9 F 129 16 136/96 97 02/02/17 14:02 140/90 02/02/17 11:58 97.7 F 125 16 142/108 95 Intake and Output 02/02/17 02/03/17 02/03/17 23:59 07:59 15:59 Intake Total 240 / 240 600 / 600 Balance 240 / 240 600 / 600 Intake: Oral 240 / 240 600 / 600 Other: Meal Dinner Breakfast Percent of Meal Consumed 100% 100% # Voids 1 Weight 88.1 kg Patient Weight 02/03/17 23:59 Weight 88.1 kg General: Conversant, No Apparent Distress HEENT: Atraumatic, Normocephaly, Mucus Membranes Moist Neck: No JVD, Normal carotid pulses Cardiac: Other (irregularly irregular ) Lungs: Other (diminished) Neuro: Alert and responsive, No focal deficits noted Abdomen: Soft, Non-Tender Skin: No rashes noted on visualized skin Musculoskeletal: No Chest Wall Tenderness Extremities: No Clubbing, No Cyanosis, No Edema, Normal Pulses Results 02/03/17 06:38 02/03/17 06:38 Lab Results 02/02/17 02/02/17 02/02/17 13:14 19:23 19:23 WBC Hgb Hct Plt Count Sodium Potassium Chloride Carbon Dioxide BUN Creatinine Glucose Calcium Magnesium 2.0 Troponin I 0.04 H* 0.03 02/03/17 02/03/17 06:38 06:38 WBC 8.7 Hgb 13.8 Hct 42.8 Plt Count 301 Sodium 139 Potassium 4.0 Chloride 103 Carbon Dioxide 26 BUN 15 Creatinine 0.80 Glucose 104 H Calcium 9.9 Magnesium Troponin I - EKG Interpretation EKG results cardiology: other (24 hour tele AVG HR 98, A-Fib.) Consult Discharge Plan - Plan Referrals: Miriam Marinelli MD [Primary Care Provider] - 02/23/17 4:15 pm
--- NOTE | 2017-02-03 14:22 | Event Note ---
Date of Encounter: 02/03/17 Time of Encounter: 14:18 - Cardiology Event Note Discussed with ENT, Dr. Finch. Recent nasal endoscopy as outpt. Dr. Finch reports that pt has engorged vessels throughout the nasal mucosa, predisposing him to epistaxis with anticoagulation. There is no specific area that can be targeted since he is engorged throughout. No further intervention is warranted from ENT standpoint. Dr. Finch recommended considering Hematology evaluation for any clotting disorders that could also be contributing to his epistaxis. Placed call to Mi Maurer, oncology-hematology SNAP ATTACHER. She will discuss with hem- onc providers and determine if this is appropriate to do as inpt work-up. Further recommendations to follow. Will then determine when it is safe to trial Plavix prior to proceeding with LHC.
[2017-02-03 16:51] VITALS: BP 123/77
--- NOTE | 2017-02-03 18:38 | Discharge Summary ---
Date of Encounter: 02/23/17 Time of Encounter: 18:35 - Discharge Diagnosis (1) Epistaxis Priority: Primary Status: Resolved (2) Cardiomyopathy Priority: Primary Status: Chronic Qualifiers: Cardiomyopathy type: unspecified Qualified Code(s): I42.9 - Cardiomyopathy , unspecified (3) Atrial fibrillation with rapid ventricular response Priority: Secondary Status: Acute (4) Hypertension Priority: Secondary Status: Chronic Qualifiers: Hypertension type: essential hypertension Qualified Code(s): I10 - Essential (primary) hypertension (5) CHF (congestive heart failure) Priority: Secondary Status: Chronic Qualifiers: Congestive heart failure type: systolic Congestive heart failure chronicity : chronic Qualified Code(s): I50.22 - Chronic systolic (congestive) heart failure - Discharge Medications Home Medications: Lisinopril [Zestril] 20 mg PO DAILY 01/17/17 [History] Amlodipine [Norvasc] 5 mg PO DAILY #30 tablet 01/21/17 [Rx] Aspirin Enteric Coated [Aspirin EC] 81 mg PO DAILY #30 tablet.dr 01/21/17 [Rx] Furosemide [Lasix] 40 mg PO BID #60 tablet 01/21/17 [Rx] Metoprolol XL (24 HR) Succ [Toprol Xl] 200 mg PO DAILY #60 tab.er.24h 01/21/17 [ Rx] Oxymetazoline [Afrin] 2 spray NS Q12HR #1 bottle 01/21/17 [Rx] Spironolactone [Aldactone] 25 mg PO DAILY #30 tablet 01/21/17 [Rx] Allergies/Adverse Reactions: Allergies Amoxicillin Allergy (Verified 02/02/17 06:43) Rash Milk Containing Products Allergy (Verified 02/02/17 06:43) Rash Penicillins [PCN] Allergy (Verified 02/02/17 06:43) Rash Procedures/tests Complete & Pending: Procedures Performed prior 72 hours Category Date Time Status ECG 12 lead ECG [ECG] AM 0600 Y 02/03/17 06:00 Completed Date of admission: 02/02/17 09:52 Primary care physician: Miriam Marinelli Consults: 02/02/17 10:41 Consult to Cardiology [CONS] Routine Comment: Consulting Provider: Cardiology Andes Reason for Consult: Afib RVR Hx, elevated troponin, EF 35% Time Notified: 10:45 Call Completed: No Discharging clinician: Jose Phillip - Patient Status Disposition: Left Against Medical Advice Condition: Fair Functional capacity at discharge: independent ambulation Overall status at discharge: patient is not back to baseline - Discharge Instructions Instructions: Clopidogrel (By mouth) Follow Up With: Miriam Marinelli MD [Primary Care Provider] - 02/23/17 4:15 pm - Diet and Activity Activity: increase activity as tolerated Diet: low fat, low cholesterol Interval History: Mr. Munguia is a 61 year old male past medical history of arthritis atrial fibrillation congestive heart failure hypertension. According to the patient he woke up this morning approximately 12 AM he does bright red blood from his left nostril he was also swallowing blood. He attempted to stop the bleeding through manual means( applying pressure leaning his head forward pinching his nose) however the bleeding continued until 5 AM. After 5 AM the bleeding did subside some however he did feel weak and lightheaded and dizzy. He denies any chest pain shortness of breath palpitations. He denies any fevers chills he is slightly nauseated from swallowing blood but no vomiting. The patient did have a similar episode on January 17 when he presented with epistaxis and at that time he was found to be in atrial fibrillation with RVR. This was new onset as well as he was in CHF with an elevated troponin. He was hospitalized with atrial fibrillation and was placed on Xarelto and rate controlling medications.He has not been been compliant with Xarelto dt it causes nose bleeds when he takes it. He is to follow with Dr. Alex on February 17/ He was discharged home. he presented to the ER with the above complaints. According to ER records of her presentation EKG revealed atrial fibrillation with RVR heart rate is bleeding had resolved. Heart rate was 151 blood pressure was 131/88 on presentation lab work was unremarkable troponin 0.04 BNP 259 which is down from previous chest x- ray showed persistent enlargement of cardiac silhouette and minimal prominence and pulmonary vascular. ED physician did speak to Dr. Boudreaux concerning antiarrhythmics which she recommended withholding amiodarone blood pressures are within normal limits and advised against Cardizem because of ejection fraction of 35%. He has been admitted for further workup and evaluation. Presently patient denies any chest pain or shortness of breath he is tachycardic with heart rate 130-140 his blood pressure is 160/100. Hospital course: patient was hospitalized and his Xarelto was stopped. his bleeding was under control and stopped eventually. his blood pressure is with in acceptable range. patient is not yet seen by ENT he was started on Plavix by cardiology. patient today at around 6 pm insisted to go home he understood risk, side effects and complications of leaving AMA which includes CVA, Peripheral embolization, renal failure, TN and even he still insists to go home. LINDA dahl was with me in the room during conversation we will get all appointments to patient tomorrow for outpatient follow up. - Time Spent with Patient Total time spent providing and/or coordinating discharge services: - Constitutional Vitals: Temp Pulse Resp BP Pulse Ox 98.5 F 103 16 123/77 97 02/03/17 07:00 02/03/17 16:00 02/03/17 16:00 02/03/17 16:00 02/03/17 16:00 General appearance: Present: A&O X 3, answers questions appropriately - Head Head exam: Present: atraumatic, normocephalic - Eye Eye exam: Present: PERRL, conjuntiva pink, sclera anicteric Pupils: Present: PERRL - Neck Neck exam general surgery: Present: supple, trachea midline. Absent: lymphadenopathy - Respiratory Respiratory exam: Present: CTAB. Absent: accessory muscle use, rales, rhonchi, wheezes - Cardiovascular Cardiovascular exam: Present: RRR, +S1, +S2. Absent: diastolic murmur, gallop, rubs, systolic murmur - GI/Abdominal GI/Abdominal exam: Present: normal bowel sounds, soft, no peritoneal signs. Absent: distended, tenderness - Extremities Exam Extremities exam: Present: warm, radial pulses palpable and symetrical. Absent : calf tenderness, cyanotic, pedal edema - Neurological Exam Neurological exam: Present: CN II-XII intact, oriented X3, no focal deficits. Absent: pronater drift, facial droop, speech deficit - Skin Skin exam: Present: dry, intact
--- NOTE | 2017-02-04 09:10 | Electrocardiograph Report ---
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
== END 2017-02-03 19:23 | disposition left against medical advice (07) ==
LOC: 3BNU 06:41 → EMEROO 06:41 → SUATTDRO 09:52 → 2NENU 10:16
PROVIDERS: ADMIT Nurse Practitioner Family; ATTEND Internal Medicine

== ENCOUNTER 2019-08-22 13:05 | Observation (INO) ==
[2019-08-22] MEDS ORDERED: Isovue-370 500 ML BOTTLE IVP ONE (13:37)
[2019-08-22 13:51] LABS: Basophils # 0.1 K/mcL (0.0-0.2); Basophils % 0.4 %; Eosinophils # 0.1 K/mcL (0.0-0.6); Eosinophils % 0.4 %; Hematocrit 24.2 % (37.5-50.1); Hemoglobin 7.9 g/dL (12.9-16.9); Immature Granulocytes % 1.5 % (0-4); Lymphocytes # 1.9 K/mcL (0.6-4.6); Lymphocytes % 15.7 %; Mean Corpuscular HGB Conc 32.6 g/dL (31.6-35.5); Mean Platelet Volume 10.2 fL (9.4-12.4); Monocytes # 0.4 K/mcL (0.0-1.3); Monocytes % 3.7 %; Neutrophils # 9.3 K/mcL (1.6-8.9); Platelet Count 267 K/mcL (140-400); Red Blood Count 2.63 M/mcL (4.19-5.50); Red Cell Distribution Width 13.8 % (11.5-14.5); Segmented Neutrophils % 78.3 %; White Blood Count 11.9 K/mcL (4.3-11.1)
[2019-08-22 14:11] LABS: Alanine Aminotransferase 32 Units/L (7-52); Albumin 3.7 g/dL (3.5-5.7); Albumin/Globulin Ratio 1.5 (1.1-2.2); Alkaline Phosphatase 166 Units/L (34-104); Aspartate Amino Transferase 23 Units/L (13-39); BUN/Creatinine Ratio 21 (6-26); Bilirubin,Total 0.5 mg/dL (0.3-1.0); Blood Urea Nitrogen 28 mg/dL (8-23); Carbon Dioxide 22 mEq/L (23-29); Chloride 104 mEq/L (98-107); Globulin 2.4 g/dL (2.4-3.5); Glucose 197 mg/dL (70-105); Osmolality,Calculated 293 (280-300); Potassium 4.9 mEq/L (3.5-5.1); Sodium 136 mEq/L (136-145); Total Protein 6.1 g/dL (6.4-8.9); eGFR For African Americans > 60 (> 60); eGFR For Non-African Americans 53 (> 60)
[2019-08-22 14:36] LABS: INR 1.2; Prothrombin Time 13.8 Seconds (9.4-12.1)
[2019-08-22] MEDS ORDERED: 0.9 % Sodium Chloride 250 ML ONE ×3 (15:14→21:59)
[2019-08-22] MEDS ORDERED: 0.9 % Sodium Chloride 1,000 ML IVC ONE (15:50)
[2019-08-22] MEDS ORDERED: Naloxone 0.4 MG/ML INJ IVP PRN (16:19)
[2019-08-22] MEDS ORDERED: Acetaminophen 325 MG TABLET PO PRN (16:21)
[2019-08-22] MEDS ORDERED: 0.9 % Sodium Chloride 1,000 ML IVC SCH (16:30)
[2019-08-22] MEDS: Pantoprazole 40 MG VIAL IVP SCH (17:40)
[2019-08-22] MEDS: 0.9 % Sodium Chloride 1,000 ML IVC SCH (17:40)
[2019-08-23 03:54] LABS: Basophils # 0.1 K/mcL (0.0-0.2); Basophils % 0.4 %; Eosinophils # 0.1 K/mcL (0.0-0.6); Eosinophils % 0.9 %; Hematocrit 27.7 % (37.5-50.1); Hemoglobin 9.5 g/dL (12.9-16.9); Immature Granulocytes % 1.7 % (0-4); Lymphocytes # 2.3 K/mcL (0.6-4.6); Lymphocytes % 18.1 %; Mean Corpuscular HGB Conc 34.3 g/dL (31.6-35.5); Mean Corpuscular Hemoglobin 30.1 pg (28.0-33.3); Mean Corpuscular Volume 87.7 fL (83.0-100.0); Mean Platelet Volume 10.2 fL (9.4-12.4); Monocytes % 7.9 %; Neutrophils # 8.9 K/mcL (1.6-8.9); Nucleated Red Blood Cells 0.2 /100 WBC (0); Platelet Count 191 K/mcL (140-400); Red Blood Count 3.16 M/mcL (4.19-5.50); Red Cell Distribution Width 13.7 % (11.5-14.5); White Blood Count 12.5 K/mcL (4.3-11.1)
[2019-08-23 04:13] LABS: BUN/Creatinine Ratio 23 (6-26); Blood Urea Nitrogen 24 mg/dL (8-23); Calcium 8.3 mg/dL (8.6-10.3); Carbon Dioxide 23 mEq/L (23-29); Chloride 106 mEq/L (98-107); Glucose 103 mg/dL (70-105); Magnesium 1.8 mg/dL (1.6-2.6); Osmolality,Calculated 286 (280-300); Phosphorous 3.4 mg/dL (2.7-4.5); Potassium 4.6 mEq/L (3.5-5.1); Sodium 136 mEq/L (136-145); eGFR For African Americans > 60 (> 60); eGFR For Non-African Americans > 60 (> 60)
[2019-08-23] MEDS: Pantoprazole 40 MG VIAL IVP SCH (05:55)
[2019-08-23] MEDS ORDERED: OMEGA PO SCH (09:00)
[2019-08-23] MEDS ORDERED: Metoprolol XL (24 HR) Succ 50 MG TAB.ER.24H PO SCH (09:00)
[2019-08-23] MEDS ORDERED: Propofol 500 MG/50 ML INFUS..BTL ONE (09:57)
[2019-08-23] MEDS ORDERED: 0.9 % Sodium Chloride 500 ML IVC SCH (10:45)
[2019-08-23] MEDS: 0.9 % Sodium Chloride 1,000 ML IVC SCH (13:51)
[2019-08-23] MEDS ORDERED: FLU Vac QV 19-20 (6Month+)/PF 0.5 ML SYRINGE IM ONE (15:45)
[2019-08-23 15:46] VITALS: BP 116/81
== END 2019-08-23 16:33 | disposition home or self-care (01) ==
LOC: 3ANU 13:05 → EMEROOARM 13:05 → SUATTDRO 16:06 → 3ANU 17:04
PROVIDERS: ADMIT Internal Medicine; ATTEND Student in an Organized Health Care Education/Training Program
PROC: ENDOCCB (2019-08-23 18:30)

== ENCOUNTER 2021-07-06 11:55 | Inpatient (IN) ==
[2021-07-06] MEDS ORDERED: 0.9 % Sodium Chloride 1,000 ML IVC ONE (11:59)
[2021-07-06 12:33] LABS: Basophils # 0.1 K/mcL (0.0-0.2); Basophils % 0.4 %; Eosinophils % 0.3 %; Hematocrit 28.7 % (37.5-50.1); Hemoglobin 8.8 g/dL (12.9-16.9); Lymphocytes # 0.2 K/mcL (0.6-4.6); Lymphocytes % 1.8 %; Mean Corpuscular HGB Conc 30.7 g/dL (31.6-35.5); Mean Corpuscular Hemoglobin 26.7 pg (28.0-33.3); Mean Platelet Volume 9.9 fL (9.4-12.4); Monocytes # 0.2 K/mcL (0.0-1.3); Monocytes % 1.6 %; Neutrophils # 11.1 K/mcL (1.6-8.9); Platelet Count 274 K/mcL (140-400); Segmented Neutrophils % 92.9 %; White Blood Count 11.9 K/mcL (4.3-11.1)
[2021-07-06 12:40] LABS: INR 1.3; Prothrombin Time 14.9 Seconds (9.4-12.1)
[2021-07-06 12:43] LABS: Activated Partial Thrombo Time 24.6 Seconds (26.0-36.0)
[2021-07-06 13:03] LABS: Albumin 3.3 g/dL (3.5-5.7); Albumin/Globulin Ratio 0.9 (1.1-2.2); Bilirubin,Direct 0.5 mg/dL (0.0-0.2); Bilirubin,Indirect 0.6 mg/dL (0.0-1.0); Bilirubin,Total 1.1 mg/dL (0.3-1.0); Calcium 11.8 mg/dL (8.6-10.3); Globulin 3.6 g/dL (2.4-3.5); Magnesium 1.3 mg/dL (1.6-2.6); Potassium 4.2 mEq/L (3.5-5.1); Total Protein 6.9 g/dL (6.4-8.9); Troponin I 0.07 ng/mL (< 0.04)
[2021-07-06 13:11] LABS: Amorphous Sediment,Urine Few per hpf (None-Few); Bacteria,Urine Few per hpf (None-Few); Bilirubin,Urine Negative (Negative); Blood,Urine Moderate (Negative); Clarity,Urine Turbid (Clear); Color,Urine Light-Yellow (Yellow); Glucose,Urine (UA) Normal (Normal); Ketones,Urine Negative (Negative); Leukocyte Esterase,Urine Large (Negative); Mucus,Urine Few per lpf (None-Few); Nitrite,Urine Positive (Negative); Protein,Urine Trace mg/dL (Neg-Trace); RBC,Urine 50-100 per hpf (0-3); Specific Gravity,Urine 1.013 (1.010-1.025); Squamous Epithelial Cell,Urine Few per hpf (None-Few); Urobilinogen,Urine Normal (Normal); WBC,Urine 50-100 per hpf (0-3)
[2021-07-06] MEDS ORDERED: cefTRIAXone 1,000 MG in Water for inj. (sterile) 10 ML IVP ONE (13:34)
[2021-07-06] MEDS ORDERED: 0.9 % Sodium Chloride 1,000 ML IV ONE (14:45)
[2021-07-06] MEDS ORDERED: *HR* OxyCODONE/APAP 5/325 TABLET PO PRN (16:28)
[2021-07-06] MEDS ORDERED: Metoprolol XL (24 HR) Succ 50 MG TAB.ER.24H PO SCH (17:15)
[2021-07-06] MEDS ORDERED: Ondansetron 4 MG/2 ML VIAL IVP PRN (17:22)
[2021-07-06] MEDS ORDERED: Naloxone 0.4 MG/ML INJ IVP PRN (17:22)
[2021-07-06] MEDS ORDERED: Melatonin 3 MG TABLET PO PRN (17:22)
[2021-07-06] MEDS: Aspirin Enteric Coated 81 MG Tablet PO SCH (21:50)
[2021-07-07 04:06] LABS: Basophils % 0.3 %; Eosinophils % 0.5 %; Hematocrit 25.3 % (37.5-50.1); Hemoglobin 8.1 g/dL (12.9-16.9); Immature Granulocytes % 1.8 % (0-4); Lymphocytes # 0.5 K/mcL (0.6-4.6); Lymphocytes % 7.4 %; Mean Corpuscular Hemoglobin 27.5 pg (28.0-33.3); Mean Corpuscular Volume 85.8 fL (83.0-100.0); Mean Platelet Volume 10.4 fL (9.4-12.4); Monocytes # 0.2 K/mcL (0.0-1.3); Monocytes % 2.7 %; Neutrophils # 5.8 K/mcL (1.6-8.9); Platelet Count 209 K/mcL (140-400); Red Blood Count 2.95 M/mcL (4.19-5.50); Red Cell Distribution Width 16.2 % (11.5-14.5); Segmented Neutrophils % 87.3 %; White Blood Count 6.7 K/mcL (4.3-11.1)
[2021-07-07 04:31] LABS: Alanine Aminotransferase 30 Units/L (7-52); Albumin 2.7 g/dL (3.5-5.7); Albumin/Globulin Ratio 0.9 (1.1-2.2); Alkaline Phosphatase 285 Units/L (34-104); Aspartate Amino Transferase 39 Units/L (13-39); BUN/Creatinine Ratio 18 (6-26); Bilirubin,Direct 0.4 mg/dL (0.0-0.2); Bilirubin,Indirect 0.5 mg/dL (0.0-1.0); Bilirubin,Total 0.9 mg/dL (0.3-1.0); Blood Urea Nitrogen 21 mg/dL (8-23); Carbon Dioxide 21 mEq/L (23-29); Chloride 107 mEq/L (98-107); Globulin 3.1 g/dL (2.4-3.5); Glucose 93 mg/dL (70-105); Magnesium 1.4 mg/dL (1.6-2.6); Osmolality,Calculated 283 (280-300); Phosphorous 1.8 mg/dL (2.7-4.5); Potassium 3.9 mEq/L (3.5-5.1); Sodium 135 mEq/L (136-145); Total Protein 5.8 g/dL (6.4-8.9); eGFR For African Americans > 60 (> 60); eGFR For Non-African Americans > 60 (> 60)
[2021-07-07] MEDS: Metoprolol XL (24 HR) Succ 50 MG TAB.ER.24H PO SCH (08:50)
[2021-07-07] MEDS: cefTRIAXone 1,000 MG in Water for inj. (sterile) 10 ML IVP SCH (08:51)
[2021-07-07] MEDS ORDERED: Metoprolol XL (24 HR) Succ 50 MG TAB.ER.24H PO SCH (09:00)
[2021-07-07 09:10] LABS: Creatine Kinase 202 Units/L (30-223)
[2021-07-07 12:05] LABS: Bacteria,Urine Moderate per hpf (None-Few); Bilirubin,Urine Negative (Negative); Blood,Urine Large (Negative); Clarity,Urine Ex.Turbid (Clear); Color,Urine Yellow (Yellow); Glucose,Urine (UA) Normal (Normal); Ketones,Urine Negative (Negative); Leukocyte Esterase,Urine Large (Negative); Nitrite,Urine Negative (Negative); Protein,Urine 200 mg/dL (Neg-Trace); RBC,Urine TNTC per hpf (0-3); Specific Gravity,Urine 1.014 (1.010-1.025); Triple Phosphate Crystal,Urine Present per hpf; Urobilinogen,Urine Normal (Normal); WBC,Urine TNTC per hpf (0-3)
[2021-07-07] MEDS: Acetaminophen 325 MG TABLET PO PRN (19:38)
[2021-07-07] MEDS: Aspirin Enteric Coated 81 MG Tablet PO SCH (22:10)
[2021-07-08 04:40] LABS: BUN/Creatinine Ratio 20 (6-26); Blood Urea Nitrogen 23 mg/dL (8-23); Calcium 9.3 mg/dL (8.6-10.3); Carbon Dioxide 22 mEq/L (23-29); Chloride 105 mEq/L (98-107); Glucose 90 mg/dL (70-105); Magnesium 1.9 mg/dL (1.6-2.6); Osmolality,Calculated 279 (280-300); Phosphorous 1.7 mg/dL (2.7-4.5); Potassium 3.6 mEq/L (3.5-5.1); Sodium 133 mEq/L (136-145); eGFR For African Americans > 60 (> 60); eGFR For Non-African Americans > 60 (> 60)
[2021-07-08] MEDS ORDERED: Perflutren Lipid Microsphere 1.3 ML in 0.9 % Sodium Chloride 8.7 ML IVP PRN (07:42)
[2021-07-08] MEDS: cefTRIAXone 1,000 MG in Water for inj. (sterile) 10 ML IVP SCH (09:51)
[2021-07-08] MEDS: Metoprolol XL (24 HR) Succ 50 MG TAB.ER.24H PO SCH (09:53)
[2021-07-08 12:03] LABS: Hematocrit 28.5 % (37.5-50.1); Hemoglobin 9.2 g/dL (12.9-16.9); Mean Corpuscular HGB Conc 32.3 g/dL (31.6-35.5); Mean Corpuscular Hemoglobin 27.5 pg (28.0-33.3); Mean Corpuscular Volume 85.1 fL (83.0-100.0); Mean Platelet Volume 11.3 fL (9.4-12.4); Platelet Count 235 K/mcL (140-400); Red Blood Count 3.35 M/mcL (4.19-5.50); Red Cell Distribution Width 16.1 % (11.5-14.5); White Blood Count 11.7 K/mcL (4.3-11.1)
[2021-07-08] MEDS: *HR* Heparin 5,000 UNIT/ML VIAL SQ SCH (18:04)
[2021-07-08] MEDS: Acetaminophen 325 MG TABLET PO PRN (21:18)
[2021-07-08] MEDS: Aspirin Enteric Coated 81 MG Tablet PO SCH (21:18)
[2021-07-09 02:35] LABS: Basophils # 0.1 K/mcL (0.0-0.2); Basophils % 0.4 %; Eosinophils # 0.6 K/mcL (0.0-0.6); Eosinophils % 4.9 %; Hematocrit 29.1 % (37.5-50.1); Immature Granulocytes % 1.2 % (0-4); Lymphocytes # 1.1 K/mcL (0.6-4.6); Lymphocytes % 8.5 %; Mean Corpuscular HGB Conc 30.9 g/dL (31.6-35.5); Mean Corpuscular Hemoglobin 26.2 pg (28.0-33.3); Mean Corpuscular Volume 84.6 fL (83.0-100.0); Mean Platelet Volume 11.1 fL (9.4-12.4); Monocytes # 0.7 K/mcL (0.0-1.3); Neutrophils # 10.3 K/mcL (1.6-8.9); Platelet Count 239 K/mcL (140-400); Red Blood Count 3.44 M/mcL (4.19-5.50)
[2021-07-09 02:42] LABS: White Blood Count 12.9 K/mcL (4.3-11.1)
[2021-07-09 02:51] LABS: Alanine Aminotransferase 22 Units/L (7-52); Albumin 2.8 g/dL (3.5-5.7); Albumin/Globulin Ratio 0.8 (1.1-2.2); Alkaline Phosphatase 341 Units/L (34-104); Aspartate Amino Transferase 29 Units/L (13-39); BUN/Creatinine Ratio 21 (6-26); Bilirubin,Direct 0.2 mg/dL (0.0-0.2); Bilirubin,Indirect 0.4 mg/dL (0.0-1.0); Bilirubin,Total 0.6 mg/dL (0.3-1.0); Blood Urea Nitrogen 22 mg/dL (8-23); Calcium 8.6 mg/dL (8.6-10.3); Carbon Dioxide 21 mEq/L (23-29); Chloride 106 mEq/L (98-107); Globulin 3.7 g/dL (2.4-3.5); Glucose 80 mg/dL (70-105); Magnesium 1.8 mg/dL (1.6-2.6); Osmolality,Calculated 282 (280-300); Phosphorous 1.9 mg/dL (2.7-4.5); Sodium 135 mEq/L (136-145); Total Protein 6.5 g/dL (6.4-8.9); eGFR For African Americans > 60 (> 60); eGFR For Non-African Americans > 60 (> 60)
[2021-07-09] MEDS: *HR* Heparin 5,000 UNIT/ML VIAL SQ SCH ×2 (05:50→17:42)
[2021-07-09] MEDS: Magnesium Oxide 400 MG TABLET PO SCH (07:55)
[2021-07-09] MEDS: Metoprolol XL (24 HR) Succ 50 MG TAB.ER.24H PO SCH (07:55)
[2021-07-09] MEDS: Acetaminophen 325 MG TABLET PO PRN (07:55)
[2021-07-09] MEDS: Patient Taking Own Medication 1 EACH NS SCH (07:56)
[2021-07-09] MEDS: cefTRIAXone 1,000 MG in Water for inj. (sterile) 10 ML IVP SCH (07:56)
[2021-07-09] MEDS ORDERED: Perflutren Lipid Microsphere 1.3 ML in 0.9 % Sodium Chloride 8.7 ML IVP PRN (10:03)
[2021-07-09] MEDS: Aspirin Enteric Coated 81 MG Tablet PO SCH (20:29)
[2021-07-10] MEDS: *HR* Heparin 5,000 UNIT/ML VIAL SQ SCH (05:45)
[2021-07-10] MEDS: Acetaminophen 325 MG TABLET PO PRN (05:51)
[2021-07-10] MEDS: Metoprolol XL (24 HR) Succ 50 MG TAB.ER.24H PO SCH (09:05)
[2021-07-10] MEDS: cefTRIAXone 1,000 MG in Water for inj. (sterile) 10 ML IVP SCH (09:05)
[2021-07-10] MEDS: Magnesium Oxide 400 MG TABLET PO SCH (09:05)
[2021-07-10] MEDS: Patient Taking Own Medication 1 EACH NS SCH (09:06)
[2021-07-10 11:26] VITALS: BP 102/71; PULSE 91; TEMP 98; O2SAT 99
== END 2021-07-10 14:43 | disposition home or self-care (01) | DRG 698 ==
LOC: EMEROOARM 11:55 → 2ANU 11:55 → SUATTDRO 17:30 → 2ANU 18:20
PROVIDERS: ADMIT Internal Medicine; ATTEND Internal Medicine

== ENCOUNTER 2021-07-28 15:23 | Inpatient (IN) ==
[2021-07-28 17:30] LABS: Basophils % 0.3 %; Hematocrit 36.6 % (37.5-50.1); Hemoglobin 11.4 g/dL (12.9-16.9); Lymphocytes # 0.4 K/mcL (0.6-4.6); Lymphocytes % 2.4 %; Mean Corpuscular HGB Conc 31.1 g/dL (31.6-35.5); Mean Corpuscular Volume 83.6 fL (83.0-100.0); Mean Platelet Volume 9.8 fL (9.4-12.4); Monocytes # 0.2 K/mcL (0.0-1.3); Monocytes % 1.1 %; Neutrophils # 14.7 K/mcL (1.6-8.9); Platelet Count 223 K/mcL (140-400); Red Blood Count 4.38 M/mcL (4.19-5.50); Segmented Neutrophils % 93.2 %; White Blood Count 15.8 K/mcL (4.3-11.1)
[2021-07-28] MEDS ORDERED: 0.9 % Sodium Chloride 1,000 ML IVC ONE (17:34)
[2021-07-28] MEDS ORDERED: *HR* HYDROmorphone (PF) 1 MG/ML SYRINGE IVP ONE (17:34)
[2021-07-28] MEDS ORDERED: Ondansetron 4 MG/2 ML VIAL IVP STA (17:38)
[2021-07-28 17:47] LABS: Albumin 3.9 g/dL (3.5-5.7); Albumin/Globulin Ratio 0.9 (1.1-2.2); Bilirubin,Direct 0.3 mg/dL (0.0-0.2); Bilirubin,Indirect 0.5 mg/dL (0.0-1.0); Bilirubin,Total 0.8 mg/dL (0.3-1.0); Calcium 9.3 mg/dL (8.6-10.3); Globulin 4.4 g/dL (2.4-3.5); Potassium 4.4 mEq/L (3.5-5.1); Total Protein 8.3 g/dL (6.4-8.9)
[2021-07-28 18:20] LABS: Amorphous Sediment,Urine Few per hpf (None-Few); Bacteria,Urine Few per hpf (None-Few); Bilirubin,Urine Negative (Negative); Blood,Urine Small (Negative); Clarity,Urine Ex.Turbid (Clear); Color,Urine Yellow (Yellow); Glucose,Urine (UA) Normal (Normal); Hyaline Casts,Urine Moderate per lpf (None Seen); Ketones,Urine Negative (Negative); Leukocyte Esterase,Urine Large (Negative); Mucus,Urine Few per lpf (None-Few); Nitrite,Urine Negative (Negative); Protein,Urine 100 mg/dL (Neg-Trace); Squamous Epithelial Cell,Urine Few per hpf (None-Few); Urobilinogen,Urine Normal (Normal); WBC,Urine 50-100 per hpf (0-3)
[2021-07-28] MEDS ORDERED: Naloxone 0.4 MG/ML INJ IVP PRN (20:07)
[2021-07-28] MEDS ORDERED: Ondansetron 4 MG/2 ML VIAL IVP PRN (20:07)
[2021-07-28] MEDS ORDERED: *HR* Promethazine 25 MG/ML VIAL IM PRN (20:07)
[2021-07-28] MEDS ORDERED: Ketorolac 30 MG/ML VIAL IVP PRN (20:07)
[2021-07-28] MEDS ORDERED: Ketorolac 15 MG/ML VIAL IVP PRN (20:45)
[2021-07-28] MEDS ORDERED: *HR* Metoprolol 5 MG/5 ML VIAL IVP PRN (20:55)
[2021-07-28] MEDS ORDERED: *HR* Metoprolol 5 MG/5 ML VIAL IVP ONE (20:56)
[2021-07-28] MEDS: 0.9 % Sodium Chloride 1,000 ML IVC SCH (22:33)
[2021-07-28] MEDS: MetroNIDAZOLE 500 MG/100 ML 500 MG/100 ML BAG IVPB SCH (22:38)
[2021-07-29 02:05] LABS: Basophils % 0.2 %; Eosinophils % 0.2 %; Hematocrit 32.2 % (37.5-50.1); Immature Granulocytes % 1.1 % (0-4); Lymphocytes # 0.7 K/mcL (0.6-4.6); Lymphocytes % 5.8 %; Mean Corpuscular HGB Conc 31.1 g/dL (31.6-35.5); Mean Corpuscular Hemoglobin 25.9 pg (28.0-33.3); Mean Corpuscular Volume 83.4 fL (83.0-100.0); Mean Platelet Volume 9.9 fL (9.4-12.4); Monocytes # 0.2 K/mcL (0.0-1.3); Neutrophils # 10.3 K/mcL (1.6-8.9); Platelet Count 145 K/mcL (140-400); Red Blood Count 3.86 M/mcL (4.19-5.50); Segmented Neutrophils % 90.7 %; White Blood Count 11.4 K/mcL (4.3-11.1)
[2021-07-29 02:20] LABS: Albumin 3.1 g/dL (3.5-5.7); Albumin/Globulin Ratio 0.8 (1.1-2.2); Bilirubin,Total 0.6 mg/dL (0.3-1.0); Calcium 8.3 mg/dL (8.6-10.3); Globulin 3.7 g/dL (2.4-3.5); Phosphorous 3.3 mg/dL (2.7-4.5); Potassium 4.3 mEq/L (3.5-5.1); Total Protein 6.8 g/dL (6.4-8.9)
[2021-07-29] MEDS: MetroNIDAZOLE 500 MG/100 ML 500 MG/100 ML BAG IVPB SCH ×3 (03:58→20:29)
[2021-07-29] MEDS ORDERED: 0.9 % Sodium Chloride 500 ML IVC ONE (08:06)
[2021-07-29] MEDS ORDERED: levoFLOXacin 500 MG/100 ML 500 MG/100 ML BAG IVPB SCH (09:00)
[2021-07-29] MEDS: Sodium Bicarbonate 50 MEQ in 0.45 % Sodium Chloride 1,000 ML IVC SCH ×2 (09:13→20:20)
[2021-07-29] MEDS: 0.9 % Sodium Chloride 1,000 ML IVC SCH (10:14)
[2021-07-29] MEDS ORDERED: *HR* Metoprolol 5 MG/5 ML VIAL IVP SCH (14:45)
[2021-07-29] MEDS ORDERED: Metoprolol XL (24 HR) Succ 50 MG TAB.ER.24H PO SCH (15:00)
[2021-07-29] MEDS: *HR* Metoprolol 5 MG/5 ML VIAL IVP SCH (20:24)
[2021-07-30] MEDS: *HR* Metoprolol 5 MG/5 ML VIAL IVP SCH ×4 (03:10→20:33)
[2021-07-30] MEDS: MetroNIDAZOLE 500 MG/100 ML 500 MG/100 ML BAG IVPB SCH ×3 (04:05→19:24)
[2021-07-30] MEDS: Sodium Bicarbonate 50 MEQ in 0.45 % Sodium Chloride 1,000 ML IVC SCH ×2 (05:26→16:13)
[2021-07-30] MEDS ORDERED: levoFLOXacin 750 MG/150 ML 750 MG/150 ML BAG IVPB SCH (09:00)
[2021-07-30] MEDS ORDERED: OLANZapine 5 MG TAB.RAPDIS PO SCH (09:00)
[2021-07-30] MEDS ORDERED: *HR* LORazepam 2 MG/ML VIAL IVP ONE (10:34)
[2021-07-30] MEDS ORDERED: Dextrose Gel 15 GM/37.5 ML TUBE PO PRN ×2 (20:46)
[2021-07-30] MEDS ORDERED: *HR* Dextrose 50 % in Water (Syg) 50 ML SYRINGE IVP PRN (20:46)
[2021-07-30] MEDS ORDERED: D5% in Water 1,000 ML IVC PRN (20:46)
[2021-07-31 03:56] LABS: Red Cell Distribution Width 14.8 % (11.5-14.5)
[2021-07-31 03:58] LABS: Hematocrit 31.6 % (37.5-50.1); Immature Platelets 2.5 % (1.1-6.1); Mean Corpuscular HGB Conc 31.6 g/dL (31.6-35.5); Mean Corpuscular Hemoglobin 26.2 pg (28.0-33.3); Mean Corpuscular Volume 82.9 fL (83.0-100.0); Mean Platelet Volume 10.5 fL (9.4-12.4); Red Blood Count 3.81 M/mcL (4.19-5.50); White Blood Count 11.8 K/mcL (4.3-11.1)
[2021-07-31 04:07] LABS: BUN/Creatinine Ratio 28 (6-26); Blood Urea Nitrogen 28 mg/dL (8-23); Calcium 8.5 mg/dL (8.6-10.3); Carbon Dioxide 25 mEq/L (23-29); Chloride 103 mEq/L (98-107); Glucose 80 mg/dL (70-105); Osmolality,Calculated 294 (280-300); Potassium 3.4 mEq/L (3.5-5.1); Sodium 140 mEq/L (136-145); eGFR For African Americans > 60 (> 60); eGFR For Non-African Americans > 60 (> 60)
[2021-07-31] MEDS: MetroNIDAZOLE 500 MG/100 ML 500 MG/100 ML BAG IVPB SCH ×2 (04:21→13:21)
[2021-07-31] MEDS: *HR* Metoprolol 5 MG/5 ML VIAL IVP SCH ×2 (04:21→09:34)
[2021-07-31] MEDS: Sodium Bicarbonate 50 MEQ in 0.45 % Sodium Chloride 1,000 ML IVC SCH (05:26)
[2021-07-31] MEDS: 0.9 % Sodium Chloride 1,000 ML IVC SCH ×2 (06:55→19:55)
[2021-07-31] MEDS ORDERED: levoFLOXacin 750 MG/150 ML 750 MG/150 ML BAG IVPB SCH (15:00)
[2021-07-31] MEDS: *HR* Metoprolol 5 MG/5 ML VIAL IVP PRN (17:38)
[2021-07-31] MEDS ORDERED: Metoprolol XL (24 HR) Succ 50 MG TAB.ER.24H PO ONE (17:55)
[2021-07-31] MEDS ORDERED: Melatonin 3 MG TABLET PO ONE (22:52)
[2021-08-01] MEDS: *HR* Metoprolol 5 MG/5 ML VIAL IVP PRN
[2021-08-01 01:46] LABS: Hemoglobin 9.4 g/dL (12.9-16.9)
[2021-08-01 01:47] LABS: Hematocrit 30.2 % (37.5-50.1); Immature Platelets 3.2 % (1.1-6.1); Mean Corpuscular HGB Conc 31.1 g/dL (31.6-35.5); Mean Corpuscular Hemoglobin 25.8 pg (28.0-33.3); Mean Corpuscular Volume 82.7 fL (83.0-100.0); Mean Platelet Volume 11.1 fL (9.4-12.4); Red Blood Count 3.65 M/mcL (4.19-5.50); Red Cell Distribution Width 14.8 % (11.5-14.5); White Blood Count 7.9 K/mcL (4.3-11.1)
[2021-08-01 02:03] LABS: BUN/Creatinine Ratio 24 (6-26); Blood Urea Nitrogen 20 mg/dL (8-23); Carbon Dioxide 24 mEq/L (23-29); Chloride 103 mEq/L (98-107); Glucose 114 mg/dL (70-105); Osmolality,Calculated 285 (280-300); Potassium 3.4 mEq/L (3.5-5.1); Sodium 136 mEq/L (136-145); eGFR For African Americans > 60 (> 60); eGFR For Non-African Americans > 60 (> 60)
[2021-08-01] MEDS ORDERED: Metoprolol XL (24 HR) Succ 50 MG TAB.ER.24H PO SCH (09:00)
[2021-08-01] MEDS: 0.9 % Sodium Chloride 1,000 ML IVC SCH (09:49)
[2021-08-01 12:00] VITALS: BP 120/83; PULSE 84; TEMP 98.3; O2SAT 96
[2021-08-01] MEDS ORDERED: 0.9 % Sodium Chloride 500 ML ONE (13:52)
[2021-08-01] MEDS ORDERED: Metoprolol XL (24 HR) Succ 50 MG TAB.ER.24H PO ONE (15:00)
== END 2021-08-01 17:52 | disposition left against medical advice (07) | DRG 394 ==
LOC: 2ANU 15:23 → EMEROOARM 15:23 → 2ANU 21:20 → SUATTDRO 07-29 18:58
PROVIDERS: ADMIT Internal Medicine; ATTEND Internal Medicine

== ENCOUNTER 2021-08-30 11:42 | Inpatient (IN) ==
[2021-08-30] MEDS ORDERED: Aspirin 81 MG TAB.CHEW PO ONE (13:00)
[2021-08-30] MEDS ORDERED: Isovue-370 500 ML BOTTLE IVP ONE (13:13)
[2021-08-30 13:30] LABS: Hematocrit 26.1 % (37.5-50.1)
[2021-08-30 13:31] LABS: Hemoglobin 8.4 g/dL (12.9-16.9); Immature Granulocytes % 2.6 % (0-4); Immature Platelets 1.7 % (1.1-6.1); Lymphocytes # 0.1 K/mcL (0.6-4.6); Mean Corpuscular HGB Conc 32.2 g/dL (31.6-35.5); Mean Corpuscular Hemoglobin 26.2 pg (28.0-33.3); Mean Corpuscular Volume 81.3 fL (83.0-100.0); Mean Platelet Volume 9.2 fL (9.4-12.4); Red Blood Count 3.21 M/mcL (4.19-5.50); White Blood Count 2.3 K/mcL (4.3-11.1)
[2021-08-30 13:45] LABS: INR 1.3; Prothrombin Time 14.8 Seconds (9.4-12.1)
[2021-08-30 13:47] LABS: Activated Partial Thrombo Time 24.2 Seconds (26.0-36.0)
[2021-08-30 13:54] LABS: Calcium 6.7 mg/dL (8.6-10.3); Potassium 3.8 mEq/L (3.5-5.1)
[2021-08-30 13:58] LABS: Platelet Count 62 K/mcL (140-400)
[2021-08-30 13:59] LABS: Neutrophils # 2.2 K/mcL (1.6-8.9); Platelet Estimate Decreased (Normal)
[2021-08-30 14:04] LABS: Troponin I 0.15 ng/mL (< 0.04)
[2021-08-30] MEDS: DilTIAZem 50 MG/50 ML IV.SOLN IVC SCH ×3 (15:07→23:59)
[2021-08-30 15:16] LABS: Influenza A PCR Negative (Negative); Influenza B PCR Negative (Negative); Resp. Syncytial Virus PCR Negative (Negative)
[2021-08-30 15:17] LABS: SARS-CoV-2 by PCR (In House) Negative (Negative)
[2021-08-30] MEDS ORDERED: Naloxone 0.4 MG/ML INJ IVP PRN (16:03)
[2021-08-31 01:57] LABS: Basophils % 2.1 %; Hematocrit 23.8 % (37.5-50.1); Hemoglobin 7.7 g/dL (12.9-16.9); Immature Granulocytes % 8.3 % (0-4); Immature Platelets 1.6 % (1.1-6.1); Lymphocytes # 0.1 K/mcL (0.6-4.6); Lymphocytes % 22.9 %; Mean Corpuscular HGB Conc 32.4 g/dL (31.6-35.5); Mean Corpuscular Hemoglobin 26.2 pg (28.0-33.3); Mean Platelet Volume 10.7 fL (9.4-12.4); Monocytes % 4.2 %; Neutrophils # 0.3 K/mcL (1.6-8.9); Red Blood Count 2.94 M/mcL (4.19-5.50); Red Cell Distribution Width 18.1 % (11.5-14.5); Segmented Neutrophils % 62.5 %
[2021-08-31 02:09] LABS: Calcium 6.2 mg/dL (8.6-10.3); Magnesium 1.2 mg/dL (1.6-2.6); Phosphorous 2.8 mg/dL (2.7-4.5); Potassium 3.8 mEq/L (3.5-5.1)
[2021-08-31 03:02] LABS: Platelet Count 47 K/mcL (140-400)
[2021-08-31 03:14] LABS: White Blood Count 0.5 K/mcL (4.3-11.1)
[2021-08-31] MEDS: DilTIAZem 50 MG/50 ML IV.SOLN IVC SCH ×2 (03:41→09:00)
[2021-08-31] MEDS ORDERED: Magnesium Sulfate 1 GM/102 ML PIGGYBACK IVPB ONE ×2 (03:53→07:20)
[2021-08-31] MEDS: Calcium Gluconate 1gm/50mL 1 GM/50 ML BAG IVPB SCH ×2 (04:28→05:30)
[2021-08-31] MEDS ORDERED: *HR* Metoprolol 5 MG/5 ML VIAL IVP ONE (04:40)
[2021-08-31] MEDS: OLANZapine 5 MG TAB.RAPDIS PO SCH (08:59)
[2021-08-31] MEDS: Magnesium Oxide 400 MG TABLET PO SCH (08:59)
[2021-08-31] MEDS ORDERED: Perflutren Lipid Microsphere 1.3 ML in 0.9 % Sodium Chloride 8.7 ML IVP PRN (09:16)
[2021-09-01 02:16] LABS: Hematocrit 22.5 % (37.5-50.1); Hemoglobin 7.5 g/dL (12.9-16.9); Immature Granulocytes % 3.1 % (0-4); Immature Platelets 1.3 % (1.1-6.1); Lymphocytes # 0.1 K/mcL (0.6-4.6); Lymphocytes % 31.3 %; Mean Corpuscular HGB Conc 33.3 g/dL (31.6-35.5); Mean Corpuscular Hemoglobin 26.9 pg (28.0-33.3); Mean Corpuscular Volume 80.6 fL (83.0-100.0); Mean Platelet Volume 10.7 fL (9.4-12.4); Monocytes % 6.3 %; Neutrophils # 0.2 K/mcL (1.6-8.9); Red Blood Count 2.79 M/mcL (4.19-5.50); Red Cell Distribution Width 18.1 % (11.5-14.5); Segmented Neutrophils % 59.3 %
[2021-09-01 02:19] LABS: Calcium 6.2 mg/dL (8.6-10.3); Magnesium 1.5 mg/dL (1.6-2.6); Potassium 3.7 mEq/L (3.5-5.1)
[2021-09-01 02:20] LABS: Platelet Count 30 K/mcL (140-400); White Blood Count 0.3 K/mcL (4.3-11.1)
[2021-09-01 02:41] LABS: Anisocytosis 1+ (Not Present); Hypochromasia Present (Not Present); Platelet Estimate Marked Decrease (Normal)
[2021-09-01] MEDS: Magnesium Oxide 400 MG TABLET PO SCH (11:00)
[2021-09-01] MEDS: OLANZapine 5 MG TAB.RAPDIS PO SCH (11:00)
[2021-09-01] MEDS: Acetaminophen 325 MG TABLET PO PRN (13:05)
[2021-09-01] MEDS: Metoprolol XL (24 HR) Succ 50 MG TAB.ER.24H PO SCH ×2 (13:34→20:40)
[2021-09-01 13:38] LABS: Bacteria,Urine Few per hpf (None-Few); Bilirubin,Urine Negative (Negative); Blood,Urine Moderate (Negative); Clarity,Urine Ex.Turbid (Clear); Color,Urine Yellow (Yellow); Glucose,Urine (UA) Normal (Normal); Ketones,Urine Negative (Negative); Leukocyte Esterase,Urine Large (Negative); Mucus,Urine Few per lpf (None-Few); Nitrite,Urine Negative (Negative); Protein,Urine 200 mg/dL (Neg-Trace); RBC,Urine 15-30 per hpf (0-3); Specific Gravity,Urine 1.012 (1.010-1.025); Urobilinogen,Urine Normal (Normal); WBC,Urine TNTC per hpf (0-3)
[2021-09-01] MEDS: Cefepime HCl 2,000 MG in 0.9 % Sodium Chloride Mini Bag 100 ML IVPB SCH (17:11)
[2021-09-01] MEDS ORDERED: Metoprolol XL (24 HR) Succ 50 MG TAB.ER.24H PO SCH (21:00)
[2021-09-02] MEDS: Cefepime HCl 2,000 MG in 0.9 % Sodium Chloride Mini Bag 100 ML IVPB SCH ×2 (05:45→19:31)
[2021-09-02 06:55] LABS: Hemoglobin 8.3 g/dL (12.9-16.9); Red Cell Distribution Width 18.2 % (11.5-14.5)
[2021-09-02 06:57] LABS: Hematocrit 24.7 % (37.5-50.1); Immature Platelets 2.4 % (1.1-6.1); Lymphocytes # 0.1 K/mcL (0.6-4.6); Lymphocytes % 13.6 %; Mean Corpuscular HGB Conc 33.6 g/dL (31.6-35.5); Mean Corpuscular Volume 80.5 fL (83.0-100.0); Monocytes % 3.4 %; Neutrophils # 0.5 K/mcL (1.6-8.9); Red Blood Count 3.07 M/mcL (4.19-5.50)
[2021-09-02 07:05] LABS: White Blood Count 0.6 K/mcL (4.3-11.1)
[2021-09-02 07:06] LABS: Platelet Count 15 K/mcL (140-400)
[2021-09-02 07:15] LABS: Calcium 6.1 mg/dL (8.6-10.3); Potassium 3.9 mEq/L (3.5-5.1)
[2021-09-02 07:16] LABS: Anisocytosis 1+ (Not Present); Hypochromasia Present (Not Present); Platelet Estimate Marked Decrease (Normal)
[2021-09-02] MEDS: Metoprolol XL (24 HR) Succ 50 MG TAB.ER.24H PO SCH ×2 (08:48→20:34)
[2021-09-02] MEDS: Magnesium Oxide 400 MG TABLET PO SCH (08:48)
[2021-09-02] MEDS: OLANZapine 5 MG TAB.RAPDIS PO SCH (08:55)
[2021-09-02] MEDS ORDERED: 0.9 % Sodium Chloride 250 ML ONE ×2 (11:49→23:10)
[2021-09-02 15:12] LABS: Hematocrit 22.3 % (37.5-50.1); Hemoglobin 7.1 g/dL (12.9-16.9); Mean Corpuscular HGB Conc 31.8 g/dL (31.6-35.5)
[2021-09-02 15:15] LABS: Immature Platelets 1.7 % (1.1-6.1); Mean Corpuscular Hemoglobin 25.9 pg (28.0-33.3); Mean Corpuscular Volume 81.4 fL (83.0-100.0); Red Blood Count 2.74 M/mcL (4.19-5.50)
[2021-09-02] MEDS ORDERED: 0.9 % Sodium Chloride 1,000 ML IVC SCH (15:15)
[2021-09-02 15:43] LABS: Platelet Count 16 K/mcL (140-400); White Blood Count 0.6 K/mcL (4.3-11.1)
[2021-09-02 16:30] LABS: Lymphocytes # 0.2 K/mcL (0.6-4.6); Neutrophils # 0.4 K/mcL (1.6-8.9)
[2021-09-02 16:31] LABS: Platelet Estimate Marked Decrease (Normal)
[2021-09-02] MEDS ORDERED: 0.9 % Sodium Chloride 500 ML ONE (16:56)
[2021-09-02 22:59] LABS: Hematocrit 22.4 % (37.5-50.1); Hemoglobin 7.3 g/dL (12.9-16.9); Immature Platelets 1.4 % (1.1-6.1); Mean Corpuscular HGB Conc 32.6 g/dL (31.6-35.5); Mean Corpuscular Hemoglobin 26.4 pg (28.0-33.3); Mean Corpuscular Volume 80.9 fL (83.0-100.0); Mean Platelet Volume 9.7 fL (9.4-12.4); Red Blood Count 2.77 M/mcL (4.19-5.50); Red Cell Distribution Width 18.1 % (11.5-14.5)
[2021-09-02 23:01] LABS: White Blood Count 0.6 K/mcL (4.3-11.1)
[2021-09-03 01:41] LABS: Hematocrit 20.8 % (37.5-50.1); Hemoglobin 6.8 g/dL (12.9-16.9); Lymphocytes # 0.1 K/mcL (0.6-4.6); Lymphocytes % 24.4 %; Mean Corpuscular HGB Conc 32.7 g/dL (31.6-35.5); Mean Corpuscular Hemoglobin 26.6 pg (28.0-33.3); Mean Corpuscular Volume 81.3 fL (83.0-100.0); Monocytes % 7.3 %; Neutrophils # 0.3 K/mcL (1.6-8.9); Red Blood Count 2.56 M/mcL (4.19-5.50); Red Cell Distribution Width 18.1 % (11.5-14.5); Segmented Neutrophils % 68.3 %
[2021-09-03 01:45] LABS: Platelet Count 21 K/mcL (140-400); White Blood Count 0.4 K/mcL (4.3-11.1)
[2021-09-03 01:57] LABS: Calcium 5.6 mg/dL (8.6-10.3); Potassium 3.4 mEq/L (3.5-5.1)
[2021-09-03 02:02] LABS: Anisocytosis 1+ (Not Present); Hypochromasia Present (Not Present); Platelet Estimate Marked Decrease (Normal)
[2021-09-03] MEDS: Cefepime HCl 2,000 MG in 0.9 % Sodium Chloride Mini Bag 100 ML IVPB SCH ×2 (05:33→17:33)
[2021-09-03] MEDS ORDERED: 0.9 % Sodium Chloride 250 ML ONE (06:15)
[2021-09-03] MEDS: Metoprolol XL (24 HR) Succ 50 MG TAB.ER.24H PO SCH ×2 (09:19→19:57)
[2021-09-03] MEDS: OLANZapine 5 MG TAB.RAPDIS PO SCH (09:21)
[2021-09-03] MEDS: Magnesium Oxide 400 MG TABLET PO SCH (09:22)
[2021-09-03 11:20] LABS: Mean Corpuscular Volume 80.5 fL (83.0-100.0)
[2021-09-03 11:22] LABS: Hematocrit 21.5 % (37.5-50.1); Immature Platelets 1.6 % (1.1-6.1); Lymphocytes # 0.1 K/mcL (0.6-4.6); Mean Corpuscular HGB Conc 32.6 g/dL (31.6-35.5); Mean Corpuscular Hemoglobin 26.2 pg (28.0-33.3); Mean Platelet Volume 9.8 fL (9.4-12.4); Red Blood Count 2.67 M/mcL (4.19-5.50); Red Cell Distribution Width 18.1 % (11.5-14.5)
[2021-09-03 11:26] LABS: Platelet Count 27 K/mcL (140-400); White Blood Count 0.4 K/mcL (4.3-11.1)
[2021-09-03 12:11] LABS: Neutrophils # 0.3 K/mcL (1.6-8.9); Platelet Estimate Marked Decrease (Normal)
[2021-09-03 12:13] LABS: Anisocytosis 1+ (Not Present); Hypochromasia Present (Not Present)
[2021-09-03] MEDS: Calcium Gluconate 1gm/50mL 1 GM/50 ML BAG IVPB SCH ×2 (14:20→15:17)
[2021-09-03 15:48] LABS: Hemoglobin 9.5 g/dL (12.9-16.9); Red Cell Distribution Width 18.1 % (11.5-14.5)
[2021-09-03 15:50] LABS: Hematocrit 29.4 % (37.5-50.1); Immature Platelets 2.1 % (1.1-6.1); Mean Corpuscular HGB Conc 32.3 g/dL (31.6-35.5); Mean Corpuscular Hemoglobin 26.7 pg (28.0-33.3); Mean Corpuscular Volume 82.6 fL (83.0-100.0); Mean Platelet Volume 9.3 fL (9.4-12.4); Monocytes # 0.1 K/mcL (0.0-1.3); Red Blood Count 3.56 M/mcL (4.19-5.50)
[2021-09-03 15:54] LABS: Platelet Count 35 K/mcL (140-400)
[2021-09-03 15:55] LABS: White Blood Count 0.7 K/mcL (4.3-11.1)
[2021-09-03 16:20] LABS: Lymphocytes # 0.2 K/mcL (0.6-4.6); Neutrophils # 0.5 K/mcL (1.6-8.9)
[2021-09-03 16:21] LABS: Anisocytosis 1+ (Not Present); Hypochromasia Present (Not Present); Platelet Estimate Marked Decrease (Normal)
[2021-09-03] MEDS: DilTIAZem 50 MG/50 ML IV.SOLN IVC SCH (17:53)
[2021-09-04 01:40] LABS: Hematocrit 23.9 % (37.5-50.1); Hemoglobin 7.6 g/dL (12.9-16.9); Immature Granulocytes % 3.6 % (0-4); Lymphocytes # 0.2 K/mcL (0.6-4.6); Lymphocytes % 30.4 %; Mean Corpuscular HGB Conc 31.8 g/dL (31.6-35.5); Mean Corpuscular Hemoglobin 26.7 pg (28.0-33.3); Mean Corpuscular Volume 83.9 fL (83.0-100.0); Monocytes # 0.1 K/mcL (0.0-1.3); Monocytes % 17.9 %; Neutrophils # 0.3 K/mcL (1.6-8.9); Nucleated Red Blood Cells 3.6 /100 WBC (0); Red Blood Count 2.85 M/mcL (4.19-5.50); Red Cell Distribution Width 17.7 % (11.5-14.5); Segmented Neutrophils % 48.1 %
[2021-09-04 01:43] LABS: Platelet Count 29 K/mcL (140-400); White Blood Count 0.6 K/mcL (4.3-11.1)
[2021-09-04 02:16] LABS: BUN/Creatinine Ratio 29 (6-26); Blood Urea Nitrogen 39 mg/dL (8-23); Calcium 5.8 mg/dL (8.6-10.3); Carbon Dioxide 16 mEq/L (23-29); Chloride 106 mEq/L (98-107); Glucose 109 mg/dL (70-105); Osmolality,Calculated 288 (280-300); Potassium 3.6 mEq/L (3.5-5.1); Sodium 134 mEq/L (136-145); eGFR For African Americans > 60 (> 60); eGFR For Non-African Americans 52 (> 60)
[2021-09-04 02:19] LABS: Anisocytosis 1+ (Not Present)
[2021-09-04 02:20] LABS: Hypochromasia Present (Not Present); Platelet Estimate Marked Decrease (Normal)
[2021-09-04] MEDS ORDERED: Calcium Gluconate 1gm/50mL 1 GM/50 ML BAG IVPB ONE ×2 (02:59→08:00)
[2021-09-04] MEDS: Cefepime HCl 2,000 MG in 0.9 % Sodium Chloride Mini Bag 100 ML IVPB SCH ×2 (05:26→17:19)
[2021-09-04] MEDS: Metoprolol XL (24 HR) Succ 50 MG TAB.ER.24H PO SCH ×2 (09:21→21:01)
[2021-09-04] MEDS: OLANZapine 5 MG TAB.RAPDIS PO SCH (09:21)
[2021-09-04] MEDS: Magnesium Oxide 400 MG TABLET PO SCH (09:21)
[2021-09-04 13:46] LABS: Hematocrit 26.5 % (37.5-50.1); Hemoglobin 8.8 g/dL (12.9-16.9)
[2021-09-04] MEDS: DilTIAZem 50 MG/50 ML IV.SOLN IVC SCH (14:32)
[2021-09-04] MEDS: Acetaminophen 325 MG TABLET PO PRN (23:49)
[2021-09-05 01:32] LABS: Hemoglobin 7.6 g/dL (12.9-16.9); Red Cell Distribution Width 17.9 % (11.5-14.5)
[2021-09-05 01:34] LABS: Hematocrit 24.1 % (37.5-50.1); Immature Granulocytes % 11.1 % (0-4); Immature Platelets 5.5 % (1.1-6.1); Lymphocytes # 0.3 K/mcL (0.6-4.6); Lymphocytes % 34.4 %; Mean Corpuscular HGB Conc 31.5 g/dL (31.6-35.5); Mean Corpuscular Hemoglobin 26.3 pg (28.0-33.3); Mean Corpuscular Volume 83.4 fL (83.0-100.0); Mean Platelet Volume 10.6 fL (9.4-12.4); Monocytes # 0.3 K/mcL (0.0-1.3); Monocytes % 27.8 %; Neutrophils # 0.2 K/mcL (1.6-8.9); Red Blood Count 2.89 M/mcL (4.19-5.50); Segmented Neutrophils % 26.7 %
[2021-09-05 01:40] LABS: Platelet Count 28 K/mcL (140-400); White Blood Count 0.9 K/mcL (4.3-11.1)
[2021-09-05 02:01] LABS: Anisocytosis 1+ (Not Present); Hypochromasia Present (Not Present); Platelet Estimate Marked Decrease (Normal)
[2021-09-05 04:27] LABS: BUN/Creatinine Ratio 29 (6-26); Blood Urea Nitrogen 34 mg/dL (8-23); Calcium 6.2 mg/dL (8.6-10.3); Carbon Dioxide 13 mEq/L (23-29); Chloride 110 mEq/L (98-107); Glucose 112 mg/dL (70-105); Magnesium 1.4 mg/dL (1.6-2.6); Osmolality,Calculated 292 (280-300); Sodium 137 mEq/L (136-145); eGFR For African Americans > 60 (> 60); eGFR For Non-African Americans > 60 (> 60)
[2021-09-05] MEDS ORDERED: Calcium Gluconate 1gm/50mL 1 GM/50 ML BAG IVPB ONE ×2 (05:04→07:42)
[2021-09-05] MEDS: Cefepime HCl 2,000 MG in 0.9 % Sodium Chloride Mini Bag 100 ML IVPB SCH (06:15)
[2021-09-05] MEDS: Metoprolol XL (24 HR) Succ 50 MG TAB.ER.24H PO SCH ×2 (08:39→20:33)
[2021-09-05] MEDS: levoFLOXacin 750 MG TABLET PO SCH (08:39)
[2021-09-05] MEDS: Magnesium Oxide 400 MG TABLET PO SCH (08:39)
[2021-09-05] MEDS: OLANZapine 5 MG TAB.RAPDIS PO SCH (08:39)
[2021-09-05] MEDS: Acetaminophen 325 MG TABLET PO PRN (09:44)
[2021-09-06 01:35] LABS: Red Cell Distribution Width 17.8 % (11.5-14.5)
[2021-09-06 01:37] LABS: Basophils # 0.1 K/mcL (0.0-0.2); Basophils % 1.9 %; Hematocrit 26.1 % (37.5-50.1); Hemoglobin 8.3 g/dL (12.9-16.9); Immature Platelets 8.5 % (1.1-6.1); Lymphocytes # 0.6 K/mcL (0.6-4.6); Lymphocytes % 21.5 %; Mean Corpuscular HGB Conc 31.8 g/dL (31.6-35.5); Mean Corpuscular Hemoglobin 26.5 pg (28.0-33.3); Mean Corpuscular Volume 83.4 fL (83.0-100.0); Mean Platelet Volume 10.9 fL (9.4-12.4); Monocytes # 0.4 K/mcL (0.0-1.3); Monocytes % 14.3 %; Neutrophils # 0.8 K/mcL (1.6-8.9); Red Blood Count 3.13 M/mcL (4.19-5.50); Segmented Neutrophils % 28.3 %; White Blood Count 2.7 K/mcL (4.3-11.1)
[2021-09-06] MEDS: Acetaminophen 325 MG TABLET PO PRN (01:40)
[2021-09-06 01:46] LABS: BUN/Creatinine Ratio 25 (6-26); Blood Urea Nitrogen 26 mg/dL (8-23); Calcium 6.7 mg/dL (8.6-10.3); Carbon Dioxide 17 mEq/L (23-29); Chloride 107 mEq/L (98-107); Glucose 93 mg/dL (70-105); Magnesium 1.7 mg/dL (1.6-2.6); Osmolality,Calculated 282 (280-300); Potassium 3.8 mEq/L (3.5-5.1); Sodium 134 mEq/L (136-145); eGFR For African Americans > 60 (> 60); eGFR For Non-African Americans > 60 (> 60)
[2021-09-06 01:50] LABS: Platelet Count 44 K/mcL (140-400)
[2021-09-06 02:29] LABS: Hypochromasia Present (Not Present); Platelet Estimate Decreased (Normal); Reactive Lymphocytes Present (Not Present)
[2021-09-06] MEDS: Magnesium Oxide 400 MG TABLET PO SCH (10:05)
[2021-09-06] MEDS: levoFLOXacin 750 MG TABLET PO SCH (10:06)
[2021-09-06] MEDS: Metoprolol XL (24 HR) Succ 50 MG TAB.ER.24H PO SCH (10:07)
[2021-09-06] MEDS: OLANZapine 5 MG TAB.RAPDIS PO SCH (10:07)
[2021-09-06 10:48] VITALS: BP 142/84; PULSE 109; TEMP 97.1; O2SAT 99
== END 2021-09-06 15:42 | disposition home or self-care (01) | DRG 871 ==
LOC: 2ANU 11:42 → EMEROOARM 11:42 → SUATTDRO 17:32 → 2ANU 18:16 → SUATTDRO 09-02 13:30
PROVIDERS: ADMIT Family Medicine; ATTEND Internal Medicine